=== PATIENT | female | born 1960 | race Caucasian/White ===

== ENCOUNTER 2018-11-08 18:56 | Inpatient (IN) | payer OTHER ==
[~2018-11-08] VITALS: Ht 165.1 cm; Wt 161.0 kg
[~2018-11-08 18:56] MED LIST: IBUP-974
[2018-11-08 19:24] VITALS: BP 163/77
--- NOTE | 2018-11-08 21:04 | NUR ---
PT AMBULATED TO BED 4 AT THIS TIME.
--- NOTE | 2018-11-08 21:15 | NUR ---
PATIENT PRESENTS TO ED WITH SOB AND LOWER EXTREMITY WEAKNESS. PT C/O SOB X8 DAYS, BILATERALY LOWER EXTREMITY WEAKNESS X2 MONTHS. PT DENIES CP AT THIS TIME, BUT STATES TO GET CHEST PAIN AT HS X1 WEEK. DENIES N/V/D; SKIN IS PINK/WARM/DRY; AAOX4 WITH EVEN AND STEADY GAIT BY WALKER; LUNGS CLEAR BL; HR EVEN AND REGULAR; PT DENIES ANY FEVER, OR COUGH AT THIS TIME; PATIENT STATES PAIN OF 10/10 IN BILATERAL LEGS AT THIS TIME; VSS; PATIENT POSITIONED FOR COMFORT; HOB ELEVATED; BEDRAILS UP X2; BED DOWN. ER MD MADE AWARE OF PT STATUS. PMH: HTN, DM, ARTHRITIS, HYPERLIPIDEMIA RX: WILL PROVIDE LIST
--- NOTE | 2018-11-08 21:16 | NUR ---
LAB AND RT AT BEDSIDE FOR BLOOD DRAWS.
--- NOTE | 2018-11-08 21:34 | NUR ---
ABG DONE ON ROOM AIR. RESULTS GIVEN TO MD MUHAMMAD. PLACED PT ON 2 L NC. SPO2 IS NOW 95%. MD MUHAMMAD AWARE AND AGREES. NO NEW ORDERS YET.
[2018-11-08 21:37] LABS: BASOPHILS % (AUTO) 0.4 % (0.0-2.0); EOSINOPHILS # (AUTO) 0.1 K/uL (0-0.4); EOSINOPHILS % (AUTO) 0.7 % (0.0-4.0); HEMATOCRIT 44.2 % (36-48); HEMOGLOBIN 13.4 g/dL (12.0-16.0); LYMPHOCYTES # (AUTO) 1.5 K/uL (2.5-16.5); LYMPHOCYTES % (AUTO) 20.1 % (20.5-51.1); MEAN CORPUSCULAR HEMOGLOBIN 26 pg (27-31); MEAN CORPUSCULAR HGB CONC 30 g/dL (33-37); MEAN CORPUSCULAR VOLUME 84.6 fL (80-94); MONOCYTES # (AUTO) 0.4 K/uL (0.8-1.0); MONOCYTES % (AUTO) 5.7 % (1.7-9.3); NEUTROPHILS # (AUTO) 5.5 K/uL (1.8-7.7); NEUTROPHILS % (AUTO) 73.1 % (42.2-75.2); PLATELET COUNT (AUTO) 156 K/uL (140-450); RED BLOOD CELL COUNT(AUTO) 5.22 MIL/uL (4.20-5.40); RED CELL DISTRIBUTION WIDTH 16.9 % (11.6-13.7); WHITE BLOOD COUNT (AUTO) 7.5 K/uL (4.8-10.8)
[2018-11-08 21:58] LABS: APPEARANCE,URINE CLEAR (CLEAR); BILIRUBIN,URINE NEGATIVE (NEGATIVE); BLOOD, URINE NEGATIVE (NEGATIVE); COLOR,URINE YELLOW (YELLOW); LEUKOCYTE ESTERASE ,URINE NEGATIVE (NEGATIVE); NITRITE, URINE NEGATIVE (NEGATIVE); UGLUCOSE NEGATIVE (NEGATIVE)
[2018-11-08 22:10] LABS: PROTHROMBIN TIME 10.6 secs (10.8-13.4)
[2018-11-08 22:11] LABS: ALBUMIN 3.2 g/dL (3.4-5.0); ANION GAP 9.8 (8-16); CARBON DIOXIDE 33.6 mmol/L (21-32); CREATININE 0.9 mg/dL (0.6-1.3); POTASSIUM 4.4 mmol/L (3.5-5.1); TOTAL BILIRUBIN 0.4 mg/dL (0.0-1.0)
[2018-11-08] MEDS ORDERED: FUROSEMIDE 40 MG/4 ML VIAL IVP ONE (23:00)
[2018-11-08] MEDS ORDERED: NITROGLYCERIN 2% 1 GM PKT TP ONE (23:00)
--- NOTE | 2018-11-08 23:00 | NUR ---
CALL FROM DONNA W/ PT INSURANCE, WILL BE ADMITING THE PT FOR OBSERVATION LEVEL OF CARE. ER AWARE.
[2018-11-09] VITALS (13 sets, daily range): BP systolic 91–138; BP diastolic 46–77
[2018-11-09] MEDS ORDERED: MORPHINE SULFATE 2 MG/ML SYR IVP PRN (00:15)
[2018-11-09] MEDS ORDERED: LORazepam 2 MG/ML VIAL IM/IVP PRN (00:15)
[2018-11-09] MEDS ORDERED: ZOLPIDEM 5 MG TAB PO PRN (00:15)
[2018-11-09] MEDS ORDERED: DOCUSATE SODIUM 100 MG GELCAP PO PRN (00:15)
[2018-11-09] MEDS ORDERED: ONDANSETRON 4 MG/2 ML VIAL IM/IVP PRN (00:15)
[2018-11-09] MEDS ORDERED: ACETAMINOPHEN 325 MG TAB PO PRN (00:15)
[2018-11-09] MEDS ORDERED: HYDROcodone/APAP 5/325 MG 1 TAB TAB PO PRN (00:15)
[2018-11-09] MEDS ORDERED: NITROGLYCERIN 0.4 MG TAB SL PRN (00:20)
[2018-11-09 00:39] LABS: BARBITURATE, URINE NEG. ng/ml (NEG <=200); BENZODIAZEPINE, URINE NEG. ng/mL (NEG <=200); CANNABINOID, URINE NEG. ng/mL (NEG <=50); COCAINE, URINE NEG. ng/mL (NEG <=300); OPIATE, URINE NEG. ng/mL (NEG <=2000); PHENCYCLIDINE SCREEN,URINE NEG. ng/mL (NEG <=25)
[2018-11-09 00:49] LABS: MAGNESIUM 1.7 mg/dL (1.8-2.4); PHOSPHORUS 3.9 mg/dL (2.5-4.9); THYROID STIMULATING HORMONE 4.72 uIU/mL (0.34-3.74)
[2018-11-09] MEDS ORDERED: ORE25 PO (00:50)
[2018-11-09] MEDS ORDERED: ASPI-1718 PO (00:54)
[2018-11-09] MEDS ORDERED: IBUP-2213 PO (00:54)
[2018-11-09] MEDS ORDERED: ATEN50TA8 PO (00:54)
[2018-11-09] MEDS ORDERED: ATOR10TA51 PO (00:54)
[2018-11-09] MEDS ORDERED: METF500T PO (00:54)
--- NOTE | 2018-11-09 03:00 | NUR ---
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
--- NOTE | 2018-11-09 03:08 | NUR ---
Admited to Tele. Will go to room 113. Belongings list completed. Report to Alta SHEPPARD.
[2018-11-09] MEDS: NACL 0.9% 1,000 ML IV SCH ×2 (03:33→16:53)
[2018-11-09] MEDS ORDERED: DEXTROSE 50% 50 ML SYR IVP PRN (04:25)
[2018-11-09] MEDS ORDERED: MAG SULF 2000 MG/WATER PREMIX 50 ML IV SCH (04:45)
--- NOTE | 2018-11-09 05:00 | NUR ---
PT HAS BEEN MONITORING CLOSE ASSISTING TO THE RESTROOM VOIDING WELL NOT SOB NOTED , ON TELEMETRY SB
[2018-11-09] MEDS: BLOOD GLUCOSE MONITORING 1 DEV DEV FS SCH ×4 (06:08→21:15)
[2018-11-09 06:25] LABS: BASOPHILS % (AUTO) 0.4 % (0.0-2.0); EOSINOPHILS # (AUTO) 0.1 K/uL (0-0.4); EOSINOPHILS % (AUTO) 1.4 % (0.0-4.0); HEMATOCRIT 43.2 % (36-48); LYMPHOCYTES # (AUTO) 1.8 K/uL (2.5-16.5); LYMPHOCYTES % (AUTO) 24.6 % (20.5-51.1); MEAN CORPUSCULAR HEMOGLOBIN 26 pg (27-31); MEAN CORPUSCULAR HGB CONC 30 g/dL (33-37); MONOCYTES # (AUTO) 0.5 K/uL (0.8-1.0); MONOCYTES % (AUTO) 6.6 % (1.7-9.3); NEUTROPHILS # (AUTO) 4.9 K/uL (1.8-7.7); PLATELET COUNT (AUTO) 163 K/uL (140-450); RED BLOOD CELL COUNT(AUTO) 5.09 MIL/uL (4.20-5.40); RED CELL DISTRIBUTION WIDTH 16.8 % (11.6-13.7); WHITE BLOOD COUNT (AUTO) 7.3 K/uL (4.8-10.8)
--- NOTE | 2018-11-09 06:25 | NUR ---
SR ON TELMETRY BLOOD SUGAR TEST 87, PT REMAINSTABLE AT THIS TIME
[2018-11-09 06:46] LABS: MAGNESIUM 1.4 mg/dL (1.8-2.4); PHOSPHORUS 4.6 mg/dL (2.5-4.9)
[2018-11-09 06:47] LABS: CREATININE 0.8 mg/dL (0.6-1.3)
[2018-11-09 06:50] LABS: CHOL/HDL RATIO 3.1 (1-4.5)
[2018-11-09 06:52] LABS: ANION GAP 6.6 (8-16); CARBON DIOXIDE 36.5 mmol/L (21-32); POTASSIUM 4.1 mmol/L (3.5-5.1)
[2018-11-09] MEDS: ALBUTEROL SULFATE/IPRATROPIU 3 ML SOL IH SCH ×3 (06:56→19:00)
--- NOTE | 2018-11-09 06:58 | NUR ---
FOUND PT OFF O2 SAT AT 83% PLACED O2 BACK ON PT AT 3LNC AND PT REFUSED BREATHING TX NO SIGNS OF DISTRESS NOTED AT THIS TIME
--- NOTE | 2018-11-09 07:30 | NUR ---
RECEIVED REPORT FROM FOREIGN EXCHANGE TRADER NURSE. PT IN STABLE CONDITION. RESPIRATIONS EVEN AND UNLABORED. 02 AT 3L VIA NC. IV INTACT AND PATENT. SAFETY MEASURES IN PLACE. BED ALARM SET. BED IN LOW POSITION. CALL LIGHT AT BEDSIDE. WILL CONTINUE TO MONITOR.
--- NOTE | 2018-11-09 08:13 | NUR ---
PATIENT HAS BEEN SCREENED AND CATEGORIZED MODERATE NUTRITION RISK. PATIENT WILL BE SEEN WITHIN 3-5 DAYS OF ADMISSION. 11/11/18ISABEL BOYD RD Addendum: 11/09/18 at [address] DISREGARD NOTE ABOVE. PATIENT HAS BEEN SCREENED AND CATEGORIZED HIGH NUTRITION RISK. PATIENT WILL BE SEEN WITHIN 1-2 DAYS OF ADMISSION. 11/09/18-11/10/[address]
[2018-11-09] MEDS ORDERED: LISINOPRIL 5 MG TAB PO SCH (09:00)
[2018-11-09] MEDS ORDERED: HYDROCHLOROTHIAZIDE 25 MG TAB PO SCH (09:00)
[2018-11-09] MEDS ORDERED: ATENOLOL 50 MG TAB PO SCH (09:00)
[2018-11-09] MEDS ORDERED: metFORMIN 500 MG TAB PO SCH (09:00)
--- NOTE | 2018-11-09 09:20 | NUR ---
GAVE ORDERED DUE MEDICATIONS. USED MANUFACTURING MAINTENANCE TECHNICIAN ADELA #[id number]. PT TOLERATED WELL. BED ALARM ON. BED IN LOW POSITION. CALL LIGHT AT BEDSIDE. WILL CONTINUE TO MONITOR.
[2018-11-09] MEDS: ASPIRIN 81 MG TAB.CHEW PO SCH (09:37)
[2018-11-09] MEDS: ATORVASTATIN 20 MG TAB PO SCH (09:38)
[2018-11-09] MEDS: INTERDRY CLOTH TP SCH (09:39)
[2018-11-09] MEDS: MAG SULF 2000 MG/WATER PREMIX 50 ML IV SCH ×2 (12:54→14:12)
--- NOTE | 2018-11-09 14:33 | NUR ---
PT LYING IN BED SLEEPING. RESPIRATIONS EVEN AND UNLABORED. O2 3L VIA NC. BED ALARM ON. BED IN LOW POSITION. CALL LIGHT AT BEDSIDE. WILL CONTINUE TO MONITOR.
--- NOTE | 2018-11-09 18:30 | NUR ---
CT ON HOLD DUE TO PT WEIGHT.
--- NOTE | 2018-11-09 19:06 | NUR ---
PT ASLEEP, FAMILY IN THE ROOM DOES NOT WANT ME TO WAKE HER.SHE DOES NOT LOOK IN ANY RESP DISTRESS, SAT IN 3L NC 99%.
--- NOTE | 2018-11-09 19:15 | NUR ---
GAVE REPORT TO HOLLOW HANDLE KNIFE ASSEMBLER NURSE FOR CONTINUITY OF CARE. PT IN STABLE CONDITION.
--- NOTE | 2018-11-09 19:15 | NUR ---
RECEIVED BEDSIDE REPORT FROM [place], PATIENT IN BED, NOT RESPONSIVE TO NAME BUT LIGHT SHAKING. OPENS EYES AND SHAKES HEAD IN YES OR NO MOTION. ON 4 L NC, O2 SAT AT 91%. LUNG SOUNDS ARE CLEAR BILATERALLY. IV IN LEFT WRIST 20 G, INFUSING NS AT 60 ML, PATIENT AND DRESSING INTACT. NOTED PITTING EDEMA ON LOWER EXTREMITIES 2 +. FAMILY AT BEDSIDE, QUESTIONS ANSWERED. CALL LIGHT WITHIN REACH WILL CONTINUE TO MONITOR.
--- NOTE | 2018-11-09 19:20 | NUR ---
INCREASED O2 TO 6 L VIA NC. O2 SAT 92%. R/T EXPLAINED TO KEEP O2 ADMINISTRATION BETWEEN 1-2 L/MIN. DECREASED TO 1 L O2 SAT 81%. PLACED ON 2 L O2SAT 84%. CHARGE NURSE AWARE, R/T AWARE, AWARE.
--- NOTE | 2018-11-09 20:30 | NUR ---
PATIENT DIFFICULT TO WAKE UP, CHARGE NURSE CALLED RT. BLOOD GLUCOSE 159, AT BEDSIDE. ORDER FOR BIPAP, R/T AT BEDSIDE PLACING BIPAP. O2SAT FLUCTUATING 86-81% RR 14 BP 114/54 PRIOR TO BIPAP ADMINISTRATION. O2SAT NOW 92%-90% RR 30 ON BIPAP. WILL DO CHEST X RAY. Addendum: 11/10/18 at 0053 by Ladonna Ewing RN BLOOD GLUCOSE 165
--- NOTE | 2018-11-09 21:14 | NUR ---
DUE MEDICATIONS GIVEN, PATIENT ASLEEP. DID NOT RESPOND TO LIGHT PAIN OF SQ HEPARIN AND INSULIN ADMINISTRATION. CHARGE NURSE AWARE.
[2018-11-09] MEDS: INSULIN LISPRO SLIDING SCALE 100 UNITS/ML VIAL SUBQ PRN (21:15)
--- NOTE | 2018-11-09 21:38 | NUR ---
FAMILY STATED O2SAT WENT DOWN TO 74% CALLED RT. R/T AT BEDSIDE.
--- NOTE | 2018-11-09 22:00 | NUR ---
PATIENT UNRESPONSIVE, BREATHING, HAS PULSE. O2SAT AT 74% WITH BIPAP. CHARGE NURSE AWARE, R/T AT BESIDE, PUT IN ORDER TO TRANSFER TO ICU FOR HIGHER LEVEL OF CARE. PATIENT TRANSFERRED, BEDSIDE REPORT GIVEN TO ICU NURSE MAMTA FOR CONTINUITY OF CARE.
--- NOTE | 2018-11-09 22:03 | NUR ---
RECEIVED REPORT FROM TELEMETRY NURSECESAR. RT AND ROAD COMMISSIONER @ BEDSIDE FOR TRANSPORT PT LETHARGIC, NO VERBAL RESPONSE WHEN PROMPTED. PT OPENING EYES SPONTANEOUSLY, NO EYE TRACKING. VS HR 60 BP 129/76 RR28 SPO2 92%. NSR +2 GENERALIZED EDEMA. DIM LUNG SOUNDS. PT OBESE, + BOWEL SOUNDS, PT INCONTINENT TO URINE. SKIN INTACT, BLANCHABLE REDNESS TO BLE AND SACRAL COCCYX AREA. REDNESS NOTED UNDER SKIN FOLDS. PERIPHERAL IV TO L WRIST, PATENT @ THIS TIME. WILL CONTINUE TO OBSERVE.
--- NOTE | 2018-11-09 22:20 | NUR ---
DR KUMAR CALLED TO BEDSIDE FOR INTUBATION. 2225:ETOMODATE 40 MG IVP GIVEN X1 PER ER MD ORDER, MD UNSUCCESSFUL TO INTUBATE WITH 7.5 ETT DUE TO PT ANATOMY VITAL SIGNS: HR 58 124/67 92% VIA BVM. THICK DARK GREEN/COTO SECRETIONS NOTED. 2235: ETOMADATE 40 MG IVP X1, SUCCINYLCHOLINE 40 MG IVP X1 GIVEN PER MD ORDER. MD UNSUCCESSFUL TO INTUBATE WITH 7.5 ETT VITAL SIGNS: HR 61 BP 134/63 94%% BVM. 2255: 100 MG PROPOFOL X2 GIVEN BY ED NURSE LMA# 5 PLACED. EQUAL BILATERAL LUNG SOUNDS, COPIOUS AMOUNTS OF SECRETIONS NOTED, COTO THICK, DARK BROWN. PT TRANSFERRED TO VENTILATOR MACHINE. VITAL SIGNS HR 58 BP 109/62 95% VIA VENTILATOR @ 100% FIO2 @ THIS TIME.
[2018-11-09] MEDS ORDERED: PROPOFOL 1000 MG/100 ML PREMIX 100 ML IV ONE (23:04)
[2018-11-09] MEDS: PROPOFOL 1000 MG/100 ML PREMIX 100 ML IV PRN (23:10)
--- NOTE | 2018-11-09 23:10 | NUR ---
PROPOFOL DRIP STARTED @ 35 MCG/KG/MIN FOR RASS-3. PT DRY WEIGHT 179 KG.
--- NOTE | 2018-11-09 23:10 | NUR ---
2199 PATIENT TRANSFERRED TO ICU DUE TO HYPERCAPNIA AND NEEDED INTUBATION, DR. UGARTE WAS CALLED AND AT 0 INTUBATION WAS ATTEMPTED WITH 7.5 ETT AND UNSUCCESSFUL DUE TO HER NECK SIZE AND ENLARGED TONGUE. INTUBATION WAS ATTEMPTED TWICE WITH 7.0 ETT AND STILL UNSUCCESSFUL. THEN DR. UGARTE PLACE #5 LMA. BREATH SOUNDS BILATERAL AND POSITIVE ETCO2. PLACED PATIENT ON VENTILATOR AC-20, 650ML, +5 AND 40% FIO2. HR-52, SAO2-97%. ABG TO FOLLOW
[2018-11-10] VITALS (106 sets, daily range): BP systolic 84–167; BP diastolic 31–97
[2018-11-10] MEDS ORDERED: methylPREDNISolone SS 40 MG/ML VIAL IVP SCH
[2018-11-10] MEDS ORDERED: MAG SULF 2000 MG/WATER PREMIX 50 ML IV SCH
--- NOTE | 2018-11-10 | NUR ---
PT @ RASS-3, FLACC 0, VAP ORAL CARE PROVIDED. WILL CONTINUE TO OBSERVE.
[2018-11-10] MEDS ORDERED: MORPHINE SULFATE 2 MG/ML SYR IVP ONE (00:25)
[2018-11-10] MEDS ORDERED: PROPOFOL 200 MG/20 ML VIAL IV ONE ×2 (00:45)
[2018-11-10] MEDS ORDERED: SUCCINYLCHOLINE CHLORIDE 200 MG/10 ML VIAL IVP ONE (00:45)
[2018-11-10] MEDS ORDERED: ETOMIDATE 20 MG/10 ML VIAL IVP ONE ×2 (00:45)
[2018-11-10] MEDS ORDERED: DOPamine 400 MG/D5W PREMIX 250 ML IV SCH ×2 (00:55→06:45)
[2018-11-10] MEDS ORDERED: DOPamine 400 MG/D5W PREMIX 250 ML IV ONE (01:11)
[2018-11-10] MEDS ORDERED: PROPOFOL 1000 MG/100 ML PREMIX 100 ML IV ONE (01:13)
[2018-11-10] MEDS: PROPOFOL 1000 MG/100 ML PREMIX 100 ML IV PRN ×9 (01:15→23:59)
--- NOTE | 2018-11-10 01:15 | NUR ---
DR. CAMARENA @ BEDSIDE
--- NOTE | 2018-11-10 01:18 | NUR ---
DR. CAMARENA CALLED ANESTHESIOLOGIST, DR. CABEZAS TO INTUBATE PT ETT, WILL CONTINUE TO OBSERVE.
--- NOTE | 2018-11-10 01:20 | NUR ---
DR CAMARENA ORDERED DOPAMINE FOR PT BRADYCARDIA, PT HR 30S @ THIS TIME. TITRATE TO KEEP HR>50.
--- NOTE | 2018-11-10 01:25 | NUR ---
DOPAMINE RUNNING @ 5 MCG/KG/MIN (33.56 ML/HR) PT DRY WEIGHT 179 KG. HR 58-60, BP 138/63 SPO2 94%. WILL CONTINUE TO OBSERVE.
--- NOTE | 2018-11-10 01:50 | NUR ---
@ [facility] Addendum: 11/10/18 at 0458 by Benton Padilla RN ANESTHIOLOGIST
[2018-11-10] MEDS ORDERED: LORazepam 2 MG/ML VIAL IVP PRN (02:00)
--- NOTE | 2018-11-10 02:00 | NUR ---
APPLIED BUE SOFT WRIST RESTRAINTS PER PROTOCOL. WILL CONTINUE TO OBSERVE.
--- NOTE | 2018-11-10 02:00 | NUR ---
, ANESTHIOLOGIST, GAVE 200 MG SUCCINYLCHOLINE PREOP VIA PERIPHERAL WRIST IV. PT CURRENTLY ON PROPOFOL @ 35 MCG/KG/MIN AND DOPAMINE @ 5 MCG/KG/MIN. LMA #[address] PATRICK MD THEN PLACED 7.5 ETT. 0215: RADIOLOGY @ BEDSIDE FOR CXR TO CONFIRM ETT PLACEMENT. AND DR. CAMARENA CONFIRMED ETT PLACEMENT VIA CXR. 7.5 ETT 22CM @ TEETH. 0220: DR CAMARENA D/C'D DOPAMINE DRIP. PT HR NOW 60-70 BP 148/76 SPO2 98%. WILL CONTINUE TO OBSERVE.
--- NOTE | 2018-11-10 02:20 | NUR ---
DR. CAMARENA CALLED DR. CRANDALL, ANESTHESIOLOGIST ABOUT 0120 TO INTUBATE PATIENT. LMA WAS REMOVED AND INTUBATED WITH ETT SIZE 7.5 AND 22CM@ TEETH. BREATH SOUNDS BILATERAL, ETCO2- POSITIVE, X-RAY DONE AND TUBE IN PROPER POSITION. DR. CAMARENA DECREASED VT-500 AND INCREASED FIO2 TO 100%.
[2018-11-10] MEDS: NACL 0.9% 1,000 ML IV SCH (03:19)
--- NOTE | 2018-11-10 03:30 | NUR ---
CONSENT FOR CENTRAL LINE PLACEMENT OBTAINED VIA PHONE FROM ERIKA COOK WITH TWO RN VERIFICATION. 0345 : TIMEOUT TAKEN FOR CENTRAL LINE PLACEMENT, US TECH AND @ BEDSIDE. 9480: RADIOLOGY @ BEDSIDE FOR CXR TO CONFIRM PLACEMENT
--- NOTE | 2018-11-10 05:21 | NUR ---
CENTRAL LINE CONFIRMED TO USE PER DR. VERAS.
--- NOTE | 2018-11-10 05:21 | NUR ---
INFORMED DR. VERAS ABOUT PT HR 48-50. AWARE. NO NEW ORDERS, PHYSICIAN TO SEE PT.
[2018-11-10] MEDS: methylPREDNISolone SS 40 MG/ML VIAL IVP SCH ×4 (05:49→23:24)
[2018-11-10 05:58] LABS: BASOPHILS % (AUTO) 0.2 % (0.0-2.0); EOSINOPHILS # (AUTO) 0.1 K/uL (0-0.4); EOSINOPHILS % (AUTO) 0.6 % (0.0-4.0); HEMOGLOBIN 12.5 g/dL (12.0-16.0); LYMPHOCYTES # (AUTO) 1.5 K/uL (2.5-16.5); LYMPHOCYTES % (AUTO) 17.1 % (20.5-51.1); MEAN CORPUSCULAR HEMOGLOBIN 25 pg (27-31); MEAN CORPUSCULAR HGB CONC 30 g/dL (33-37); MEAN CORPUSCULAR VOLUME 85.7 fL (80-94); MONOCYTES # (AUTO) 0.4 K/uL (0.8-1.0); NEUTROPHILS # (AUTO) 6.9 K/uL (1.8-7.7); NEUTROPHILS % (AUTO) 77.1 % (42.2-75.2); PLATELET COUNT (AUTO) 137 K/uL (140-450); RED CELL DISTRIBUTION WIDTH 17.4 % (11.6-13.7)
--- NOTE | 2018-11-10 06:00 | NUR ---
NOTIFIED DR BOOTH PT HR 40-50, STATED TO RESTART DOPAMINE.
[2018-11-10 06:19] LABS: CREATININE 1.2 mg/dL (0.6-1.3)
[2018-11-10] MEDS: ALBUTEROL SULFATE/IPRATROPIU 3 ML SOL IH SCH ×2 (06:23→19:18)
--- NOTE | 2018-11-10 06:23 | NUR ---
REC'D PT ON CARESCAPE VENT SETTTINGS AC20 VT 500 PEEP 7 FIO2 100% ALARMS ON AND AUDIBLE AND AMBU BAG AT SIDE OF VENT AND VENT IS PLUGGED INTO RED OUTLET, I\L TX GIVEN WITH DUONEB 3ML WITH NO ADVERSE REACTION POST TX B\S ARE RHONCHI BILATERALLY, SXN PT SMALL AMT OF THIN BLOODY SECRETIONS, PT IS ORALLY INTUBATED WITH 7.5 ET TUBE SECURED WITH ANCHOR FAST AT 22CM @TEETH MIDLINE AND SKIN INTEGRITY IS INTACT
[2018-11-10] MEDS: BLOOD GLUCOSE MONITORING 1 DEV DEV FS SCH ×4 (06:42→20:24)
[2018-11-10 06:54] LABS: ANION GAP 12.3 (8-16); CARBON DIOXIDE 28.2 mmol/L (21-32); POTASSIUM 4.5 mmol/L (3.5-5.1)
--- NOTE | 2018-11-10 07:30 | NUR ---
REPORT GIVEN TO DAY SHIFT FOR CONTINUITY OF CARE
--- NOTE | 2018-11-10 07:49 | NUR ---
ORAL CARE PROVIDED, PATIENT TOLERATED WELL. WILL CONTINUE TO MONITOR
--- NOTE | 2018-11-10 08:10 | NUR ---
DR. LEONE AND RESIDENT PHYSICIANS HERE TO ROUND ON PATIENT, WILL FOLLOW UP ON ANY ORDERS.
--- NOTE | 2018-11-10 08:13 | NUR ---
RECEIVED BEDSIDE REPORT FROM TECHNICAL INSPECTOR RNMAMTA, FOR CONTINUITY OF CARE. PATIENT IS SEDATED WITH PROPOFOL, RASS -3. SKIN IS WARM AND DRY, INTACT. SHE HAS CENTRAL LINE TO RIGHT IJ, TRIPLE LUMEN, AND PERIPHERAL IV SITE TO L HAND, AND L FOREARM. PATIENT HAS ETT TO VENT, BREATHING EVEN AND UNLABORED. SB ON MONITOR, ON DOPAMINE DRIP 2 MCG/MIN, FLACC 0. PATIENT HAS BURTON CATHETER IN PLACE. HOB IS 30 DEGREES, SAFETY PRECAUTIONS ASSESSED AND ENFORCED. NO SIGNS OF DISTRESS AT THIS TIME. WILL CONTINUE TO MONITOR Addendum: 11/10/18 at 0959 by Steffany Martinez RN RECEIVED REPORT AT 0710 Addendum: 11/10/18 at 1013 by Steffany Martinez RN PATIENT'S DRY WEIGHT IS 179 KG
[2018-11-10] MEDS: ASPIRIN 81 MG TAB.CHEW PO SCH (08:25)
[2018-11-10] MEDS: ATORVASTATIN 20 MG TAB PO SCH (08:27)
--- NOTE | 2018-11-10 08:37 | NUR ---
PATIENT'S FAMILY AT BEDSIDE, UPDATED ON PATIENT'S CONDITION.
[2018-11-10] MEDS: PANTOPRAZOLE 40 MG INJ VIAL IVP SCH (08:41)
[2018-11-10] MEDS: INTERDRY CLOTH TP SCH (08:43)
--- NOTE | 2018-11-10 09:24 | NUR ---
DR. TORO IN TO SEE AND EXAMINE PATIENT, UPDATED ON PATIENT'S CONDITION. SPOKE WITH FAMILY REGARDING POC.
--- NOTE | 2018-11-10 09:51 | NUR ---
REMOVED RESTRAINTS NO NEED FOR RESTRAINTS AT THIS TIME.
--- NOTE | 2018-11-10 11:12 | NUR ---
ABG RESULTS READ BACK TO DR. TORO WITH ONLY MUNA BEING PEEP INCREASED TO 10
[2018-11-10] MEDS ORDERED: LORazepam 2 MG/ML VIAL IM/IVP PRN (11:45)
--- NOTE | 2018-11-10 12:40 | NUR ---
SUPERVISOR PLASTERING AT BEDSIDE FOR VQ SCAN, NO SIGNS OF DISTRESS AT THIS TIME
--- NOTE | 2018-11-10 12:45 | NUR ---
PT IS HAVING VQ SCAN NO HHN GIVEN AT THIS TIME NO SIGNS OF DISTRESS NOTED
--- NOTE | 2018-11-10 13:42 | NUR ---
11/10/18 RD INITIAL ASSESSMENT COMPLETED PLEASE REFER TO NUTRITION ASSESSMENT UNDER CARE ACTIVITY FOR ESTIMATED NUTRITIONAL NEEDS. 1. CONTINUE NPO AND MEDICALLY NECESSARY 2. IF/WHEN PATIENT IS MEDICALLY STABLE CONSIDER ADVANCING DIET TO CCHO 60 GM 3. FOLLOW UP WITH WEIGHT MANAGEMENT EDUCATION 4. RD TO FOLLOW-UP 2-3 DAYS, HIGH RISK YAIR BOYD RD
--- NOTE | 2018-11-10 13:48 | NUR ---
PATIENT'S SON IS HERE TO SPEAK WITH REIMBURSEMENT CONSULTANT, HARSH. UPDATED ON PATIENT'S CONDITION
--- NOTE | 2018-11-10 14:19 | NUR ---
TURNED OFF PATIENT'S DOPAMINE DRIP, WILL CONTINUE TO MONITOR.
[2018-11-10] MEDS: DEXT 5% /NACL 0.9% 1,000 ML IV SCH (15:01)
--- NOTE | 2018-11-10 16:24 | NUR ---
ORAL CARE PROVIDED, PATIENT TOLERATED WELL. REMOVED PERIPHERAL IV SITE TO LEFT HAND, CANNULA INTACT, APPLIED PRESSURE TO SITE AND TAPED WITH GAUZE. NO S/S OF INFILTRATION NOTED.
--- NOTE | 2018-11-10 16:26 | NUR ---
PATIENT FAMILY AT BEDSIDE, UPDATED ON PATIENT'S CONDITION.
--- NOTE | 2018-11-10 16:52 | NUR ---
BLOOD GLUCOSE IS 161, DID NOT ADMINISTER COVERAGE DR. LEVIN STATED NO COVERAGE SINCE PATIENT IS NOT STARTED ON TUBE FEEDING YET.
--- NOTE | 2018-11-10 17:31 | NUR ---
ABG DRAWN AND RESULTS GIVEN TO DR. LEVIN NO CHANGES MADE FAMILY AT BEDSIDE SXN PT MODERATE AMT OF BLOOD TINT SECRETIONS
--- NOTE | 2018-11-10 18:16 | NUR ---
STARTED PATIENT ON TUBE FEEDING, TOLERATING WELL AT THIS TIME.
--- NOTE | 2018-11-10 19:13 | NUR ---
ENDORSED CONTINUITY OF CARE TO BENZOL STILL OPERATOR RNCHARITO. NO SIGNS OF DISTRESS NOTED.
--- NOTE | 2018-11-10 19:20 | NUR ---
RECEIVED BEDSIDE REPORT FROM MORNING SHIFT RN, RUBÉN, FOR CONTINUITY OF CARE. NONVERBAL, RESPONDS/WITHDRAWS TO PAIN.SB ON SHANK STITCHER. ETT TO VENT. TEMP 99.6, HR=52, SATING 89-90%, RR=14, BP = 111/57. RT HANI AT BEDSIDE. VENT SETTINGS, FIO2=90, GS=796, RR=20, PEEP=10. LUNG SOUNDS CLEAR ON UPPER/LOWER BILATERAL LOBES. NGT IN PLACE. GLUCERNA 1.2, AT 1OML/HR. BOWEL SOUNDS ACTIVE X4 QUARDANRS. BURTON IN PLACE, URINE IS BRITANY/CLOUDY. RIGHT IJ INFUSING NS D5NS AT 70ML/HR, AND PROPOFOL AT 28MCG. SKIN IS INTACT, REDNESS ON ADOMINAL SKIN FOLDS. OLD/HEALED SCAR ON RIGHT LOWER LEG. 1+ PITTING EDEMA ON RIGHT UPPER EXTREMITY AND RIGHT FEET, 2+ PITTING EDEMA ON LEFT HAND/LEFT FEET. FULL CODE, ALLERGY TO TYLENOL ON BAND, FALL/ASPIRATON PRECAUTIONS MAINTAINED. STANDARD ISOLATION. HOB ELEVATED, SIDE RAILS UP X4. DRY WEIGHT BEING USED IS 179KG.
--- NOTE | 2018-11-10 20:48 | NUR ---
FAMILY AT BEDSIDE
--- NOTE | 2018-11-10 21:00 | NUR ---
RASS -3 MAINTAINED, PT RESPONDS TO VOICE. PROPOFOL AT 30ML/HR. VAP ORAL CARE PROVIDED/SUCTIONED INSIDE OF MOUTH.
--- NOTE | 2018-11-10 21:22 | NUR ---
RECEIVED BEDSIDE REPORT FROM MORNING SHIFT RNRUBÉN, FOR CONTINUITY OF CARE. NONVERBAL, RESPONDS/WITHDRAWS TO PAIN.SB ON MARBLE POLISHER. ETT TO VENT. TEMP 99.6, HR=52, SATING 89-90%, RR=14, BP = 111/57. RT HANI AT BEDSIDE. VENT SETTINGS, FIO2=90, VX=952, RR=20, PEEP=10. LUNG SOUNDS CLEAR ON UPPER/LOWER BILATERAL LOBES. NGT IN PLACE. GLUCERNA 1.2, AT 1OML/HR. BOWEL SOUNDS ACTIVE X4 QUARDANRS. BURTON IN PLACE, URINE IS BRITANY/CLOUDY. RIGHT IJ INFUSING NS D5NS AT 70ML/HR, AND PROPOFOL AT 28MCG. SKIN IS INTACT, REDNESS ON ADOMINAL SKIN FOLDS. OLD/HEALED SCAR ON RIGHT LOWER LEG. 1+ PITTING EDEMA ON RIGHT UPPER EXTREMITY AND RIGHT FEET, 2+ PITTING EDEMA ON LEFT HAND/LEFT FEET. FULL CODE, ALLERGY TO TYLENOL ON BAND, FALL/ASPIRATON PRECAUTIONS MAINTAINED. STANDARD ISOLATION. HOB ELEVATED, SIDE RAILS UP X4. DRY WEIGHT BEING USED IS 179KG. Addendum: 11/10/18 at 2131 by Nasreen Villasenor RN ERROR - INITIAL ASSESSMENT COMPLETED AT 1920
[2018-11-10] MEDS: INSULIN LISPRO SLIDING SCALE 100 UNITS/ML VIAL SUBQ PRN (21:42)
--- NOTE | 2018-11-10 21:44 | NUR ---
CALLED , UPDATED ON BLOOD GLUCOSE 157, STATED TO HOLD GIVING INSULIN COVERAGE AT THIS TIME.
[2018-11-10] MEDS: MORPHINE SULFATE 2 MG/ML SYR IVP PRN (22:08)
[2018-11-10] MEDS: LORazepam 2 MG/ML VIAL IM/IVP PRN (23:37)
--- NOTE | 2018-11-10 23:48 | NUR ---
TITRATE DRIP TO 32.20ML/HR TO MAINTAIN RASS -3.
[2018-11-11] VITALS (66 sets, daily range): BP systolic 116–167; BP diastolic 47–88
--- NOTE | 2018-11-11 00:49 | NUR ---
RT SKINNER AT BEDSIDE TO COLLECT SAMPLE.
[2018-11-11] MEDS: PROPOFOL 1000 MG/100 ML PREMIX 100 ML IV PRN ×3 (02:17→07:46)
--- NOTE | 2018-11-11 04:00 | NUR ---
AT BEDSIDE, UPDATED ON CLOUDY URINE AND WHITE AND RED TINGED SEDIMENTS IN URINE. URINE CULTURE ORDERED. WILL STEWART OUT.
[2018-11-11] MEDS: LORazepam 2 MG/ML VIAL IM/IVP PRN (04:47)
[2018-11-11] MEDS: DEXT 5% /NACL 0.9% 1,000 ML IV SCH (05:30)
--- NOTE | 2018-11-11 06:15 | NUR ---
AM CARES PROVIDED, BURTON CATH CARE AND ORAL/MOUTH SUCTIONING PROVIDED TO PATIENT. DRESSING INSERTED INTO SKIN FOLDS. FLACC 0. FRESH LINENS/GOWN PROVIDED TO PATIENT. URINE LAWNTE=[id number] QSHIFT, NO BOWEL MOVEMENT QSHIFT.
[2018-11-11] MEDS: methylPREDNISolone SS 40 MG/ML VIAL IVP SCH ×4 (06:28→23:12)
--- NOTE | 2018-11-11 06:41 | NUR ---
DR LEVIN IN TO SEE PATIENT, UPDATED ON PT CONDITIONS, WILL UPDATE WITH NEW ORDERS.
[2018-11-11] MEDS: ALBUTEROL SULFATE/IPRATROPIU 3 ML SOL IH SCH ×3 (07:02→19:00)
--- NOTE | 2018-11-11 07:03 | NUR ---
RECEIVED BEDSIDE REPORT FROM PARTS AND SERVICE MANAGER RN, CHARITO, FOR CONTINUITY OF CARE. PATIENT IS SEDATED WITH PROPOFOL, RASS -3, DRY WEIGHT 179KG. SKIN IS WARM AND DRY, INTACT. SHE HAS CENTRAL LINE TO RIGHT IJ, TRIPLE LUMEN. PATIENT HAS ETT TO VENT, BREATHING EVEN AND UNLABORED. SB ON MONITOR, FLACC 0. SHE HAS NGT TO LEFT NARES TO TUBE FEEDING. PATIENT HAS BURTON CATHETER IN PLACE TO LIGHT BRITANY URINE WITH SEDIMENTS. HOB IS 30 DEGREES, SAFETY PRECAUTIONS ASSESSED AND ENFORCED. NO SIGNS OF DISTRESS AT THIS TIME. WILL CONTINUE TO MONITOR.
[2018-11-11] MEDS: BLOOD GLUCOSE MONITORING 1 DEV DEV FS SCH ×4 (07:05→20:11)
[2018-11-11] MEDS: INSULIN LISPRO SLIDING SCALE 100 UNITS/ML VIAL SUBQ PRN ×2 (07:44→21:25)
--- NOTE | 2018-11-11 08:36 | NUR ---
AND RESIDENT PHYSICIANS IN TO ROUND ON PATIENT, WILL FOLLOW UP ON ANY ORDERS.
[2018-11-11] MEDS ORDERED: LISINOPRIL 5 MG TAB NG SCH (09:30)
--- NOTE | 2018-11-11 09:30 | NUR ---
DR. TORO IN TO SEE PATIENT, UPDATED ON PATIENT'S CONDITION. WILL FOLLOW UP ON ANY ORDERS.
--- NOTE | 2018-11-11 09:45 | NUR ---
SEDATION VACATION STARTED FOR PATIENT, TOLERATING WELL, ABLE TO OPEN EYES AND SQUEEZE HANDS. DR. MUNA PHELAN.
--- NOTE | 2018-11-11 09:50 | NUR ---
DR. LEVIN AWARE THAT PATIENT'S HR IS BELOW 40, STATES TO CHANGE PROPOFOL TO VERSED. WILL FOLLOW UP ON ORDER.
[2018-11-11] MEDS: PANTOPRAZOLE 40 MG INJ VIAL IVP SCH (10:13)
--- NOTE | 2018-11-11 10:30 | NUR ---
PER DR. LEVIN, DO NOT ADMINISTER PO MEDS FOR POSSIBLE ASPIRATION PNA.
[2018-11-11] MEDS: MORPHINE SULFATE 2 MG/ML SYR IVP PRN (10:52)
[2018-11-11] MEDS ORDERED: LEVOTHYROXINE 200 MCG VIAL IV SCH (11:00)
[2018-11-11] MEDS ORDERED: PIPER/TAZO 3.375GM/D5W PREMIX 50 ML IV SCH (12:00)
[2018-11-11 12:03] LABS: BASOPHILS % (AUTO) 0.2 % (0.0-2.0); EOSINOPHILS % (AUTO) 0.1 % (0.0-4.0); HEMATOCRIT 40.8 % (36-48); HEMOGLOBIN 12.5 g/dL (12.0-16.0); LYMPHOCYTES # (AUTO) 0.4 K/uL (2.5-16.5); LYMPHOCYTES % (AUTO) 4.9 % (20.5-51.1); MEAN CORPUSCULAR HEMOGLOBIN 26 pg (27-31); MEAN CORPUSCULAR HGB CONC 31 g/dL (33-37); MEAN CORPUSCULAR VOLUME 82.8 fL (80-94); MONOCYTES # (AUTO) 0.2 K/uL (0.8-1.0); MONOCYTES % (AUTO) 3.2 % (1.7-9.3); NEUTROPHILS # (AUTO) 6.7 K/uL (1.8-7.7); NEUTROPHILS % (AUTO) 91.6 % (42.2-75.2); PLATELET COUNT (AUTO) 154 K/uL (140-450); RED BLOOD CELL COUNT(AUTO) 4.93 MIL/uL (4.20-5.40); RED CELL DISTRIBUTION WIDTH 16.9 % (11.6-13.7); WHITE BLOOD COUNT (AUTO) 7.3 K/uL (4.8-10.8)
[2018-11-11] MEDS: MIDAZOLAM MDV 50 MG in NACL 0.9% 40 ML IV SCH ×2 (12:21→20:02)
[2018-11-11 12:29] LABS: CREATININE 0.8 mg/dL (0.6-1.3)
[2018-11-11 12:34] LABS: ANION GAP 5.1 (8-16); CARBON DIOXIDE 33.8 mmol/L (21-32); POTASSIUM 3.9 mmol/L (3.5-5.1)
[2018-11-11] MEDS ORDERED: SILDENAFIL 20 MG TAB PO SCH (13:00)
[2018-11-11] MEDS ORDERED: LORazepam 2 MG/ML VIAL IVP PRN (13:05)
[2018-11-11] MEDS: CLINDAMYCIN 300 MG in DEXTROSE 5% 50 ML IV SCH ×3 (13:08→23:13)
--- NOTE | 2018-11-11 14:24 | NUR ---
TUBE FEEDING RECOMMENDATIONS WERE GIVEN TO DR. LEVIN FOR VITAL AT 75 ML/HR WITH FLUSH OF [address]
--- NOTE | 2018-11-11 15:03 | NUR ---
SPOKE WITH DR. LEVIN ABOUT PATIENT'S HR GOING BELOW 40'S, STATES THAT DR. WEAVER SAID THAT HR IS OKAY AND HE WILL COME IN TO SEE PATIENT.
[2018-11-11] MEDS: NACL 0.9% 1,000 ML IV SCH (16:20)
--- NOTE | 2018-11-11 17:06 | NUR ---
CONTINUED TO MONITOR PT ON VENT WITH SETTINGS CHARTED BREATH SOUNDS PRESENT BILAT COARSE SXN PT WITH REDDISH SECS DECREASED EI02 TO .50 DECREASED PEEP TO 7 RN AWARE AMBU BAG AT BEDSIDE WILL CONTINUE TO MONITOR PT ON VENT VENT [id number] INTO RED OUTLET
--- NOTE | 2018-11-11 17:15 | NUR ---
CHANGED CENTRAL LINE DRESSING, PATIENT TOLERATED WELL. PROVIDED ORAL CARE, TOLERATING WELL. NO SIGNS OF DISTRESS AT THIS TIME
--- NOTE | 2018-11-11 17:42 | NUR ---
PROVIDED BURTON CARE AND EMPTIED BURTON BAG. PATIENT TOLERATED WELL
--- NOTE | 2018-11-11 18:07 | NUR ---
DR. WEAVER IN TO SEE PATIENT, UPDATED ON PATIENT'S CONDITION. WILL FOLLOW UP ON ANY ORDER.
--- NOTE | 2018-11-11 18:27 | NUR ---
IN TO SEE AND EXAMINE PATIENT, UPDATED ON PATIENT'S CONDITION, WILL FOLLOW UP ON ANY ORDERS.
--- NOTE | 2018-11-11 19:04 | NUR ---
ENDORSED CONTINUITY OF CARE TO JAVA DESIGNER RNDIANNA. NO SIGNS OF DISTRESS NOTED
--- NOTE | 2018-11-11 19:08 | NUR ---
RECEIVED REPORT FROM AM SHIFT. PT SEDATED. RASS -3. DRY WEIGHT USED 181 KG. LUNG SOUNDS CLEAR. ETT TO VENT. VENT SETTINGS FIO2 50 VT 500 RATE 16 PEEP 7. SB ON MONITOR. PULSES PRESENT X4 EXTREMITIES. ABD SOFT. NGT TO L NARES. FEEDING 75ML/HR WITH 100ML Q 4H H2O. F/C IN PLACE. BLADDER NONDISTENDED. IV SITE TO RIGHT IJ TRIPLE LUMEN. ON VERSED DRIP 5ML. BRUISING NOTE RUE. SKIN INTACT. BED IN LOWEST POSITION. SIDE RAILS UP X4. FAMILY AT BEDSIDE.
--- NOTE | 2018-11-11 19:20 | NUR ---
PT TRANSFERRED FROM ICU BED 01 TO ICU BED 02 WITH LARGE BED. NEW BAG OF VERSED ADMINISTERED.
[2018-11-11] MEDS: SILDENAFIL 20 MG TAB NG SCH (20:17)
--- NOTE | 2018-11-11 20:40 | NUR ---
ENDORSED CARE TO RN FOR CONTINUITY OF CARE
--- NOTE | 2018-11-11 21:20 | NUR ---
BS CHECKED 165 NOTED, ADMINISTERED 2UNITS OF HUMALOG ORDERED. PATIENT TOLERATED WELL WITH VENT SETTING AND VERSED DRIP, RASS -3 NOTED. NO ACUTE DISTRESS NOTED. SB ON THE MONITOR WITH HR 50'S NOTED. FAMILY MEMBERS AT BEDSIDE. WILL CONTINUE TO MONITOR.
--- NOTE | 2018-11-11 21:23 | NUR ---
RCV'D PT ON MECHANICAL VENTILATION INTUBATED WITH 7.5 ETT AT 21 CM AT LIP. SETTINGS CHARTED. PT IS SEDATED. HHN TX GIVEN WITH NO ADVERSE REACTION. NO SOB OR DISTRESS NOTE. FAMILY AT BEDSIDE. MOVED PT FROM BED 1 TO BED 2 WITH NO INCIDENT. VENT IS CONNECTED TO RED OUTLET. ALARMS AUDIBLE. AMBU BAG AT BEDSIDE. WILL CONTINUE TO MONITOR.
--- NOTE | 2018-11-11 23:30 | NUR ---
NO ACUTE DISTRESS NOTED. HR 45 TO 55 NOTED, SB ON THE MONITOR. FLACC 0, RASS -3 WITH VERSED DRIP. WILL CONTINUE TO MONITOR.
[2018-11-12] VITALS (47 sets, daily range): BP systolic 129–173; BP diastolic 66–88
--- NOTE | 2018-11-12 01:26 | NUR ---
VENT CHECK. PT ASLEEP COMFORTABLY. NO SOB OR DISTRESS NOTED. WILL CONTINUE TO MONITOR.
[2018-11-12] MEDS: MORPHINE SULFATE 2 MG/ML SYR IVP PRN (01:47)
--- NOTE | 2018-11-12 01:50 | NUR ---
ADMINISTERED PRN PAIN MEDICATION ORDERED. FLACC 6 AND AGITATION NOTED. WILL CONTINUE TO MONITOR.
--- NOTE | 2018-11-12 03:30 | NUR ---
HR 50 WITH SB ON THE MONITOR. TOLERATED WELL WITH VENT AND VERSED DRIP, RASS -3 NOTED. WILL CONTINUE TO MONITOR.
--- NOTE | 2018-11-12 03:57 | NUR ---
PATIENT'S HR 38 NOTED, NOTIFIED TO , HE CAME TO CHECK THE PATIENT. NO NEW ORDER AT THIS TIME. WILL CONTINUE TO MONITOR.
--- NOTE | 2018-11-12 04:20 | NUR ---
DR. VERAS AT BEDSIDE TO CHECK THE PATIENT. WILL FOLLOW ORDER.
[2018-11-12] MEDS: SILDENAFIL 20 MG TAB NG SCH ×3 (05:03→20:33)
[2018-11-12] MEDS: CLINDAMYCIN 300 MG in DEXTROSE 5% 50 ML IV SCH ×4 (05:03→23:18)
[2018-11-12] MEDS: methylPREDNISolone SS 40 MG/ML VIAL IVP SCH ×4 (05:03→23:18)
[2018-11-12 05:12] LABS: MEAN CORPUSCULAR HGB CONC 30 g/dL (33-37); MONOCYTES # (AUTO) 0.3 K/uL (0.8-1.0)
--- NOTE | 2018-11-12 05:30 | NUR ---
ADMINISTERED SCHEDULED MEDICATIONS ORDERED. PATIENT TOLERATED WELL WITH TUBE FEEDING, NO RESIDUAL NOTED. TOLERATED WELL WITH VENT SETTING. NO ACUTE DISTRESS NOTED. STILL SB WITH HR 45 AT THIS TIME. PROVIDED MORNING CARE, TOLERATED WELL. WILL CONTINUE TO MONITOR.
[2018-11-12 05:41] LABS: ANION GAP 4.5 (8-16); CARBON DIOXIDE 33.7 mmol/L (21-32); CREATININE 0.8 mg/dL (0.6-1.3); POTASSIUM 4.2 mmol/L (3.5-5.1)
--- NOTE | 2018-11-12 06:25 | NUR ---
ok to decrease pts alarm on monitor; heart rate to [address] franz
[2018-11-12] MEDS: NACL 0.9% 1,000 ML IV SCH (06:43)
[2018-11-12 06:54] LABS: HEMATOCRIT 42.3 % (36-48); HEMOGLOBIN 12.8 g/dL (12.0-16.0); LYMPHOCYTES # (AUTO) 0.4 K/uL (2.5-16.5); LYMPHOCYTES % (AUTO) 5.8 % (20.5-51.1); MEAN CORPUSCULAR HEMOGLOBIN 26 pg (27-31); MEAN CORPUSCULAR VOLUME 83.9 fL (80-94); MONOCYTES % (AUTO) 4.6 % (1.7-9.3); NEUTROPHILS % (AUTO) 89.6 % (42.2-75.2); PLATELET COUNT (AUTO) 154 K/uL (140-450); RED BLOOD CELL COUNT(AUTO) 5.04 MIL/uL (4.20-5.40); RED CELL DISTRIBUTION WIDTH 16.9 % (11.6-13.7); WHITE BLOOD COUNT (AUTO) 6.7 K/uL (4.8-10.8)
[2018-11-12] MEDS: ALBUTEROL SULFATE/IPRATROPIU 3 ML SOL IH SCH ×3 (06:55→19:51)
[2018-11-12] MEDS: BLOOD GLUCOSE MONITORING 1 DEV DEV FS SCH ×4 (07:17→20:22)
[2018-11-12] MEDS: INSULIN LISPRO SLIDING SCALE 100 UNITS/ML VIAL SUBQ PRN ×4 (07:18→20:24)
--- NOTE | 2018-11-12 07:30 | NUR ---
RECEIVED PT FROM PM NURSE. PT STATED, ON VERSED 4 MG/HR. RASS -3. BEDSIDE MONITOR SHOWS SB 40S-55S. ETT TO VENT WITH SETTING 50%, TV 500, AC 16, PEEP 7. O2 SATS 90-95%. PT HAS CENTRAL LINE TO RIGHT IJ TLC RUNNING NS AT 70 MLS/HR . PT HAS NG TUBE FEEDING GLUCERNA 1.2 RUNNING AT 75 MLS/HR, H2O 100 Q4HRS. RESIDUAL CHECKED, PT TOLERATED WELL. PT HAS F/C IN PLACE WITH YELLOW URINE NOTED. SKIN DISCOLORATION NOTED TO LEFT LEG. INTACT, WARM AND DRY, WILL CONTINUE TO MONITOR.
--- NOTE | 2018-11-12 07:35 | NUR ---
RECIVED PT ON VENT WITH SETTINGS CHARTED BREATH SOUNDS PRESENT BILAT SXN PINK SECS DECREASED FIO2 TO .45 DECREASED PEEP TO 5 AMBU BAG AT BEDSIDE VENT PLUGGED INTO RED OUTLET WILL CONTINUE TO MONITOR PT
[2018-11-12] MEDS: LEVOTHYROXINE 200 MCG VIAL IV SCH (08:20)
[2018-11-12] MEDS: PANTOPRAZOLE 40 MG INJ VIAL IVP SCH (08:21)
[2018-11-12] MEDS: ENOXAPARIN 40 MG/0.4 ML SYR SUBQ SCH (08:21)
--- NOTE | 2018-11-12 08:30 | NUR ---
LUNG SOUND CLEAR, ORAL CARE GIVEN. ALMA ROSA CARE GIVEN.
[2018-11-12] MEDS ORDERED: LISINOPRIL 5 MG TAB NG SCH (09:00)
[2018-11-12] MEDS ORDERED: LISINOPRIL 10 MG TAB GT SCH (09:00)
--- NOTE | 2018-11-12 10:00 | NUR ---
PT AWAKE, TRIED TO PULL OUT TUBE, EXPLAINED TO PT SHE CAN NOT BREATH WELL IF SHE PULLS THE TUBES OUT. PT'S SON AT BEDSIDE.
[2018-11-12] MEDS ORDERED: FUROSEMIDE 40 MG/4 ML VIAL IVP SCH (10:06)
[2018-11-12] MEDS ORDERED: LACTOBACILLUS RHAMNOSUS GG 1 EACH CAP PO SCH (10:40)
[2018-11-12 11:13] LABS: FREE T4 (FREE THYROXINE) 1.47 ng/dL (0.76-1.46); THYROID STIMULATING HORMONE 0.38 uIU/mL (0.34-3.74)
--- NOTE | 2018-11-12 12:00 | NUR ---
PT SEDATED, RASS -3. SON AT BEDSIDE. NO S/S OF RESPIRATORY DISTRESS NOTED.
--- NOTE | 2018-11-12 14:06 | NUR ---
11/12/18 RD FOLLOW UP COMPLETED PLEASE REFER TO NUTRITION ASSESSMENT UNDER CARE ACTIVITY FOR ESTIMATED NUTRITIONAL NEEDS. 1.CONTINUE GLUCERNA @75 ML/HR WITH 100 ML FLUSH Q4H -THIS PROVIDES 1800 ML, 2160 KCAL, 108 GM OF PROTEIN WHICH MEETS 93% OF ESTIMATED KCAL NEEDS 100% OF ESTIMATED PROTEIN. 2. IF/WHEN PATIENT WEANS OFF OF VENT AND IS MEDICALLY STABLE CONSIDER ADVANCING PO DIET TO CCHO 60 GM WITH APPROPRIATE FOOD TEXTURE TOLERATED. 3. RD TO FOLLOW-UP 2-3 DAYS, HIGH RISK YAIR BOYD RD
--- NOTE | 2018-11-12 14:10 | NUR ---
NOTIFIED RT PT O2 SATS DECREASED TO 86-87%.
--- NOTE | 2018-11-12 15:29 | NUR ---
INTO SEE PT. WILL FOLLOW UP.
--- NOTE | 2018-11-12 17:00 | NUR ---
PT SEDATED, BP STABLE. NO S/S OF RESPIRATORY DISTRESS NOTED. MONITOR SHOWS HR SB.
--- NOTE | 2018-11-12 17:28 | NUR ---
continued to monitor pt on vent with settings as charted breath sounds present bilat coarse sxn pt with min amt pink secs vent plugged into red outlet ambu bag at bedside
--- NOTE | 2018-11-12 19:07 | NUR ---
DR. OWEN Hector AT BEDSIDE TO CHECK PT. WILL FOLLOW UP.
[2018-11-12] MEDS: MIDAZOLAM MDV 100 MG in NACL 0.9% 80 ML IV PRN (19:29)
--- NOTE | 2018-11-12 19:30 | NUR ---
PT AGITATED, TRYING TO PULL TUBES. VERSED NEW BAG STARTED, INCREASED RATE TO 5 MG/HR.
--- NOTE | 2018-11-12 19:30 | NUR ---
RECEIVED BEDSIDE REPORT FROM DAY SHIFT NURSE. PT IS SEDATED, ON VERSED DRIP, RASS -3. FLACC 0. SB ON MONITOR. PT IS ETT TO VENT W/ SETTINGS: AC 16, FIO2 35%, VT 500, PEEP 5. COARSE LUNGS SOUND NOTED BILATERALLY. BREATHING EVEN AND UNLABORED. NO SOB NOTED. CENTRAL LINE TO RIGHT IJ, TRIPLE LUMEN CATH PATENT AND INTACT, RUNNING VERSED DRIP AT 4 MG/HR. NGT IN PLACE TO LEFT NARES, RECEIVING TUBE FEEDING GLUCERNA AT 75 ML/HR, WATER FLUSH 100 ML Q4H. PLACEMENT CONFIRMED. 30 ML RESIDUALS NOTED. ABDOMEN ROUND, SOFT W/ ACTIVE BOWEL SOUNDS. BURTON CATH IN PLACE DRAINING URINE TO GRAVITY DRAINAGE BAG. SKIN IS INTACT, DRY AND WARM TO TOUCH. EDEMA NOTED TO BLE. HOB 30 DEGREES, BED IN LOWEST POSITION LOCKED. CALL LIGHT WITHIN REACH. NO SIGNS OF DISTRESS AT THIS TIME. WILL CONTINUE TO MONITOR.
--- NOTE | 2018-11-12 20:45 | NUR ---
MEDICATIONS ADMINISTERED ORDERED.
--- NOTE | 2018-11-12 21:00 | NUR ---
PT COUGHING, SUCTIONED MODERATE AMOUNT OF BLOOD TINGED SECRETIONS FROM NOSE AND MOUTH. SON AT BEDSIDE. VSS AND NO ACUTE DISTRESS NOTED AT THIS TIME.
--- NOTE | 2018-11-12 21:56 | NUR ---
GOOD CHEST RISE ENDOTRACHEAL SUCTION FOR MODERATE THICK YELLOW SECRETIONS AIRWAY PATENT
--- NOTE | 2018-11-12 22:12 | NUR ---
SATURATION 89%-90% ON FIO2 OF 35% REVIEWED ABG REPORT AT 1201 INCREASED FIO2 TO 40% LATESHA NOTIFIED Addendum: 11/12/18 at 2218 by Baldev Hirsch RT GOOD CHEST RISE AIRWAY PATENT
--- NOTE | 2018-11-12 23:30 | NUR ---
NO CHANGE IN CONDITION AT THIS TIME. PT IS ON VERSED DRIP, RASS -3. VSS. FLACC 0. SAFETY PRECAUTIONS IN PLACE.
[2018-11-13] VITALS (51 sets, daily range): BP systolic 110–169; BP diastolic 15–85
--- NOTE | 2018-11-13 00:03 | NUR ---
NO EVIDENCE OF RESPIRATORY DISTRESS NOTED GOOD CHEST RISE AIRWAY PATENT
--- NOTE | 2018-11-13 01:47 | NUR ---
NO SOB NOTED AT THIS TIME GOOD CHEST RISE AIRWAY PATENT
--- NOTE | 2018-11-13 02:14 | NUR ---
SB ON MONITOR, HR 52. NO S/SX OF ACUTE DISTRESS NOTED AT THIS TIME. FLACC 0. RASS -3, ON VERSED DRIP. WILL CONTINUE TO MONITOR.
--- NOTE | 2018-11-13 03:52 | NUR ---
ENDOTRACHEAL SUCTION FOR MODERATE THIN YELLOW SECRETIONS AIRWAY PATENT
--- NOTE | 2018-11-13 03:59 | NUR ---
VAP ORAL CARE GIVEN. SUCTIONED SECRETIONS FROM MOUTH AND NOSE. NO DISTRESS NOTED AT THIS TIME. VSS. AFEBRILE. WILL CONTINUE TO MONITOR.
[2018-11-13] MEDS: ALBUTEROL SULFATE/IPRATROPIU 3 ML SOL IH PRN (04:07)
[2018-11-13] MEDS: SILDENAFIL 20 MG TAB NG SCH ×3 (05:07→20:06)
[2018-11-13] MEDS: CLINDAMYCIN 300 MG in DEXTROSE 5% 50 ML IV SCH ×4 (05:07→23:04)
[2018-11-13] MEDS: methylPREDNISolone SS 40 MG/ML VIAL IVP SCH ×4 (05:07→23:03)
[2018-11-13 05:26] LABS: BASOPHILS % (AUTO) 0.1 % (0.0-2.0); HEMATOCRIT 42.6 % (36-48); HEMOGLOBIN 12.9 g/dL (12.0-16.0); LYMPHOCYTES # (AUTO) 0.3 K/uL (2.5-16.5); MEAN CORPUSCULAR HEMOGLOBIN 25 pg (27-31); MEAN CORPUSCULAR HGB CONC 30 g/dL (33-37); MEAN CORPUSCULAR VOLUME 83.6 fL (80-94); MONOCYTES # (AUTO) 0.2 K/uL (0.8-1.0); MONOCYTES % (AUTO) 4.4 % (1.7-9.3); NEUTROPHILS # (AUTO) 4.9 K/uL (1.8-7.7); PLATELET COUNT (AUTO) 139 K/uL (140-450); RED BLOOD CELL COUNT(AUTO) 5.09 MIL/uL (4.20-5.40); WHITE BLOOD COUNT (AUTO) 5.4 K/uL (4.8-10.8)
--- NOTE | 2018-11-13 05:34 | NUR ---
NO DISTRESS NOTED GOOS CHEST RISE ENDOTRACHEAL SUCTION FOR SMALL THIN YELLOW SECRETIONS AIRWAY PATENT TOLERATING VENTILATOR SUPPORT WELL WITHOUT INCIDENT
[2018-11-13 05:38] LABS: ANION GAP 3.5 (8-16); CARBON DIOXIDE 35.7 mmol/L (21-32); CREATININE 0.9 mg/dL (0.6-1.3); POTASSIUM 4.2 mmol/L (3.5-5.1)
[2018-11-13 05:41] LABS: PHOSPHORUS 3.4 mg/dL (2.5-4.9)
[2018-11-13 05:42] LABS: NEUTROPHILS % (AUTO) 89.5 % (42.2-75.2)
--- NOTE | 2018-11-13 05:45 | NUR ---
BED BATH GIVEN, LINENS CHANGED. POSITIONED FOR COMFORT AND OFF LOAD PRESSURE AREAS. NO ACUTE DISTRESS NOTED. RASS -3, ON VERSED DRIP. VSS, BUT BRADYCARDIA ON MONITOR W/ HR IN LOW 50'S. SAFETY PRECAUTIONS IN PLACE. WILL CONTINUE TO MONITOR.
[2018-11-13] MEDS: ALBUTEROL SULFATE/IPRATROPIU 3 ML SOL IH SCH ×3 (06:33→19:08)
--- NOTE | 2018-11-13 06:35 | NUR ---
RECEIVED PT ON CARESCAPE ON DOCUMENTED SETTINGS, ALARMS ARE ON AND AUDIBLE, PT ET TUBE SIZE 7.5 IS SECURE 21 CM ANCHOR FAST IN PLACE BS DIMINISHED, HHN GIVEN I\L WITH 3 MG DUONEB PT IN HF ASLEEP BMV HOB VENT PLUGGED INTO RED OUTLET SX SMALL YELLOW SECRETIONS
[2018-11-13] MEDS: BLOOD GLUCOSE MONITORING 1 DEV DEV FS SCH ×4 (07:20→20:07)
[2018-11-13] MEDS: INSULIN LISPRO SLIDING SCALE 100 UNITS/ML VIAL SUBQ PRN ×3 (07:21→20:07)
--- NOTE | 2018-11-13 07:28 | NUR ---
REPORT GIVEN TO DAY SHIFT RN FOR CONTINUITY OF CARE. PT IS IN STABLE CONDITION.
--- NOTE | 2018-11-13 07:29 | NUR ---
RECEIVED REPORT FROM EVENTS MANAGER RN
--- NOTE | 2018-11-13 07:30 | NUR ---
ENTERAL FEEDING TURNED OFF FOR CPAP, VERSED DRIP DECREASED FORM 5 MGS/HR. TO 3 MGS./HR. PATIENT IS ALREADY AWAKE ON VERSED, OBEYING COMMANDS, AGITATED AND WANTS TO PULL OUT TUBE. PATIENT BEING FREQUENTLY REORIENTED
--- NOTE | 2018-11-13 07:55 | NUR ---
TOTALLY OFF VERSED. PATIENT AWAKE, OPENS EYES SPONTANEOUSLY, OBEYS COMMANDS BUT AGITATED. RE ORIENTED PATIENT.
[2018-11-13] MEDS: metFORMIN 500 MG TAB NG SCH ×2 (08:00→17:00)
--- NOTE | 2018-11-13 08:00 | NUR ---
PATIENT AWAKE WITH SPONTANEOUS EYE OPENING, ABLE TO OBEY COMMANDS, AGITATED-ALWAYS MOVING HEAD. WITH ENDOTRACHEAL TUBE TO VENTILATOR AC 16 FIO2 40% PEEP 5 TIDAL VOLUME 500, CLEAR BREATH SOUNDS ON ALL GODINEZ, SINUS RHYTHM IN THE MONITOR, WITH NG TUBE RIGHT NARES AND PATENT ON AUSCULTATION-ZERO RESIDUALS, SOFT ABDOMEN, WITH BURTON CATHETER DRAINING CLEAR YELLOW URINE, WITH TRIPLE LUMEN CENTRAL LINE AT RIGHT INTERNAL JUGULAR-SITE ASYMPTOMATIC, SKIN INTACT, DISCOLORATION ON BOTH LEGS
--- NOTE | 2018-11-13 08:04 | NUR ---
PLACED PT ON CPAP 5 PS 10 FIO2 40 PT QUICKLY DESATED TO 80 RETURNED TO PREVIOUS SETTINGS PT AWAKE IN HF
--- NOTE | 2018-11-13 08:30 | NUR ---
DR. PETERS HERE WITH DR. WYNN AT BEDSIDE. INFORMED RN STOPPED PATIENT'S FEEDING, HELD GLUCOPHAGE, OFF SEDATION AND RT ATTEMPTED CPAP AND PATIENT DESATURATED. PER DR. PETERS OK TO HOLD FEEDING AND METFORMIN PLAN TO TRY ANOTHER CPAP LATER. DR. PETERS MADE AWARE TODAY'S PLATELET 130s, PER DR. PETERS OK TO GIVE LOVENOX
--- NOTE | 2018-11-13 08:55 | NUR ---
OFF VERSED. PATIENT AWAKE, OPENS EYES SPONTANEOUSLY, OBEYS COMMANDS BUT AGITATED
[2018-11-13] MEDS ORDERED: INTERDRY CLOTH TP SCH (09:00)
[2018-11-13] MEDS: LEVOTHYROXINE 200 MCG VIAL IV SCH (09:00)
[2018-11-13] MEDS ORDERED: LEVOTHYROXINE 100 MCG VIAL IV SCH (09:00)
[2018-11-13] MEDS: LISINOPRIL 10 MG TAB GT SCH (09:31)
[2018-11-13] MEDS: LACTOBACILLUS RHAMNOSUS GG 1 EACH CAP PO SCH (09:32)
[2018-11-13] MEDS: PANTOPRAZOLE 40 MG INJ VIAL IVP SCH (09:32)
[2018-11-13] MEDS: MORPHINE SULFATE 2 MG/ML SYR IVP PRN (09:33)
[2018-11-13] MEDS: ENOXAPARIN 40 MG/0.4 ML SYR SUBQ SCH (09:33)
--- NOTE | 2018-11-13 11:40 | NUR ---
PTS CURRENT RSBI IS 149 RETURNED TO PREVIOUS SETTINGS
--- NOTE | 2018-11-13 12:15 | NUR ---
RESIDENT DR. WYNN HERE AND ACCORDING TO HER OK TO CONTINUE NPO UNTIL PATIENT SEEN BY CHAVO ROCHA TO GIVE PRN ATIVAN AND SHE IS ALSO MADE AWARE OF PATIENT'S BLOOD PRESSURE TREND AND INSULIN ON HOLD FOR BLOOD SUGAR 154
[2018-11-13] MEDS: LORazepam 2 MG/ML VIAL IM/IVP PRN ×2 (12:50→20:44)
--- NOTE | 2018-11-13 13:16 | NUR ---
DECREASED FIO2 TO .35
[2018-11-13] MEDS: DEXT 5% /NACL 0.9% 1,000 ML IV SCH (14:40)
--- NOTE | 2018-11-13 16:08 | NUR ---
PER DR. TIANNA TONY TO RESUME ENTERAL FEEDING. HOLD VERSED FOR NOW.
--- NOTE | 2018-11-13 16:20 | NUR ---
DR. WEAVER, DR. TORO AT BEDSIDE Addendum: 11/13/18 at 1638 by Brynn Rowan RN 1620 HOURS- DR. WEAVER AWARE OF PATIENT'S EPISODES OF BRADYCARDIA UP TO HIGH 30s, SBP HIGH SIDE 140-160s. CONTINUE TO MONITOR PER DR. WEAVER
--- NOTE | 2018-11-13 16:29 | NUR ---
PLACED PT ON CPAP 5 PS [address] TORO BEDSIDE
--- NOTE | 2018-11-13 16:45 | NUR ---
RETURNED PT OT A/C NO FURTHER WEANING TODAY PT DESATS
[2018-11-13] MEDS: MIDAZOLAM MDV 100 MG in NACL 0.9% 80 ML IV PRN (16:59)
--- NOTE | 2018-11-13 16:59 | NUR ---
PUT PATIENT BACK ON VERSED ORDERED BY DR. TORO, STARTED 1 MG/HR PATIENT FAILED CPAP TRIAL, DESATURATED IN THE MID 80s%,
--- NOTE | 2018-11-13 17:00 | NUR ---
GLUCERNA FEEDING RESTARTED. PER MUNA BECERRIL. ZERO RESIDUALS, PATENT ON AUSCULTATION
--- NOTE | 2018-11-13 17:40 | NUR ---
PM CARE, SPONGE BATH, ORAL CARE DONE, CATHETER CARE DONE, SKIN INTACT, PATIENT TOLERATED
--- NOTE | 2018-11-13 19:13 | NUR ---
REPORT GIVEN TO NIGHT RN
--- NOTE | 2018-11-13 19:30 | NUR ---
RECEIVED REPORT FROM DAY SHIFT RN FOR CONTINUITY OF CARE. PT IS ON VERSED DRIP, RASS -2. NO C/O PAIN. AFEBRILE. SB ON MONITOR. ETT TO VENT W/ SETTINGS: AC 16, FIO2 35%, VT 500, PEEP 5. LUNGS SOUND CLEAR BILATERALLY. NO SOB. BREATHING EVEN, UNLABORED. ABDOMEN ROUND, SOFT, NONTENDER, ACTIVE BOWEL SOUNDS X [address] TO LEFT NARES, PLACEMENT CONFIRMED VIA AUSCULTATION. PT IS RECEIVING TUBE FEEDING GLUCERNA 1.2 AT 75 ML/HR, WATER FLUSH 100 ML Q4H. 100 ML RESIDUALS NOTED, TF RESUMED ORDERED. CENTRAL LINE RIJ TLC PATENT AND INTACT, RUNNING VERSED DRIP AT 1 MG/HR. BURTON CATH IN PLACE DRAINING YELLOW URINE WITH SEDIMENTS. SKIN IS INTACT, DRY AND WARM TO TOUCH. EDEMA NOTED TO BLE, CELLULITIS TO LEFT LOWER LEG. HOB 30 DEGREES, BED IN LOWEST POSITION AND CALL LIGHT WITHIN REACH. PT NOT IN ANY DISTRESS AT THIS TIME. WILL CONTINUE TO MONITOR.
--- NOTE | 2018-11-13 19:53 | NUR ---
RECEIVED PATIENT ON DOCUMENTED SETTINGS. OBTAINED ABG AND REPORTED TO DISCUSSED ATTEMPTING WEANING IN THE AM. 7.[address] AT 22 CM WITH ANCHORFAST.. REPOSITIONED ETT TO LEFT OF MOUTH. TX GIVEN WITH NO ADVERSE EFFECTS. VITALS STABLE. BREATH SOUNDS CLEAR. SUCTIONED SMALL AMOUNT OF THIN YELLOW SECRETIONS. ALARMS ON AND AUDIBLE. AMBU BAG AT BEDSIDE. VENT PLUGGED INTO RED OUTLET. PATIENT REPORTED NO SOB OR DISTRESS WHEN ASKED. NO BREAKDOWN OR REDNESS NOTED.
--- NOTE | 2018-11-13 20:30 | NUR ---
MEDICATIONS ADMINISTERED ORDERED. PT TOLERATED WELL.
--- NOTE | 2018-11-13 20:44 | NUR ---
PT AGITATED AND TOUCHING TUBES. ORALLY AND DEEP SUCTIONED, SCANT AMOUNT OF THIN WHITE SECRETION NOTED AT THIS TIME. ATIVAN ADMINISTERED ORDERED.
--- NOTE | 2018-11-13 21:59 | NUR ---
PT'S NEPHEW AND NIECE AT BEDSIDE, SPEAKING IN ITALIAN. PT ABLE TO ANSWER BY NODDING AND SHAKING HEAD. NO SIGNS OF DISTRESS NOTED. SAFETY PRECAUTIONS IN PLACE. WILL CONTINUE TO MONITOR.
--- NOTE | 2018-11-13 22:40 | NUR ---
PT'S SONS AT BEDSIDE. PT AGITATED AND COUGHING. SUCTIONED PT. REPOSITIONED FOR COMFORT. NO DISTRESS NOTED AT THIS TIME.
[2018-11-14] VITALS (45 sets, daily range): BP systolic 92–159; BP diastolic 48–78
--- NOTE | 2018-11-14 00:08 | NUR ---
VAP ORAL CARE PROVIDED. TOLERATED WELL.
--- NOTE | 2018-11-14 01:08 | NUR ---
REDUCED FIO2 FROM 35% TO 30%. PATIENT'S SAO2 AT 94%. FIFTEEN MINUTES LATER, PATIENT'S SATURATION AT 93%. ALL OTHER VITALS STABLE. WILL CONTINUE TO MONITOR.
--- NOTE | 2018-11-14 02:02 | NUR ---
PT STILL ON VERSED DRIP AT 2 MG/HR, RASS -2. VSS. NO S/SX OF ACUTE DISTRESS. WILL CONTINUE TO MONITOR.
[2018-11-14] MEDS: LORazepam 2 MG/ML VIAL IM/IVP PRN ×2 (03:07→19:16)
--- NOTE | 2018-11-14 03:18 | NUR ---
PATIENT'S SAO2 AT 91% AFTER 15 MINUTES ON 28% FIO2. OTHER VITALS STABLE. WILL CONTINUE TO MONITOR.
--- NOTE | 2018-11-14 03:38 | NUR ---
PT COUGHING, SUCTIONED SCANT AMOUNT OF THIN WHITE SECRETIONS. O2 SAT 93%. VAP ORAL CARE GIVEN. VITAL SIGNS STABLE.
[2018-11-14] MEDS: SILDENAFIL 20 MG TAB NG SCH ×3 (05:01→21:00)
[2018-11-14] MEDS: methylPREDNISolone SS 40 MG/ML VIAL IVP SCH ×4 (05:02→23:23)
[2018-11-14] MEDS: CLINDAMYCIN 300 MG in DEXTROSE 5% 50 ML IV SCH ×4 (05:02→23:24)
[2018-11-14 05:22] LABS: BASOPHILS % (AUTO) 0.2 % (0.0-2.0); EOSINOPHILS % (AUTO) 0.1 % (0.0-4.0); HEMATOCRIT 40.7 % (36-48); HEMOGLOBIN 12.4 g/dL (12.0-16.0); LYMPHOCYTES # (AUTO) 0.4 K/uL (2.5-16.5); LYMPHOCYTES % (AUTO) 8.4 % (20.5-51.1); MEAN CORPUSCULAR HEMOGLOBIN 25 pg (27-31); MEAN CORPUSCULAR HGB CONC 30 g/dL (33-37); MEAN CORPUSCULAR VOLUME 83.5 fL (80-94); MONOCYTES # (AUTO) 0.2 K/uL (0.8-1.0); MONOCYTES % (AUTO) 5.5 % (1.7-9.3); NEUTROPHILS # (AUTO) 3.9 K/uL (1.8-7.7); PLATELET COUNT (AUTO) 123 K/uL (140-450); RED BLOOD CELL COUNT(AUTO) 4.88 MIL/uL (4.20-5.40); RED CELL DISTRIBUTION WIDTH 16.7 % (11.6-13.7); WHITE BLOOD COUNT (AUTO) 4.5 K/uL (4.8-10.8)
--- NOTE | 2018-11-14 05:22 | NUR ---
AM CARE, BED BATH, CATHETER CARE GIVEN. LINENS CHANGED. OFF LOADED PRESSURE AREAS. REPOSITIONED FOR COMFORT. VITAL SIGNS STABLE AT THIS TIME. SAFETY PRECAUTIONS IN PLACE.
[2018-11-14 05:40] LABS: ANION GAP 5.9 (8-16); CARBON DIOXIDE 35.6 mmol/L (21-32); CREATININE 0.8 mg/dL (0.6-1.3); POTASSIUM 4.5 mmol/L (3.5-5.1)
[2018-11-14 05:55] LABS: NEUTROPHILS % (AUTO) 85.8 % (42.2-75.2)
--- NOTE | 2018-11-14 06:00 | NUR ---
PT'S SPO2 88% ON FIO2 40%. RT MAINOR MADE AWARE. PER RT, PT'S [employer] SPO2 IS 88-90% AND TO NOTIFY IF O2 SAT DROPS BELOW 88%. WILL CONTINUE TO MONITOR.
[2018-11-14] MEDS: ALBUTEROL SULFATE/IPRATROPIU 3 ML SOL IH SCH ×3 (06:28→19:10)
--- NOTE | 2018-11-14 06:28 | NUR ---
REC'D PT ON CARESCAPE VENT SETTINGS AC16 VT 500 PEEP 5 FIO2 28% ALARMS ON AND AUDIBLE AND AMBU BAG IS AT HOB, I\L TX GIVEN WITH DUONEB 3ML WITH NO ADVERSE REACTION POST TX, B\S ARE CLEAR BILATERALLY, SXN PT SMALL AMT OF THIN YELLOW SECRETIONS, PT IS ORALLY INTUBATED WITH 7.5 ET TUBE SECURED WITH ANCHOR FAST AT 21 CM@LIP AND SKIN INTEGRITY IS INTACT. PT IS SLEEPING WITH NO SIGNS OF DISTRESS NOTED AT THIS TIME
--- NOTE | 2018-11-14 06:37 | NUR ---
VERSED DRIP HELD AT THIS TIME PRIOR TO WEANING TRIAL.
[2018-11-14] MEDS: BLOOD GLUCOSE MONITORING 1 DEV DEV FS SCH ×4 (06:43→21:08)
[2018-11-14] MEDS: INSULIN LISPRO SLIDING SCALE 100 UNITS/ML VIAL SUBQ PRN ×2 (06:44→17:04)
--- NOTE | 2018-11-14 06:50 | NUR ---
ENTERAL FEEDING TURNED OFF FOR CPAP TRIAL.
--- NOTE | 2018-11-14 07:09 | NUR ---
BEDSIDE REPORT GIVEN TO DAY SHIFT RN FOR CONTINUITY OF CARE. PT IS IN STABLE CONDITION.
--- NOTE | 2018-11-14 07:12 | NUR ---
RECEIVED PT FROM PM NURSE, PT SLEEPY BUT AROUSABLE.ABLE TO FOLLOW SIMPLE COMMANDS. BEDSIDE MONITOR SHOWS [id number]. ETT TO VENT WITH SETTING FIO2=28%, TV 500, AC 16, PEEP 5. NO S/S OF RESPIRATORY DISTRESS NOTED. TUBE FEEDING AND VERSED HOLD PER PM NURSE. PT HAS CENTRAL LINE TO RIGHT IJ TLC RUNNING D5 NS AT 20 MLS/HR. PT HAS F/C IN PLACE . CELLULITIS TO LEFT LEG NOTED. PT HAS EDEMA TO BOTH LOWER EXTREMITIES, CALL LIGHT IN REACH, POC EXPLAINED TO PT, WILL CONTINUE TO MONITOR.
[2018-11-14] MEDS: metFORMIN 500 MG TAB NG SCH ×2 (07:59→16:44)
[2018-11-14] MEDS: LEVOTHYROXINE 200 MCG VIAL IV SCH (08:01)
[2018-11-14] MEDS: PANTOPRAZOLE 40 MG INJ VIAL IVP SCH (08:02)
[2018-11-14] MEDS: amLODIPine 5 MG TAB NG SCH (08:02)
[2018-11-14] MEDS: LISINOPRIL 10 MG TAB GT SCH (08:02)
[2018-11-14] MEDS: LACTOBACILLUS RHAMNOSUS GG 1 EACH CAP PO SCH (08:10)
[2018-11-14] MEDS: ENOXAPARIN 40 MG/0.4 ML SYR SUBQ SCH (08:11)
--- NOTE | 2018-11-14 08:41 | NUR ---
11/14/18 RD FOLLOW UP COMPLETED PLEASE REFER TO NUTRITION PROGRESS NOTE UNDER CARE ACTIVITY FOR ESTIMATED NUTRITION NEEDS. RD RECOMMENDATIONS: 1. CONTINUE GLUCERNA @75 ML/HR WITH 100 ML FLUSH Q4H -THIS PROVIDES 1800 ML, 2160 KCAL, 108 GM OF PROTEIN WHICH MEETS 93% OF ESTIMATED KCAL NEEDS 100% OF ESTIMATED PROTEIN. 2. IF/WHEN PATIENT EXTUBATED AND IS MEDICALLY STABLE CONSIDER SWALLOW EVAL FOR APPROPRIATE DIET TEXTURES, AND CONSIDER ADVANCING PO DIET TO CCHO 60 GM WITH APPROPRIATE FOOD TEXTURE PER NAIL SETTER TOLERATED. 3. RD TO FOLLOW-UP 2-3 DAYS, HIGH RISK. KWAN LAZAR, MS, RDN
--- NOTE | 2018-11-14 08:59 | NUR ---
vent check, sxn pt both orally and et tube small amt of yellow secretions, changed vent settings to cpap 5 ps 10 pt was agitated with family at bedside o2 sat decreased to 85% and vt to 190 and rr increased to 36, pt was changed back to ac mode and rn michaela notified. will try later to wean again
--- NOTE | 2018-11-14 09:00 | NUR ---
ORAL CARE, ALMA ROSA CARE GIVEN. DUE MEDS GIVEN, PT TOLERATED WELL. FAMILY AT BEDSIDE.
--- NOTE | 2018-11-14 10:43 | NUR ---
PT PLACED ON CPAP5 PS 10 FOR 10MINUTES VT 190 AND RR [address] O2 SAT 85% DR. LEVIN AT BEDSIDE TO WITNESS CPAP TRIAL THEN AT 1052 PT PLACED BACK ON AC MODE
--- NOTE | 2018-11-14 11:15 | NUR ---
PT AWAKE, ALERT. ABLE TO FOLLOW COMMANDS. BEDSIDE MONITOR SHOWS SB. NO S/S OF RESPIRATORY DISTRESS NOTED.
[2018-11-14] MEDS: DEXT 5% /NACL 0.9% 1,000 ML IV SCH (13:21)
--- NOTE | 2018-11-14 15:20 | NUR ---
DR. DIOR IN TO SEE PT, WILL FOLLOW UP.
--- NOTE | 2018-11-14 15:48 | NUR ---
RESTARTED TUBE FEEDING DUE TO UNABLE TO EXTUBATE PT TODAY, PLACEMENT CHECKED. CHARGE NURSE MADE AWARE.
[2018-11-14] MEDS: MIDAZOLAM MDV 50 MG in NACL 0.9% 40 ML IV PRN (16:08)
--- NOTE | 2018-11-14 19:20 | NUR ---
RECEIVED BEDSIDE REPORT FROM MORNING NURSE. PATIENT AWAKE WITH VERSED DRIP, ABLE TO EXPRESS HER NEEDS. NO FEVER. PATIENT SHOWED AGITATION, ADMINISTERED PRN ATIVAN AT THIS TIME. BILATERAL LUNGS SOUND RHONCHI NOTED. NGT TO FEEDING GLUCERNA 1.2 75ML, H2O FLUSH 100ML Q4 NOTED. PLACEMENT CHECKED, RESIDUAL 50CC NOTED. CENTRAL LINE TO RIGHT IJ TRIPLE LUMENS RUNNING WITH VERSED 4MG/HR, D5NS 20ML/HR NOTED, INTACT AND PATENT. F/C IN PLACE WITH CLOUDY YELLOW URINE NOTED. BILATERAL LEG SWELLING WITH DISCOLORATION NOTED. HOB ELEVATED 30DEGREE, BED IN LOW POSITION. CALL LIGHT WITHIN REACH. WILL CONTINUE TO MONITOR. Addendum: 11/14/18 at 2330 by Julia Mercado RN PATIENT ETT TO VENT WITH SETTING AC MODE FIO2 28%, VT 500, RATE 16, PEEP 5.
--- NOTE | 2018-11-14 19:33 | NUR ---
RCV'D PT ON MECHANICAL VENTILATION WITH CHARTED SETTINGS. PT IS AWAKE AND ALERT. LOOKS UNCOMFORTABLE. RN AWARE AND GAVE MEDS TO MAKE PT MORE COMFORTABLE. HHN TX GIVEN WITH NO ADVERSE REACTION. SXN'D PT. PT ALSO HAS NEAL IN HER HAND FOR ORAL SUCTIONING. CLEAR BREATH SOUNDS. CUFF PRESSURE 32 CMH2O. VENT IS CONNECTED TO RED OUTLET. ALARMS AUDIBLE. AMBU BAG AT BEDSIDE. NO SOB OR DISTRESS NOTED. WILL CONTINUE TO MONITOR.
--- NOTE | 2018-11-14 20:30 | NUR ---
AT BEDSIDE TO CHECK THE PATIENT, WILL FOLLOW ORDER.
[2018-11-14] MEDS: MORPHINE SULFATE 2 MG/ML SYR IVP PRN (21:08)
--- NOTE | 2018-11-14 21:10 | NUR ---
ADMINISTERED PRN MORPHINE DUE TO PATIENT COMPLAINT ABOUT STOMACH PAIN. BS CHECKED 146 NOTED. WILL CONTINUE TO MONITOR.
--- NOTE | 2018-11-14 21:17 | NUR ---
VENT CHECK. PT ASLEEP COMFORTABLY. NO SON OR DISTRESS NOTED. WILL CONTINUE TO MONITOR.
--- NOTE | 2018-11-14 21:40 | NUR ---
REQUEST SILDENAFIL TAB TO FORESTRY CONTRACTOR BECAUSE NO MORE SILDENAFIL TAB IN ICU PYXIS BUT NO MORE SILDENAFIL IN TELE. NOTIFIED TO ABOUT MEDICATION NOT AVAILABLE AT THIS TIME.
--- NOTE | 2018-11-14 23:25 | NUR ---
ADMINISTERED SCHEDULED MEDICATIONS ORDERED. TOLERATED WELL. TOLERATED WELL WITH VENT SETTING, NO ACUTE DISTRESS NOTED. PATIENT WITH VERSED DRIP, RASS -3 AT THIS TIME. WILL CONTINUE TO MONITOR.
[2018-11-15] VITALS (38 sets, daily range): BP systolic 97–168; BP diastolic 38–99
--- NOTE | 2018-11-15 01:03 | NUR ---
PT ASLEEP COMFORTABLY. NO SOB OR DISTRESS NOTED. CLEAR BREATH SOUNDS. WILL CONTINUE TO MONITOR.
--- NOTE | 2018-11-15 01:20 | NUR ---
NO ACUTE DISTRESS NOTED. FLACC 0. RASS -3 WITH VERSED DRIP 2MG/HR. WILL CONTINUE TO MONITOR.
[2018-11-15] MEDS: LORazepam 2 MG/ML VIAL IM/IVP PRN ×2 (02:45→14:26)
--- NOTE | 2018-11-15 03:20 | NUR ---
PATIENT SEDATED WITH VERSED DRIP RASS -3 NOTED. TOLERATED WELL WITH VENT AT THIS TIME, NO ACUTE RESPIRATORY DISTRESS NOTED. WILL CONTINUE TO MONITOR.
[2018-11-15] MEDS: SILDENAFIL 20 MG TAB NG SCH ×3 (05:00→20:37)
[2018-11-15] MEDS: methylPREDNISolone SS 40 MG/ML VIAL IVP SCH ×2 (05:34→09:10)
[2018-11-15] MEDS: CLINDAMYCIN 300 MG in DEXTROSE 5% 50 ML IV SCH ×4 (05:35→23:11)
[2018-11-15 05:36] LABS: ANION GAP 5.6 (8-16); CREATININE 0.8 mg/dL (0.6-1.3); POTASSIUM 4.6 mmol/L (3.5-5.1)
--- NOTE | 2018-11-15 05:40 | NUR ---
ADMINISTERED SCHEDULED MEDICATIONS ORDERED. NO ACUTE RESPI DISTRESS NOTED. WILL CONTINUE TO MONITOR.
[2018-11-15] MEDS: ALBUTEROL SULFATE/IPRATROPIU 3 ML SOL IH SCH ×3 (06:33→18:45)
--- NOTE | 2018-11-15 06:33 | NUR ---
RECEIVED PT ON CARESCAPE ON DOCUMENTED SETTINGS,ALARMS ARE ON AND AUDIBLE, PTS ET TUBE SIZE 7.5 IS SECURE 21 CM ANCHOR FAST IN PLACE PT IN HF AWAKE, BS DIMINISHED SX SMALL CLEAR SECRETIONS PT HAS NEAL IN HAND, HHN GIVNE I\L WITH 3 MG DUONEB VENT PLUGGED INTO RED OUTLET BMV HOB
[2018-11-15 07:12] LABS: BASOPHILS % (AUTO) 0.1 % (0.0-2.0); HEMATOCRIT 46.8 % (36-48); HEMOGLOBIN 13.9 g/dL (12.0-16.0); LYMPHOCYTES # (AUTO) 0.6 K/uL (2.5-16.5); LYMPHOCYTES % (AUTO) 12.1 % (20.5-51.1); MEAN CORPUSCULAR HEMOGLOBIN 25 pg (27-31); MEAN CORPUSCULAR HGB CONC 30 g/dL (33-37); MEAN CORPUSCULAR VOLUME 84.1 fL (80-94); MONOCYTES # (AUTO) 0.2 K/uL (0.8-1.0); MONOCYTES % (AUTO) 3.4 % (1.7-9.3); NEUTROPHILS % (AUTO) 84.4 % (42.2-75.2); PLATELET COUNT (AUTO) 122 K/uL (140-450); RED BLOOD CELL COUNT(AUTO) 5.57 MIL/uL (4.20-5.40); WHITE BLOOD COUNT (AUTO) 4.7 K/uL (4.8-10.8)
--- NOTE | 2018-11-15 07:30 | NUR ---
BEDSIDE REPORT GIVEN TO MORNING RN.
--- NOTE | 2018-11-15 07:30 | NUR ---
RECEIVED REPORT FROM PODIATRY ASSISTANT RN. PT ALERT, AWAKE CO-OPERATIVE. INFUSING VERSED DRIP AT 2 MG/HR AND D5%NS AT 20 ML/HR ON RIJ. INTACT RIJ LINE. FLUSHED. ON ETT TO VENT AC 16 TV 500 FIO2 28%, PEEP 5. LUNGS CLEAR. ABDOMEN SOFT ROUND AND NON-TENDER. ACTIVE BOWEL SOUND. ON BURTON CATH DRAINING BRTIANY COLORED URINE. LEFT LOWER LEG CELLULITIS. RIGHT LOWER LEG HEALED WOUND/SCAR. EDEMATOUS BLE/BUE: PITTING EDEMA. EXTREMITIES ELEVATED. HOB ELEVATED. BED IN LOW POSITION LOCKED. WILL CONTINUE TO MONITOR.
[2018-11-15] MEDS: MIDAZOLAM MDV 50 MG in NACL 0.9% 40 ML IV PRN (07:31)
[2018-11-15] MEDS: INSULIN LISPRO SLIDING SCALE 100 UNITS/ML VIAL SUBQ PRN ×2 (07:40→11:27)
[2018-11-15] MEDS: BLOOD GLUCOSE MONITORING 1 DEV DEV FS SCH ×4 (07:41→20:43)
--- NOTE | 2018-11-15 08:20 | NUR ---
INCREASE PEEP TO [address] CORTEZ
[2018-11-15] MEDS: metFORMIN 500 MG TAB NG SCH ×2 (08:23→20:44)
[2018-11-15] MEDS: LISINOPRIL 10 MG TAB GT SCH (08:23)
[2018-11-15] MEDS: LACTOBACILLUS RHAMNOSUS GG 1 EACH CAP PO SCH (08:24)
[2018-11-15] MEDS: amLODIPine 5 MG TAB NG SCH (08:24)
[2018-11-15] MEDS: PANTOPRAZOLE 40 MG INJ VIAL IVP SCH (08:24)
[2018-11-15] MEDS: LEVOTHYROXINE 200 MCG VIAL IV SCH (08:25)
[2018-11-15] MEDS: ENOXAPARIN 40 MG/0.4 ML SYR SUBQ SCH (08:25)
--- NOTE | 2018-11-15 08:52 | NUR ---
PLACED PT ON CPAP 6 PS 10 FIO2 .28
--- NOTE | 2018-11-15 08:55 | NUR ---
PT ON CPAP TRIAL. SPO2 91% AT THIS TIME. RT AT BEDSIDE. PT ON CONTINUOUS MONITORING.
--- NOTE | 2018-11-15 08:57 | NUR ---
BP 164/99. PT WAS GIVEN SCHEDULED ANTIHYPERTENSIVE MEDS.
--- NOTE | 2018-11-15 09:50 | NUR ---
PT C\O SHE CANNOT BREATHE RETURNED TO A/C INCREASED PEEP TO [address] CORTEZ
--- NOTE | 2018-11-15 09:50 | NUR ---
SATURATION DROPPED TO 83%. PT C/O DIFFICULTY BREATHING. RT NOTIFIED. BACK TO AC MODE.
[2018-11-15] MEDS ORDERED: LISINOPRIL 20 MG TAB PO SCH (11:00)
[2018-11-15] MEDS: MORPHINE SULFATE 2 MG/ML SYR IVP PRN (11:12)
--- NOTE | 2018-11-15 11:13 | NUR ---
PT C/O UNCOMFORTABLE WHEN PUT ON LEFT SIDE. PUT HER ON BACK PER PT REQUEST.
--- NOTE | 2018-11-15 11:31 | NUR ---
ALERT AND CALM. CONTINUE ON VERSED DRIP AT 3 MG/ML. NO SOB OR ACUTE DISTRESS NOTED.
[2018-11-15] MEDS: DEXT 5% /NACL 0.9% 1,000 ML IV SCH (13:07)
--- NOTE | 2018-11-15 13:18 | NUR ---
NG-TUBE IN PLACE. POSITIVE PLACEMENT. RESIDUAL 20 ML. CONTINUE ON FEEDING GLUCERNA 1.2. ADMINISTERED SCHEDULED MEDS. TOLERATING WELL. WILL CONTINUE TO MONITOR.
--- NOTE | 2018-11-15 14:31 | NUR ---
Pt. appeared to be agitated. Ativan administered as per order.
--- NOTE | 2018-11-15 15:31 | NUR ---
NO SOB OR RESPIRATORY DISTRESS NOTED. SB ON MONITOR. CONTINUE ON VERSED DRIP AT 4 MG/HR. D5%NS INFUSING AT 20 ML/HR. CENTRAL LINE SITE INTACT. CONTINUE ON NG TUBE FEEDING. HOB ELEVATED.
--- NOTE | 2018-11-15 19:20 | NUR ---
RECEIVED BEDSIDE REPORT FROM MORNING NURSE. PATIENT AAO X2, AWAKE. ETT TO VENT WITH SETTING AC MODE RATE 16, FIO2 28%, VT 500, PEEP 7. TOLERATED WELL WITH VENT. NO ACUTE DISTRESS NOTED. BILATERAL LUNGS SOUND CLEAR NOTED. INTERMITTENT PRODUCTIVE COUGH NOTED WITH SMALL AMOUNT WHITE SECRETION. NGT TO LEFT NARES TO FEEDING WITH GLUCERNA 1.2 75ML/HR WITH H2O FLUSH 100ML Q4HR. PLACEMENT CHECKED, 30CC RESIDUAL NOTED. ACTIVE BOWEL FROM ALL [address]URTON [address] IN PL[address] WITH CLEAR YELLOW URINE NOTED. BILATERAL LOWER EX'S DISCOLORATIONS NOTED. SKIN IS WARM TO TOUCH AND INTACT. HOB ELEVATED 30 DEGREE, BED IN LOW POSITION, CALL LIGHT WITHIN REACH. WILL CONTINUE TO MONITOR. Addendum: 11/16/18 at 0334 by Julia Mercado RN CENTRAL LINE TO RIGHT IJ WITH VERSED DRIP 4MG/HR, D5NS 20ML/HR NOTED.
--- NOTE | 2018-11-15 19:50 | NUR ---
ADMINISTERED PRN ATIVAN AT THIS TIME DUE TO AGITATION. PATIENT DENIES PAIN. WILL CONTINUE TO MONITOR.
[2018-11-15] MEDS: LISINOPRIL 20 MG TAB GT SCH (20:37)
--- NOTE | 2018-11-15 20:50 | NUR ---
ADMINISTERED SCHEDULED MEDICATIONS ORDERED. BS CHECKED 140 NOTED. NO COVERAGE NEEDED. NO ACUTE DISTRESS NOTED. WILL CONTINUE TO MONITOR.
--- NOTE | 2018-11-15 23:40 | NUR ---
ADMINISTERED IV ABX ORDERED. PATIENT TOLERATED WELL WITH TUBE FEEDING AND VENT SETTING. ON SLEEP AT THIS TIME, AROUSABLE TO VOICE. WILL CONTINUE TO MONITOR.
[2018-11-16] VITALS (26 sets, daily range): BP systolic 111–148; BP diastolic 54–82
[2018-11-16] MEDS: MIDAZOLAM MDV 50 MG in NACL 0.9% 40 ML IV PRN (00:41)
--- NOTE | 2018-11-16 01:10 | NUR ---
PT ASLEEP COMFORTABLY. NO SOB OR DISTRESS NOTED. WILL CONTINUE TO MONITOR.
--- NOTE | 2018-11-16 02:00 | NUR ---
PATIENT IN ASLEEP, AROUSABLE TO VOICE. NO ACUTE DISTRESS, DENIES PAIN OR DISCOMFORT. WILL CONTINUE TO MONITOR.
--- NOTE | 2018-11-16 02:25 | NUR ---
PT RETURNED TO A/C SPO2 85
--- NOTE | 2018-11-16 03:40 | NUR ---
NO ACUTE DISTRESS NOTED. DENIES PAIN. TOLERATED WELL WITH VENT AND FEEDING. WILL CONTINUE TO MONITOR.
--- NOTE | 2018-11-16 04:30 | NUR ---
PROVIDED MORNING CARE, BEDBATH. PATIENT TOLERATED WELL. VERY SMALL AMOUNT BROWN FORMED BOWEL NOTED. SB ON THE MONITOR. CONTINUE TO MONITOR.
[2018-11-16] MEDS: CLINDAMYCIN 300 MG in DEXTROSE 5% 50 ML IV SCH ×3 (05:38→17:48)
[2018-11-16] MEDS: SILDENAFIL 20 MG TAB NG SCH ×3 (05:38→20:24)
--- NOTE | 2018-11-16 05:40 | NUR ---
ADMINISTERED ABX, SILDENAFIL ORDERED, PATIENT TOLERATED WELL WITH TUBE FEEDING, RESIDUAL 30 CC NOTED. NO ACUTE DISTRESS NOTED. DENIES PAIN. STILL ON VERSED DRIP, RASS -2, AROUSABLE TO VOICE. SB ON THE MONITOR. WILL CONTINUE TO MONITOR.
[2018-11-16 05:58] LABS: ANION GAP 8.6 (8-16); CARBON DIOXIDE 33.6 mmol/L (21-32); CREATININE 0.6 mg/dL (0.6-1.3); POTASSIUM 4.2 mmol/L (3.5-5.1)
[2018-11-16 06:02] LABS: MAGNESIUM 1.7 mg/dL (1.8-2.4); PHOSPHORUS 2.9 mg/dL (2.5-4.9)
[2018-11-16 06:15] LABS: BASOPHILS % (AUTO) 0.1 % (0.0-2.0); EOSINOPHILS % (AUTO) 0.5 % (0.0-4.0); HEMATOCRIT 43.2 % (36-48); HEMOGLOBIN 13.2 g/dL (12.0-16.0); LYMPHOCYTES # (AUTO) 1.2 K/uL (2.5-16.5); LYMPHOCYTES % (AUTO) 19.5 % (20.5-51.1); MEAN CORPUSCULAR HEMOGLOBIN 26 pg (27-31); MEAN CORPUSCULAR HGB CONC 31 g/dL (33-37); MEAN CORPUSCULAR VOLUME 84.1 fL (80-94); MONOCYTES # (AUTO) 0.4 K/uL (0.8-1.0); MONOCYTES % (AUTO) 7.1 % (1.7-9.3); NEUTROPHILS # (AUTO) 4.6 K/uL (1.8-7.7); NEUTROPHILS % (AUTO) 72.8 % (42.2-75.2); PLATELET COUNT (AUTO) 113 K/uL (140-450); RED BLOOD CELL COUNT(AUTO) 5.14 MIL/uL (4.20-5.40); RED CELL DISTRIBUTION WIDTH 16.7 % (11.6-13.7); WHITE BLOOD COUNT (AUTO) 6.3 K/uL (4.8-10.8)
[2018-11-16] MEDS: ALBUTEROL SULFATE/IPRATROPIU 3 ML SOL IH SCH ×2 (06:43→18:41)
--- NOTE | 2018-11-16 06:43 | NUR ---
REC'D PT ON CARESCAPE VENT SETTINGS AC16 VT 500 PEEP 7 FIO2 28% ALARMS ON AND AUDIBLE AND AMBU BAG IS AT SIDE OF VENT AND VENT IS PLUGGED INTO RED OUTLET, NO HHN GIVEN DUE TO PT SLEEPING B\S ARE DIMINISHED BILATERALLY, NO NEEDED AT THIS TIME, PT IS ORALLY INTUBATED WITH 7.5 ET TUBE SECURED WITH ANCHOR FAST AT 21 CM @LIP AND SKIN INTEGRITY IS INTACT
[2018-11-16] MEDS: BLOOD GLUCOSE MONITORING 1 DEV DEV FS SCH ×4 (07:30→20:25)
--- NOTE | 2018-11-16 07:30 | NUR ---
RECEIVED REPORT FROM EXPOSURE MACHINE OPERATOR NURSE AT BEDSIDE, PT IS SEDATED, RASS -1, VSS, FLACC 0, ETT TO VENT WITH FIO2 28, TV 500, R 16, PEEP 5, NO S/S OF DISTRESS, CLEAR LUNG SOUNDS MARGIE. O2 SAT 100%, SB ON DIRECTOR OF COMMUNITY LIFE, GENERALIZED EDEMA NOTED, LARGE SOFT ABDOMEN WITH ACTIVE BOWEL SOUNDS, NGT TO LEFT NARES, PLACEMENT CHECKED, RUNNING GLUCERNA AT 75ML/HR, 0 ML RESIDUALS AT THIS TIME, F/C IN PLACE, CLEAR YELLOW URINE NOTED VIA GRAVITY, SKIN IS WARM AND DRY TO TOUCH, NO OPEN WOUND PRESENT, DISCOLORATION TO BLE NOTED, CENTRAL LINE TO RIJ, TLC, PATENT, RUNNING VERSED AT 3MG/HR AND D5 NS AT 20ML/HR, GENERALIZED WEAKNESS NOTED TO ALL EXTREMITIES, HOB ELEVATED TO 30 DEGREES, SAFETY MEASURES IN PLACE, CALL LIGHT WITHIN REACH, WILL CONTINUE TO MONITOR.
--- NOTE | 2018-11-16 08:20 | NUR ---
DR. LAW HERE TO SEE AND EXAMINE PT. VERSED DRIP TURNED OFF PER DR. LAW.
--- NOTE | 2018-11-16 08:22 | NUR ---
AT BEDSIDE CHANGED VENT TO CPAP 6 PS 15 PT IS AWAKE AND ALERT
[2018-11-16] MEDS ORDERED: MAG SULF 2000 MG/WATER PREMIX 50 ML IV SCH (08:39)
[2018-11-16] MEDS ORDERED: LISINOPRIL 20 MG TAB GT SCH (09:00)
[2018-11-16] MEDS ORDERED: FUROSEMIDE 20 MG/2 ML VIAL IVP SCH (09:04)
--- NOTE | 2018-11-16 09:30 | NUR ---
SCHEDULED MEDICATION GIVEN, PT TOLERATED WELL, NO ADVERSE EFFECTS NOTED.
[2018-11-16] MEDS: methylPREDNISolone SS 40 MG/ML VIAL IVP SCH (09:34)
[2018-11-16] MEDS: amLODIPine 5 MG TAB NG SCH (09:34)
[2018-11-16] MEDS: LACTOBACILLUS RHAMNOSUS GG 1 EACH CAP PO SCH (09:34)
[2018-11-16] MEDS: LISINOPRIL 20 MG TAB GT SCH ×2 (09:34→20:24)
[2018-11-16] MEDS: metFORMIN 500 MG TAB NG SCH ×2 (09:34→17:48)
[2018-11-16] MEDS: PANTOPRAZOLE 40 MG INJ VIAL IVP SCH (09:35)
[2018-11-16] MEDS: ENOXAPARIN 40 MG/0.4 ML SYR SUBQ SCH (09:36)
[2018-11-16] MEDS: LEVOTHYROXINE 100 MCG IV SCH (09:39)
--- NOTE | 2018-11-16 10:30 | NUR ---
PT'S FAMILY MEMBERS AT BEDSIDE, PT IS AAOX4 NOW, EXPLAINED THE POC TO PT AND FAMILY MEMBERS, VERBALIZED UNDERSTANDING IT.
--- NOTE | 2018-11-16 10:32 | NUR ---
vent check, pt back on ac mode due to low vt 198 rr 36 o2sat of 85% family at bedside and ken nielsen
--- NOTE | 2018-11-16 11:40 | NUR ---
pt placed back on cpap 6 ps 15 hr 60 rr 25 o2 sat 91%
[2018-11-16] MEDS: DEXT 5% /NACL 0.9% 1,000 ML IV SCH (11:59)
--- NOTE | 2018-11-16 12:00 | NUR ---
NO S/S OF DISTRESS, VSS, DENIES PAIN, ORAL CARE PROVIDED, POSITION CHANGED FOR OFF LOAD PRESSURE.
--- NOTE | 2018-11-16 12:50 | NUR ---
VENT CHECK, PT PLACED BACK ON CPAP6 PS15 PT SLEEPING NO HHN GIVEN RN WILLIAM NOTIFIED OF CHANGES MADE
--- NOTE | 2018-11-16 14:00 | NUR ---
NO CHANGE OF CONDITION AT THIS TIME, PT HAD A LARGE BOWEL MOVEMENT, [place] [facility] CARE PROVIDED, POSITION CHANGED FOR OFF LOAD PRESSURE.
--- NOTE | 2018-11-16 16:00 | NUR ---
PT IS RESTING IN BED, NO S/S OF DISTRESS, VSS, DENIES PAIN, ORAL CARE PROVIDED, PM CARE AND F/C CARE DONE, POSITION CHANGED FOR OFF LOAD PRESSURE.
--- NOTE | 2018-11-16 18:00 | NUR ---
PT IS RESTING IN BED, NO S/S OF DISTRESS, DENIES PAIN, POSITION CHANGED FOR OFF LOAD PRESSURE.
--- NOTE | 2018-11-16 19:25 | NUR ---
REPORT GIVEN TO STATOR WINDER NURSE AT BEDSIDE FOR CONTINUE OF CARE, PT IS IN STABLE CONDITION AT THIS TIME.
--- NOTE | 2018-11-16 19:25 | NUR ---
RECEIVED BEDSIDE REPORT FORM MORNING SHIFT RN, ABRIL AVINA. ALLERGY BAND: ACETAMINOPHEN. AFEBRILE TEMP 97.2, BP = 135/72, RR=27, SATING 96%, HR=81. AAOX4, ABLE TO MAKE NEEDS KNOWN. SR ON LEATHER LEVELER. ACVC VENT SETTINGS, FIO2=28%, EP=286, RR=12, FLOW=40, PEEP=6, PMAX=50. LUNG SOUND CLEAR ON BILATERAL UPPER/LOWER LOBES. NGT TO FEED, GLUCERNA 1.2 AT 75ML/HR. D5NS INFUSIN AT 20ML/HR TO RIGHT IJ. BURTON CATH IN PLACE, URINE IS DARK BRITANY IN COLOR. SKIN IS NORMAL IN COLOR, MILD REDNESS (HX LEFT LEG CELLULITIS). PT DENIES PAIN/NAUSE AT THIS TIME. ON THERAPEUTIC MATTRESS. FALL RISK PRECAUTIONS, HOB ELEVATED ABOVE 30 DEG.
--- NOTE | 2018-11-16 20:30 | NUR ---
FAMILY AT BEDSIDE TO SEE PATIENT, UPDATED ON PT CONDITION. PT C/O MILD HEADACHE, DENIES PAIN ANYWHERE ELSE.
--- NOTE | 2018-11-16 23:31 | NUR ---
PT DENIES HAVING PAIN AT THIS TIME/DENIES PAIN MEDICATION. ABLE TO ASSIST IN SUCTIONING SELF.
[2018-11-17] VITALS (25 sets, daily range): BP systolic 92–160; BP diastolic 43–88
[2018-11-17] MEDS: CLINDAMYCIN 300 MG in DEXTROSE 5% 50 ML IV SCH ×5 (00:13→23:51)
[2018-11-17] MEDS: LORazepam 2 MG/ML VIAL IM/IVP PRN ×3 (01:18→20:56)
--- NOTE | 2018-11-17 01:21 | NUR ---
ATIVAN GIVEN AND PATIENT EDUCATION PROVIDED.
--- NOTE | 2018-11-17 05:00 | NUR ---
BED BATH, ORAL AND BURTON CATH CARES PROVIDED TO PATIENT. REPOSITIONED ON THERAPEUTIC MATTRESS AND FRESH LINEN PROVIDED. SUCTIONING OF ETT TUBE AND ORAL CAVITY PERFORMED FOLLOWING AM CARES. PT TOLERATED WELL. SMALL BM, DARK BROWN. URINE OUTPUT QSHIFT = 1300ML. URINE IS DARK BRITANY WITH RED SEDIMENT IN BURTON BAG.
[2018-11-17] MEDS: MORPHINE SULFATE 2 MG/ML SYR IVP PRN (05:28)
[2018-11-17] MEDS: SILDENAFIL 20 MG TAB NG SCH ×3 (05:28→20:22)
[2018-11-17 06:02] LABS: BASOPHILS % (AUTO) 0.1 % (0.0-2.0); EOSINOPHILS # (AUTO) 0.1 K/uL (0-0.4); EOSINOPHILS % (AUTO) 1.2 % (0.0-4.0); HEMATOCRIT 44.1 % (36-48); HEMOGLOBIN 13.5 g/dL (12.0-16.0); LYMPHOCYTES # (AUTO) 1.2 K/uL (2.5-16.5); LYMPHOCYTES % (AUTO) 12.9 % (20.5-51.1); MEAN CORPUSCULAR HEMOGLOBIN 26 pg (27-31); MEAN CORPUSCULAR HGB CONC 31 g/dL (33-37); MEAN CORPUSCULAR VOLUME 83.1 fL (80-94); MONOCYTES # (AUTO) 0.5 K/uL (0.8-1.0); MONOCYTES % (AUTO) 5.9 % (1.7-9.3); NEUTROPHILS # (AUTO) 7.4 K/uL (1.8-7.7); NEUTROPHILS % (AUTO) 79.9 % (42.2-75.2); PLATELET COUNT (AUTO) 121 K/uL (140-450); RED BLOOD CELL COUNT(AUTO) 5.31 MIL/uL (4.20-5.40); RED CELL DISTRIBUTION WIDTH 16.7 % (11.6-13.7); WHITE BLOOD COUNT (AUTO) 9.2 K/uL (4.8-10.8)
[2018-11-17 06:08] LABS: MAGNESIUM 1.9 mg/dL (1.8-2.4)
[2018-11-17 06:10] LABS: ANION GAP -0.6 (8-16); CARBON DIOXIDE 38.6 mmol/L (21-32); CREATININE 0.6 mg/dL (0.6-1.3)
--- NOTE | 2018-11-17 07:00 | NUR ---
RECIVED PT ON VENT WITH SETTINGS CHARTED BREATH SOUNDS PRESENT BILAT COARSE SXN PT WIYH MOD AMT FROTHY SECS ETT SUCURE AMBU BAG AT BEDSIDE VENT PLUGGED INTO RED OUTLET WILL CONTINUE TO MONITOR PT ON VENT
[2018-11-17] MEDS: BLOOD GLUCOSE MONITORING 1 DEV DEV FS SCH ×4 (07:05→20:20)
--- NOTE | 2018-11-17 07:10 | NUR ---
CHANGED PT TO CPAP WITH SETTINGS CHARTED DR CORTEZ BEDSIDE TRYING TO WEAN DR PHELAN WILL CONTINUE GAYATRI BY PT
--- NOTE | 2018-11-17 07:25 | NUR ---
PROVIDED BEDSIDE REPORT FOR MORNING SHIFT RNMENDEL, FOR CONTINUITY OF CARE PT IN STABLE CONDITION AT THIS TIME.
--- NOTE | 2018-11-17 07:30 | NUR ---
RECEIVED BEDSIDE REPORT FROM JOURNEYMAN MOLDER NURSE. PT IS AWAKE, MARSHALLESE SPEAKING. ABLE TO FOLLOW COMMANDS AND ABLE TO MAKE NEEDS KNOWN BY WRITING IN MARSHALLESE. SR ON MONITOR. ETT TO VENT W/ SETTINGS: AC 12, FIO2 28%, TV 500, PEEP 6, LUNG SOUNDS CLEAR BILATERALLY. NO SIGNS OF RESP DISTRESS NOTED. ABDOMEN SOFT, ROUND, NONTENDER WITH ACTIVE BOWEL SOUNDS. NGT IN PLACE TO LEFT NARES. PLACEMENT CONFIRMED. PT IS ON TF GLUCERNA AT 75ML/HR W/ WATER FLUSH 100 ML Q4H. NO RESIDUALS NOTED. BURTON CATH IN PLACE DRAINING YELLOW URINE WITH SEDIMENTS. CENTRAL LINE TO RIJ TLC, PATENT AND INTACT, PT RECEIVING D5 NS AT 20ML/HR. SKIN IS DRY AND WARM TO TOUCH. DISCOLORATION TO BLE NOTED. HOB ELEVATED TO 30 DEGREES AND BED IN LOWEST POSITION LOCKED. CALL LIGHT WITHIN REACH. WILL CONTINUE TO MONITOR.
[2018-11-17] MEDS: ALBUTEROL SULFATE/IPRATROPIU 3 ML SOL IH SCH ×3 (07:45→19:00)
--- NOTE | 2018-11-17 07:45 | NUR ---
DR. CORTEZ IN TO SEE PT. WILL FOLLOW UP ON ORDERS.
--- NOTE | 2018-11-17 07:50 | NUR ---
PT REF HHN SAYS IT MAKES HER HR RISE
[2018-11-17] MEDS: PANTOPRAZOLE 40 MG INJ VIAL IVP SCH (08:41)
[2018-11-17] MEDS: FUROSEMIDE 20 MG/2 ML VIAL IVP SCH (08:41)
[2018-11-17] MEDS: metFORMIN 500 MG TAB NG SCH ×2 (08:41→17:06)
[2018-11-17] MEDS: methylPREDNISolone SS 40 MG/ML VIAL IVP SCH (08:41)
[2018-11-17] MEDS: LACTOBACILLUS RHAMNOSUS GG 1 EACH CAP PO SCH (08:41)
[2018-11-17] MEDS: LISINOPRIL 20 MG TAB GT SCH ×2 (08:42→21:00)
[2018-11-17] MEDS: amLODIPine 5 MG TAB NG SCH (08:42)
[2018-11-17] MEDS: ENOXAPARIN 40 MG/0.4 ML SYR SUBQ SCH (08:43)
[2018-11-17] MEDS: LEVOTHYROXINE 100 MCG IV SCH (08:45)
--- NOTE | 2018-11-17 09:35 | NUR ---
MEDICATIONS ADMINISTERED ORDERED. PT TOLERATED WELL.
--- NOTE | 2018-11-17 11:13 | NUR ---
DECREASED PEEP TO +5 AND PRESSURE SUPPORT TO 10 PT SEEMS TO BE GAYATRI OK STILL SEEMS ANXIOUS WILL CONTINUE TO MONITORPT ON CURRENT SETTINGS RN AWARE
--- NOTE | 2018-11-17 11:20 | NUR ---
PT HAD MODERATE AMOUNT OF BROWN PASTY BOWEL MOVEMENT. CLEANED AND REPOSITIONED. PT ABLE TO HELP WITH TURNING. VSS.
[2018-11-17] MEDS: DEXT 5% /NACL 0.9% 1,000 ML IV SCH (12:17)
[2018-11-17] MEDS: INSULIN LISPRO SLIDING SCALE 100 UNITS/ML VIAL SUBQ PRN ×2 (12:19→17:08)
--- NOTE | 2018-11-17 12:59 | NUR ---
O2 SAT 87%, RR 32 AT THIS TIME. PT ON CPAP. RT MADE AWARE. WILL CONTINUE TO MONITOR.
--- NOTE | 2018-11-17 13:00 | NUR ---
PTS SPO2 FALLING BELOW .88 RR 33 PT COMPLAINING OF WORK OF BREATHING PUT PT BACK TO SETTINGS CHARTED BREATH SOUNDS PRESENT BILAT COARSE PT REF HHN SAYS MAKES HER HEART GO TO FAST SXN PT FROTHY OFF WHITE SECS WILL DCNTINJE TO MONITOR PT RN AWARE
--- NOTE | 2018-11-17 13:18 | NUR ---
11/17/18 RD FOLLOW UP COMPLETED PLEASE REFER TO NUTRITION ASSESSMENT UNDER CARE ACTIVITY FOR ESTIMATED NUTRITIONAL NEEDS. 1. CONTINUE GLUCERNA @75 ML/HR WITH 100 ML FLUSH Q4H -THIS PROVIDES 1800 ML, 2160 KCAL, 108 GM OF PROTEIN WHICH MEETS 93% OF ESTIMATED KCAL NEEDS 100% OF ESTIMATED PROTEIN. 2. IF/WHEN PATIENT EXTUBATED AND IS MEDICALLY STABLE CONSIDER SWALLOW EVAL FOR APPROPRIATE DIET TEXTURES, AND CONSIDER ADVANCING PO DIET TO CCHO 60 GM WITH APPROPRIATE FOOD TEXTURE PER DRIVER SUPERVISOR TOLERATED. 3. RD TO FOLLOW-UP 2-3 DAYS, HIGH RISK. YAIR BOYD RD
--- NOTE | 2018-11-17 15:15 | NUR ---
NO CHANGE OF CONDITION AT THIS TIME. VSS. PT ORALLY SUCTIONS MOUTH BY HERSELF. NO SIGNS OF DISTRESS NOTED AT THIS TIME. WILL CONTINUE TO MONITOR.
--- NOTE | 2018-11-17 16:00 | NUR ---
VAP ORAL CARE GIVEN. REPOSITIONED FOR COMFORT. NO DISTRESS NOTED AT THIS TIME.
--- NOTE | 2018-11-17 17:50 | NUR ---
FAMILY AT BEDSIDE. UPDATED ON PT'S CONDITION.
--- NOTE | 2018-11-17 17:52 | NUR ---
CONTINUED O MONITO P ON VENT WITH SETTINGS CHARTED BREATH SOUNDS PRESENT BILAT COARSE SXN PT WITH FOTHY OFF WHITE SECS PT ANXIOUS EET SITE SECURE AMBU BAG AT BEDSIDE VENT PLUGGED INTO RED OUTLET
--- NOTE | 2018-11-17 19:10 | NUR ---
REPORT GIVEN TO EGG PRODUCER NURSE FOR CONTINUITY OF CARE. PT IS IN STABLE CONDITION.
--- NOTE | 2018-11-17 19:15 | NUR ---
RECEIVED BEDSIDE REPORT FROM MORNING SHIFTR RNMENDEL, FOR CONTINUITY OF CARE. PT IS AAXO4, VENTILATED, ABLE TO MAKE NEEDS KNOWN. SR ON WATER CONTROL SUPERVISOR. AFFEBRILE TEMP 97.2, BP=98/67, RR=16, SATING 96%, AND HR=78.ETT TO VENT, FIO=28,%,CQ=818, RR=16, FLOW=40L/MIN, PEEP=6, PMAX=55. LUNG SOUNDS CLEAR ON UPPER/LOWER BILATERAL LOBES. PT ABLE TO SUCTION ORAL SECRETIONS INDEPENDENTLY. BOWEL SOUND ACTIVE, NGT IN PLACE SET TO FEED, GLUCERNA 1.2 AT 75ML/HR, FLUSHED/AUSCULTATED FOR PROPER PLACEMENT, NO RESIDUAL. RIGHT IJ INFUSING D5NS AT 20ML/HR TO RIGHT IJ. BURTON CATH IS INTACT, URINE IS CLOUDY AND BRITANY IN COLOR. ALLERGY BAND IN PLACE, ALLERGY TO ACETAMINIOPHEN NOTED, FULL COLD. SKIN DISCOLORATION ON BILATERAL LOBER LEGS/CALF, MILD FLAKING. 1+ PITTING EDEMA ON BILATERAL HANDS, 1-2+ PITTING EDEMA ON BILATERAL LEGS. C/O MILD HEADACHE AND NAUSEA. ON STANDARD PRECATUTIONS, HOB ELEVATED, SIDE RAILS UP X4, CALL LIGHT WITHING REACH.
--- NOTE | 2018-11-17 20:41 | NUR ---
FAMILY AT BEDSIDE, STATED COMPLAINING OF WANTING TO GO HOME, TROUBLE SLEEPING, AND DISCOMFORT FROM ET TUBE. EXPLAINED TO PATIENT WHY HER STAY IN ICU IS NECESSARY AND PURPOSE OF THE VENT. CALLED RESIDENT PHONE, AT [phone], UPDATED DR. TANG ON PT CONDITION. VSS.
[2018-11-17] MEDS: MORPHINE SULFATE 4 MG/ML SYR IVP PRN (20:55)
--- NOTE | 2018-11-17 21:00 | NUR ---
DR. MONDRAGON AND CLYDE IN TO TALK TO PATIENT. TO UPDATE WITH NEW ORDERS.
--- NOTE | 2018-11-17 21:36 | NUR ---
PT SLEEPING, APPEARS TO BE WITHOUT DISTRESS, FLACC =0.
[2018-11-17] MEDS ORDERED: CLINDAMYCIN 600 MG/4 ML VIAL ONE (23:53)
[2018-11-18] VITALS (20 sets, daily range): BP systolic 89–141; BP diastolic 40–99
--- NOTE | 2018-11-18 00:30 | NUR ---
VAP ORAL CARE/SUCTIONING PROVIDED TO PATIENT. DONOVAN PAIN/NAUSEA AT THIS TIME.
[2018-11-18] MEDS: LORazepam 2 MG/ML VIAL IM/IVP PRN (02:15)
--- NOTE | 2018-11-18 03:00 | NUR ---
ATIVAN GIVEN TO PATIENT WAS EFFECTIVE. PT SLEEPING AND APPEARS TO BE CALM/RELAXED, FLACC=0.
[2018-11-18] MEDS: MORPHINE SULFATE 4 MG/ML SYR IVP PRN (05:50)
[2018-11-18 05:58] LABS: ANION GAP 0.6 (8-16); CARBON DIOXIDE 37.5 mmol/L (21-32); CREATININE 0.8 mg/dL (0.6-1.3); POTASSIUM 4.1 mmol/L (3.5-5.1)
[2018-11-18 06:04] LABS: EOSINOPHILS # (AUTO) 0.1 K/uL (0-0.4); EOSINOPHILS % (AUTO) 2.2 % (0.0-4.0); HEMATOCRIT 39.7 % (36-48); LYMPHOCYTES # (AUTO) 1.1 K/uL (2.5-16.5); LYMPHOCYTES % (AUTO) 16.3 % (20.5-51.1); MEAN CORPUSCULAR HEMOGLOBIN 25 pg (27-31); MEAN CORPUSCULAR HGB CONC 30 g/dL (33-37); MEAN CORPUSCULAR VOLUME 82.5 fL (80-94); MONOCYTES # (AUTO) 0.6 K/uL (0.8-1.0); MONOCYTES % (AUTO) 8.4 % (1.7-9.3); NEUTROPHILS # (AUTO) 4.8 K/uL (1.8-7.7); NEUTROPHILS % (AUTO) 73.1 % (42.2-75.2); PLATELET COUNT (AUTO) 107 K/uL (140-450); RED CELL DISTRIBUTION WIDTH 16.7 % (11.6-13.7); WHITE BLOOD COUNT (AUTO) 6.6 K/uL (4.8-10.8)
[2018-11-18 06:08] LABS: MAGNESIUM 1.7 mg/dL (1.8-2.4); PHOSPHORUS 3.1 mg/dL (2.5-4.9)
[2018-11-18] MEDS: SILDENAFIL 20 MG TAB NG SCH ×3 (06:40→20:57)
[2018-11-18] MEDS: CLINDAMYCIN 300 MG in DEXTROSE 5% 50 ML IV SCH ×4 (06:41→23:27)
--- NOTE | 2018-11-18 06:55 | NUR ---
PT HAD LARGE BOWEL MOVEMENT, AM CARES PROVIDED WITH FRESH LINENS. PT DENIES PAIN/NAUSEA AT THIS TIME. ABLE TO ASSIST IN REPOSITIONING, TOLERATED WELL.
[2018-11-18] MEDS: BLOOD GLUCOSE MONITORING 1 DEV DEV FS SCH ×4 (06:56→20:58)
--- NOTE | 2018-11-18 07:10 | NUR ---
PROVIDED BEDSIDE REPORT TO MORNING SHIFT RN, FOR CONTINUITY OF CARE.
--- NOTE | 2018-11-18 07:12 | NUR ---
RECEIVED BEDSIDE REPORT FROM MOSAIC TILE MAKER RN, CHARITO, FOR CONTINUITY OF CARE. PATIENT IS AAOX4, ABLE TO MAKE NEEDS KNOWN AND FOLLOWS COMMANDS. PATIENT SKIN IS INTACT, SHE HAS A CENTRAL LINE TO RIJ, TRIPLE LUMEN, ASYMPTOMATIC, PATENT. PATIENT HAS ETT TO VENT, SETTINGS IS AC MODE, RATE 16, FIO2 28%, TV 500, PEEP6. BREATHING EVEN AND UNLABORED. SR ON MONITOR, DENIES PAIN. PATIENT HAS NGT TO LEFT NARES, WITH GLUCERNA 1.[address] AT 75 ML/HR. BURTON CATHETER IN PLACE TO YELLOW URINE. HOB IS 30 DEGREES. SAFETY PRECAUTIONS ALARMS ASSESSED AND ENFORCED. NO SIGNS OF DISTRESS NOTED, CALL LIGHT WITHIN REACH. WILL CONTINUE TO MONITOR.
--- NOTE | 2018-11-18 07:23 | NUR ---
CALLED, JOYCE, VIA CONTACT NUMBER ON FACE SHEET PER PT REQUEST. UPDATED HIM THAT PT WAS REQUESTING HIM TO COME ICU/VISIT. JOYCE STATED TO TELL PT THAT HE IS WORKING, BUT WILL PLAN TO ARRIVE 130-2PM THIS AFTERNOON. PT INFORMED THAT JOYCE WAS CALLED AND HIS PLAN TO VISIT THIS AFTERNOON.
--- NOTE | 2018-11-18 07:45 | NUR ---
PATIENT STARTED ON CPAP BY RT, SETTINGS FIO2 28, PEEP6, PS 10, TOLERATING WELL AT THIS TIME, EDUCATED ON IMPORTANCE OF DOING WELL ON CPAP TRIAL. WILL CONTINUE TO MONITOR.
[2018-11-18] MEDS: ALBUTEROL SULFATE/IPRATROPIU 3 ML SOL IH SCH ×3 (07:51→19:12)
--- NOTE | 2018-11-18 07:58 | NUR ---
DR. LEONE AND RESIDENT PHYSICIANS IN TO SEE PATIENT, UPDATED ON PATIENT'S CONDITION. WILL FOLLOW UP ON ANY ORDERS.
--- NOTE | 2018-11-18 08:10 | NUR ---
DR. CORTEZ IN TO SEE AND EXAMINE PATIENT, UPDATED ON PATIENT'S CONDITION. WILL FOLLOW UP ON ANY ORDERS.
[2018-11-18] MEDS ORDERED: MAG SULF 2000 MG/WATER PREMIX 50 ML IV SCH (08:30)
--- NOTE | 2018-11-18 08:30 | NUR ---
TUBE FEEDING HELD, DUE TO PATIENT AT RISK FOR ASPIRATION WHILE ON CPAP TRIAL. DR. WANG AWARE.
[2018-11-18] MEDS ORDERED: MAG SULF 2000 MG/WATER PREMIX 50 ML IV ONE (08:35)
[2018-11-18] MEDS: LISINOPRIL 20 MG TAB GT SCH ×2 (08:39→22:00)
[2018-11-18] MEDS: methylPREDNISolone SS 40 MG/ML VIAL IVP SCH ×2 (08:48→20:57)
[2018-11-18] MEDS: ENOXAPARIN 40 MG/0.4 ML SYR SUBQ SCH (08:48)
[2018-11-18] MEDS: FUROSEMIDE 20 MG/2 ML VIAL IVP SCH (08:49)
[2018-11-18] MEDS: LACTOBACILLUS RHAMNOSUS GG 1 EACH CAP PO SCH (08:50)
[2018-11-18] MEDS: amLODIPine 5 MG TAB NG SCH (08:51)
[2018-11-18] MEDS: metFORMIN 500 MG TAB NG SCH ×2 (08:51→16:59)
[2018-11-18] MEDS: PANTOPRAZOLE 40 MG INJ VIAL IVP SCH (08:51)
[2018-11-18] MEDS: LEVOTHYROXINE 100 MCG IV SCH (08:53)
--- NOTE | 2018-11-18 09:16 | NUR ---
SCHEDULED MEDS ADMINISTERED, PATIENT TOLERATED WELL. NO SIGNS OF DISTRESS NOTED, TOLERATING WELL ON CPAP. WILL CONTINUE TO MONITOR
--- NOTE | 2018-11-18 10:30 | NUR ---
DR. WANG IN TO SEE PATIENT, DISCUSSED PLAN OF CARE WITH PATIENT, EDUCATED ON IMPORTANCE OF DOING WELL ON CPAP. WILL FOLLOW UP ON ANY ORDERS.
--- NOTE | 2018-11-18 11:00 | NUR ---
PATIENT TOLERATING WELL ON CPAP TRIAL, DENIES ANY SOB OR PAIN. WILL CONTINUE TO MONITOR
--- NOTE | 2018-11-18 12:08 | NUR ---
PT'S TEMP 99.5. COOLING MEASURES IN PLACE. HR 89, RR 26, O2 SAT 89% ON CPAP AT THIS TIME. DENIES SOB, PAIN OR DISCOMFORT AT THIS TIME. NO S/SX OF ACUTE DISTRESS NOTED. SAFETY PRECAUTIONS IN PLACE. WILL CONTINUE TO MONITOR.
--- NOTE | 2018-11-18 12:20 | NUR ---
Received call from yani Muhammad. Updated patient's condition and plan of care. Said will be here by 1430. Patient made aware.
--- NOTE | 2018-11-18 12:25 | NUR ---
Pt. tolerating CPAP trial. Saturating 89% -93%. No SOB or acute distress noted. Care provided as needed. Will continue to monitor.
[2018-11-18] MEDS: DEXT 5% /NACL 0.9% 1,000 ML IV SCH (12:40)
--- NOTE | 2018-11-18 13:38 | NUR ---
PATIENT IS TOLERATING WELL ON CPAP, NO SIGNS OF DISTRESS NOTED.
--- NOTE | 2018-11-18 14:26 | NUR ---
DR. CORTEZ CALLED AND UPDATED ON PATIENT'S BLOOD GAS AFTER BEING ON CPAP SINCE THIS MORNING, STATES OK TO EXTUBATED PATIENT, WILL FOLLOW UP WITH ANY ORDERS.
--- NOTE | 2018-11-18 14:38 | NUR ---
PATIENT'S SON AT BEDSIDE, UPDATED ON PATIENT'S CONDITION. AWARE THAT WE WILL BE EXTUBATING PATIENT TODAY
[2018-11-18] MEDS ORDERED: MORPHINE SULFATE 2 MG/ML SYR IVP PRN (14:55)
--- NOTE | 2018-11-18 15:07 | NUR ---
PATIENT IS EXTUBATED, RT AND SON AT BEDSIDE, TOLERATED WELL. NO SIGNS OF DISTRESS NOTED. DR. KATHLEEN PHELAN.
--- NOTE | 2018-11-18 15:13 | NUR ---
PT EXTUBATED AND PLACED ON 5LPM NC PT AWAKE ALERT SON AT BEDSIDE PT SPO2 88 TO 92 SEEMS TO BE DOING WELL WILL CONTINUE PT
--- NOTE | 2018-11-18 15:24 | NUR ---
DR. CORTEZ CALLED AND AWARE THAT PATIENT IS EXTUBATED AND TOLERATING WELL.
--- NOTE | 2018-11-18 15:32 | NUR ---
PATIENT AND PATIENT'S SON EDUCATED ON IMPORTANCE OF BIPAP OVERNIGHT AND SITTING AT GREATER THAN 45 DEGREES. PATIENT VERBALIZED UNDERSTANDING
--- NOTE | 2018-11-18 15:57 | NUR ---
PATIENT'S SON AND AT BEDSIDE, NO SIGNS OF DISTRESS NOTED
--- NOTE | 2018-11-18 16:58 | NUR ---
PATIENT PULLED OUT NGT, DR. AHN IS AWARE, STATES THAT PATIENT CAN TAKE METFORMIN PO WITH ONE BITE OF APPLE SAUCE. PATIENT EDUCATED ON BEING NPO EXCEPT FOR MEDS. SHE VERBALIZES UNDERSTANDING.
--- NOTE | 2018-11-18 18:11 | NUR ---
PATIENT CLEANED AND REPOSITIONED, HOB IS [address] MEI IN TO SEE PATIENT, UPDATED ON PATIENT'S CONDITION. AWARE THAT PATIENT PULLED OUT NGT AND WILL BE PLACED ON BIPAP AT 7PM
--- NOTE | 2018-11-18 19:14 | NUR ---
ENDORSED CONTINUITY OF CARE TO COMMUNITY RELATIONS ADVISOR SHADY SHEPPARD. RT AT BEDSIDE FOR BREATHING TREATMENT, NO SIGNS OF DISTRESS AT THIS TIME
--- NOTE | 2018-11-18 19:30 | NUR ---
RECEIVED REPORT FROM MORNING RN, RUBÉN, FOR CONTINUITY OF CARE. VS STABLE AT THIS TIME. PT AWAKE, ALERT AND ORIENTED X4. ABLE TO MAKE NEEDS KNOWN AND SPEAKS ALGERIAN. PT ABLE TO FOLLOW COMMANDS AND ABLE TO MAKE NEEDS KNOWN. AFEBRILE AT THIS TIME. PERRL. DENIES PAIN. PT ABLE TO MOVE EXTREMITIES. PT IS IN BED AND CURRENTLY PROVIDING HERSELF ORAL SUCTIONING. LUNG SOUNDS CLEAR. PT IS ON OXYGEN AT 5L/MIN. DENIES HAVING DIFFICULTY BREATHING. PT STATES THAT SHE HAS A LOT OF SECRETIONS. NO SOB NOTED. S1+S2 HEARD. PULSES ARE PALPABLE IN ALL EXTREMITIES. SR ON MONITOR. BS ACTIVE IN ALL QUADRANTS. ABDOMEN ROUND, SOFT AND NONDISTENDED. PT HAS BURTON CATHETER IN PLACE WITH CLEAR AND YELLOW URINE. BURTON CATHETER IS SECURED IN PLACE. PT HAS RIGHT IJ CENTRAL LINE TRIPLE LUMEN IN PLACE. RECEIVED PT ON D5 NS AT 70ML/HR. SCDS ARE IN PLACE. PT DENIES ANY DISCOMFORT AT THIS TIME. CALL LIGHT WITHIN REACH. BED AT LOWEST POSSIBLE POSITION. ALL SAFETY PRECAUTIONS ARE IN PLACE. WILL CONTINUE TO MONITOR PT.
--- NOTE | 2018-11-18 20:15 | NUR ---
PT'S FAMILY AT BEDSIDE AT THIS TIME.
--- NOTE | 2018-11-18 21:03 | NUR ---
PT WAS ABLE TO TOLERATE TAKING HER MEDICATIONS ORALLY. NO COUGHING EPISODE OR SOB NOTED. PT STATES THAT SHE IS OKAY.
--- NOTE | 2018-11-18 22:15 | NUR ---
RESPIRATIONS ARE EVEN AND UNLABORED. OXYGEN SATURATION AT 91% WITH RR AT 16. PT DENIES ANY DIFFICULTY BREATHING AT THIS TIME. PT IS AAOX4. VS STABLE AT THIS TIME. SR ON MONITOR. CALLED RT TO COME IN AND HAVE PT ON BIPAP.
--- NOTE | 2018-11-18 22:36 | NUR ---
CALLED RESIDENT DOCTOR TO INFORM THAT PT KEEPS ON REQUESTING FOR SOMETHING TO EAT. PT WANTS APPLESAUCE. ALREADY INFORMED PT THAT SHE IS NPO EXCEPT MEDS. PER RESIDENT DOCTOR, IF PT INSISTS THEN PUT BACK PT ON TUBE FEEDING THROUGH NGT.
--- NOTE | 2018-11-18 22:40 | NUR ---
INFORMED PT THAT SHE IS TO REMAIN NPO EXCEPT MEDS. REFUSES NGT TO BE PUT BACK IN. RT AT BEDSIDE TO PUT PT ON BIPAP. PER RT, THERE WAS NO SPECIFIC TIME ORDERED FOR PT TO BE PUT ON BIPAP.
[2018-11-19] VITALS (17 sets, daily range): BP systolic 106–139; BP diastolic 43–76
--- NOTE | 2018-11-19 00:15 | NUR ---
NO CHANGES IN PT'S CONDITION AT THIS TIME. PT TOLERATING BIPAP WELL. VS STABLE AT THIS TIME. RESPIRATIONS ARE EVEN AND UNLABORED.
[2018-11-19] MEDS: LORazepam 2 MG/ML VIAL IM/IVP PRN ×2 (01:05→22:16)
[2018-11-19] MEDS: DEXT 5% /NACL 0.9% 1,000 ML IV SCH ×2 (01:13→22:52)
--- NOTE | 2018-11-19 03:00 | NUR ---
VS STABLE. RESPIRATIONS REMAIN EVEN AND UNLABORED. PT STILL ON BIPAP. PT DENIES ANY DISCOMFORT AT THIS TIME. PT WAS ABLE TO REPOSITION SELF IN BED. PT HAS ADEQUATE URINE OUTPUT AT THIS TIME.
--- NOTE | 2018-11-19 05:05 | NUR ---
GENERAL PASSENGER AGENT AT BEDSIDE FOR MORNING LAB DRAW. BLOOD DRAWN FROM RIGHT IJ CENTRAL LINE.
[2018-11-19] MEDS: CLINDAMYCIN 300 MG in DEXTROSE 5% 50 ML IV SCH ×2 (05:57→11:53)
[2018-11-19] MEDS: SILDENAFIL 20 MG TAB NG SCH ×3 (05:57→20:36)
--- NOTE | 2018-11-19 06:05 | NUR ---
ABG DONE AT 0530 RESULTS READ BACK TO RESIDENT DOCTOR. PATIENT PLACED BACK ON BIPAP AND SETTINGS ADJUSTED TO ALLOW PATIENT TO VENTILATE ADEQUATELY (DECREASE CO2) AND IMPROVE PH. BIPAP SETTINGS INCREASE 14/6 RATE 14 AND FIO2 40% I-TIME 1.45 RISE 1. PATIENT SATURATION 93 HEART 80. RT SUGGESTED TO RN AND RESIDENT DOCTOR TO RECHECK ABG RESULTS LATER IN THE AFTERNOON.
[2018-11-19 06:11] LABS: HEMATOCRIT 42.4 % (36-48); HEMOGLOBIN 12.8 g/dL (12.0-16.0); LYMPHOCYTES # (AUTO) 0.2 K/uL (2.5-16.5); LYMPHOCYTES % (AUTO) 5.3 % (20.5-51.1); MEAN CORPUSCULAR HEMOGLOBIN 25 pg (27-31); MEAN CORPUSCULAR HGB CONC 30 g/dL (33-37); MEAN CORPUSCULAR VOLUME 83.7 fL (80-94); MONOCYTES # (AUTO) 0.2 K/uL (0.8-1.0); MONOCYTES % (AUTO) 3.8 % (1.7-9.3); NEUTROPHILS % (AUTO) 90.9 % (42.2-75.2); PLATELET COUNT (AUTO) 98 K/uL (140-450); RED BLOOD CELL COUNT(AUTO) 5.07 MIL/uL (4.20-5.40); RED CELL DISTRIBUTION WIDTH 17.3 % (11.6-13.7); WHITE BLOOD COUNT (AUTO) 4.5 K/uL (4.8-10.8)
[2018-11-19] MEDS: BLOOD GLUCOSE MONITORING 1 DEV DEV FS SCH ×4 (06:30→20:43)
--- NOTE | 2018-11-19 06:38 | NUR ---
DR. WANG AT BEDSIDE. INFORMED HER REGARDING THE PT'S CONDITION. RECEIVED NO NEW ORDERS AT THIS TIME.
[2018-11-19 06:48] LABS: CREATININE 0.5 mg/dL (0.6-1.3)
--- NOTE | 2018-11-19 07:01 | NUR ---
RECEIVED BEDSIDE REPORT FROM TALENT DEVELOPMENT DIRECTOR RN, SHADY, FOR CONTINUITY OF CARE. PATIENT IS AAOX4, ABLE TO MAKE NEEDS KNOWN AND FOLLOWS COMMANDS. PATIENT SKIN IS INTACT, SHE HAS A CENTRAL LINE TO [facility], TRIPLE LUMEN, ASYMPTOMATIC, PATENT. SHE IS ON BIPAP, SETTINGS IPAP 14, EPAP 6, RATE 14, FIO2 40%. BREATHING EVEN AND UNLABORED. SR ON MONITOR, DENIES PAIN. PER TALENT DEVELOPMENT DIRECTOR RN, PATIENT HAD 1 BM AND LAST BLOOD GLUCOSE WAS 144. BURTON CATHETER IN PLACE TO YELLOW URINE. HOB IS 30 DEGREES. SAFETY PRECAUTIONS ALARMS ASSESSED AND ENFORCED. NO SIGNS OF DISTRESS NOTED, CALL LIGHT WITHIN REACH. WILL CONTINUE TO MONITOR.
--- NOTE | 2018-11-19 07:06 | NUR ---
REPORT GIVEN TO MORNING RN, RUBÉN, FOR CONTINUITY OF CARE. PT STABLE AT THIS TIME.
--- NOTE | 2018-11-19 08:02 | NUR ---
DR. LEONE AND RESIDENT PHYSICIANS AT BEDSIDE, UPDATED ON PATIENT'S CONDITION. WILL FOLLOW UP ON ANY ORDERS.
[2018-11-19] MEDS: methylPREDNISolone SS 40 MG/ML VIAL IVP SCH ×2 (08:12→20:35)
[2018-11-19] MEDS: LISINOPRIL 20 MG TAB GT SCH ×2 (08:13→20:35)
[2018-11-19] MEDS: amLODIPine 5 MG TAB NG SCH (08:13)
[2018-11-19] MEDS: metFORMIN 500 MG TAB NG SCH ×2 (08:13→17:13)
[2018-11-19] MEDS: PANTOPRAZOLE 40 MG INJ VIAL IVP SCH (08:13)
[2018-11-19] MEDS: FUROSEMIDE 20 MG/2 ML VIAL IVP SCH (08:13)
[2018-11-19] MEDS: LACTOBACILLUS RHAMNOSUS GG 1 EACH CAP PO SCH (08:13)
[2018-11-19] MEDS: LEVOTHYROXINE 100 MCG IV SCH (08:14)
[2018-11-19] MEDS: ENOXAPARIN 40 MG/0.4 ML SYR SUBQ SCH (08:17)
[2018-11-19] MEDS: ALBUTEROL SULFATE/IPRATROPIU 3 ML SOL IH SCH ×3 (08:18→18:17)
--- NOTE | 2018-11-19 08:18 | NUR ---
RECEIVED ON A [employer] V60 BIPAP PLUGGED INTO RED OUTLET TOLERATING WELL WITHOTU ADVERSE REACTIONS NOTED TO FACIAL MASK SECURED WITH HEAD STRAP BIPAP SETTINGS CHANGED NOTED PER V.O. FROM DR CECE CORTEZ TO DR KAYLI XIE BAG NOTED AT HOB
--- NOTE | 2018-11-19 08:33 | NUR ---
DR. CORTEZ IN TO SEE PATIENT, UPDATED ON PATIENT'S CONDITION. WILL FOLLOW UP ON ANY ORDERS.
--- NOTE | 2018-11-19 09:45 | NUR ---
PATIENT'S SON IS HERE, UPDATED ON PATIENT'S CONDITION.
--- NOTE | 2018-11-19 09:50 | NUR ---
PATIENT STATES THAT SHE IS HUNGRY, PROVIDED HER WITH JELLO AND WATER. TOOK HER OFF BIPAP AND PLACED HER ON NASAL CANNULA 5LPM. RT AWARE.
[2018-11-19] MEDS: ALBUTEROL SULFATE/IPRATROPIU 3 ML SOL IH PRN (10:01)
--- NOTE | 2018-11-19 10:03 | NUR ---
RT AT BEDSIDE, PLACED PATIENT BACK ON BIPAP SINCE SHE FINISHED EATING. NO SIGNS OF DISTRESS NOTED, WILL CONTINUE TO MONITOR
--- NOTE | 2018-11-19 11:25 | NUR ---
OUTREACH ASSOCIATE ASSIST PHYSICAL THERAPY AT BEDSIDE FOR PATIENT AMBULATION REMOVED FROM BIPAP TO MASK PLACED ON OXYMIZER AT 3 LPM SATURATION DESCENDING TO 84% THEN ASCENDING TO 95% AT COMPLETION OF AMBULATION TOLERATED THERAPY WELL OUTREACH ASSOCIATE TO MONITOR SATURATION WHILE ON OXYMIZER AT 3 LPM
--- NOTE | 2018-11-19 11:30 | NUR ---
PT AND RT AT BEDSIDE, NO SIGNS OF DISTRESS AT THIS TIME. WILL CONTINUE TO MONITOR.
[2018-11-19] MEDS: INSULIN LISPRO SLIDING SCALE 100 UNITS/ML VIAL SUBQ PRN (11:55)
--- NOTE | 2018-11-19 12:12 | NUR ---
PATIENT FINISHED EATING LUNCH, PLACED BACK ON BIPAP. O2 SAT IS 89%, RR 25, HR 78, BP 125/76, DENIES ANY PAIN. NO SIGNS OF DISTRESS NOTED. WILL CONTINUE TO MONITOR
--- NOTE | 2018-11-19 12:12 | NUR ---
CALLED DR ISMAEL CORTEZ AT [facility] [phone] NOT AVAILABLE AT THIS TIME PATIENT INFORMATION GIVEN TO ADELA ISBELL CALL BACK TO [phone]
--- NOTE | 2018-11-19 12:19 | NUR ---
CALL BACK FROM DR CECE CORTEZ REVIEWED PATIENT PHYSICAL THERAPY STATUS ON OXYMIZER AT 3 LPM SATURATION DURING AND POST THERAPY AND ABG SAMPLE REPORT NEW ORDERS: KEEP PATIENT OFF BIPAP DURING DAYS USE DURING NOCS PATIENT UP IN CHAIR 1 TO 2 HOURS A DAY
--- NOTE | 2018-11-19 12:19 | NUR ---
SPOKE WITH RT, STATES THAT PER DR. CORTEZ, KEEP BIPAP OFF TOLERATED, PLACE NASAL OXIMIZER 3LPM AND HAVE PATIENT SIT IN CHAIR 1-2 HOURS DAILY.
--- NOTE | 2018-11-19 12:25 | NUR ---
GARRETT [place]/IT INFRASTRUCTURE ENGINEER REVIEWED NEW ORDERS FROM DR ISAAK CORTEZ FOREMENTIONED RN TO PLACE ORDER FOR PATIENT UP IN TELLY 1-2 HOURS A DAY Addendum: 11/19/18 at 1237 by Baldev Hirsch RT TELLY = CHAIR
--- NOTE | 2018-11-19 13:08 | NUR ---
DR. WANG IN TO SEE PATIENT, UPDATED ON PATIENT'S CONDITION.
--- NOTE | 2018-11-19 15:27 | NUR ---
PATIENT WATCHING TV AT THIS TIME, VS STABLE, DENIES ANY PAIN. WILL CONTINUE TO MONITOR
--- NOTE | 2018-11-19 16:11 | NUR ---
PATIENT'S FAMILY AT BEDSIDE, UPDATED ON PATIENT'S CONDITION.
--- NOTE | 2018-11-19 19:09 | NUR ---
ENDORSED CONTINUITY OF CARE TO ACCOUNT RETENTION REPRESENTATIVE RNDIANNA. NO SIGNS OF DISTRESS NOTED
--- NOTE | 2018-11-19 19:11 | NUR ---
RECEIVED REPORT FROM AM SHIFT. PT A0 X 4. ABLE TO VERBALIZE NEEDS. FOLLOWS COMMANDS. POLISH SPEAKING. AFEBRILE. ON OXIMIZER 3LPM. EVEN UNLABORED BREATHING. SUCTIONS SELF VIA YAUNKER. SR ON MONITOR. DENIES CHEST PAIN. FULL LIQUID DIET. ABD SOFT, NONTENDER. F/C IN PLACE URINE CLEAR, YELLOW. RIGHT IJ DRESSING CLEAN INTACT. SKIN INTACT. NO SIGNS OF ACUTE DISTRESS. BED IN LOWEST POSITION. FAMILY AT BEDSIDE. SIDE RAIL UP X4. WILL CONTINUE TO MONITOR.
--- NOTE | 2018-11-19 20:45 | NUR ---
MORE FAMILY AT BEDSIDE AT THIS TIME. PT/ DENIES PAIN.
--- NOTE | 2018-11-19 22:25 | NUR ---
RT AT BEDSIDE AT THIS TIME. PT PUT ON BIPAP. TOLERATING WELL. WILL CONTINUE TO MONITOR
--- NOTE | 2018-11-19 23:34 | NUR ---
PT REMOVED BIPAP AT THIS TIME.
--- NOTE | 2018-11-19 23:37 | NUR ---
RT AT BEDSIDE TO RE-ADJUST BIPAP SETTINGS. PT TOLERATING WELL. WILL CONTINUE TO MONITOR.
[2018-11-20] VITALS (20 sets, daily range): BP systolic 118–172; BP diastolic 66–110
--- NOTE | 2018-11-20 01:03 | NUR ---
PT C/O PAIN 04/20. WILL ADMINISTER MORPHINE IVP
--- NOTE | 2018-11-20 03:30 | NUR ---
PT RESTLESS AT THIS TIME. CONSTANTLY REMOVES BIPAP AND SPO2 MONITORING. ADMINISTERED ATIVAN IVP
[2018-11-20] MEDS: LORazepam 2 MG/ML VIAL IM/IVP PRN ×2 (03:32→20:57)
--- NOTE | 2018-11-20 03:45 | NUR ---
DR. MEI AT BEDSIDE AT THIS TIME. UPDATED ON PTS CURRENT CONDITION. WILL FOLLOW UP ANY ADDITIONAL ORDERS. THE PATIENT PRESENTS WITH INCREASED AGITATION DESPITE THE ADMINISTRATION OF ATIVAN.
[2018-11-20] MEDS: SILDENAFIL 20 MG TAB NG SCH ×3 (04:20→20:56)
--- NOTE | 2018-11-20 05:02 | NUR ---
LAB AT BEDSIDE AT THIS TIME. BLOOD DRAW VIA CENTRAL LINE PERFORMED.
[2018-11-20 05:35] LABS: BASOPHILS % (AUTO) 0.5 % (0.0-2.0); EOSINOPHILS % (AUTO) 0.2 % (0.0-4.0); HEMATOCRIT 43.1 % (36-48); HEMOGLOBIN 13.1 g/dL (12.0-16.0); LYMPHOCYTES # (AUTO) 0.4 K/uL (2.5-16.5); LYMPHOCYTES % (AUTO) 7.5 % (20.5-51.1); MEAN CORPUSCULAR HEMOGLOBIN 25 pg (27-31); MEAN CORPUSCULAR HGB CONC 30 g/dL (33-37); MEAN CORPUSCULAR VOLUME 83.1 fL (80-94); MONOCYTES # (AUTO) 0.4 K/uL (0.8-1.0); MONOCYTES % (AUTO) 7.9 % (1.7-9.3); NEUTROPHILS % (AUTO) 83.9 % (42.2-75.2); PLATELET COUNT (AUTO) 109 K/uL (140-450); RED BLOOD CELL COUNT(AUTO) 5.18 MIL/uL (4.20-5.40); RED CELL DISTRIBUTION WIDTH 17.1 % (11.6-13.7); WHITE BLOOD COUNT (AUTO) 4.8 K/uL (4.8-10.8)
[2018-11-20 05:52] LABS: ANION GAP 2.6 (8-16); CARBON DIOXIDE 37.9 mmol/L (21-32); CREATININE 0.6 mg/dL (0.6-1.3); POTASSIUM 4.5 mmol/L (3.5-5.1)
[2018-11-20 05:56] LABS: MAGNESIUM 1.7 mg/dL (1.8-2.4); PHOSPHORUS 3.3 mg/dL (2.5-4.9)
--- NOTE | 2018-11-20 06:24 | NUR ---
PT RECEIVED BED BATH AT THIS TIME. PT TOLERATED WELL. NO SIGNS OF ACUTE DISTRESS NOTED.
--- NOTE | 2018-11-20 06:25 | NUR ---
DR. WANG AT BEDSIDE AT THIS TIME. UPDATED ON PTS CURRENT CONDITION. WILL FOLLOW UP ANY ADDITIONAL ORDERS.
[2018-11-20] MEDS ORDERED: MAG SULF 2000 MG/WATER PREMIX 50 ML IV SCH (06:55)
--- NOTE | 2018-11-20 07:17 | NUR ---
ENDORSED CARE TO INCOMING SHIFT FOR CONTINUITY OF CARE. BED IN LOWEST POSITION. CALL LIGHT WITHIN REACH. NO SIGNS OF ACUTE DISTRESS NOTED.
--- NOTE | 2018-11-20 07:18 | NUR ---
RECEIVED REPORT FROM DAMAGE INSIDE ADJUSTER NURSE AT BEDSIDE, PT IS AAOX4, SLOVAK SPEAKING ONLY, ABLE TO FOLLOW COMMANDS AND MAKE NEEDS KNOWN. VSS, DENIES PAIN, NO S/S OF DISTRESS, RHONCHI LUNG SOUNDS MARGIE, ON OXYMIZER AT 3L, O2 SAT 89%, SOBOE, COUGHING WITH YELLOW MUCOUS NOTED, DENIES CHEST PAIN, SR ON GREEN BUILDING ENERGY ENGINEER, GENERALIZED EDEMA NOTED, LARGE SOFT ABDOMEN WITH ACTIVE BOWEL SOUNDS, ON FULL LIQUID DIET AT THIS TIME, F/C IN PLACE, CLEAR YELLOW URINE NOTED VIA GRAVITY, SKIN IS WARM AND DRY TO TOUCH, NO OPEN WOUND PRESENT, BRUISE NOTED TO BUE AND DISCOLORATION TO BLE, CENTRAL LINE TO RIJ, TLC, PATENT, RUNNING D5 NS AT 40 ML/HR, ABLE TO MOVE ALL EXTREMITIES, GENERALIZED WEAKNESS NOTED, HOB ELEVATED TO 30 DEGREES, SAFETY MEASURES IN PLACE, CALL LIGHT WITHIN REACH, WILL CONTINUE TO MONITOR.
[2018-11-20] MEDS: BLOOD GLUCOSE MONITORING 1 DEV DEV FS SCH ×4 (07:54→21:29)
[2018-11-20] MEDS: ALBUTEROL SULFATE/IPRATROPIU 3 ML SOL IH SCH ×3 (07:55→18:49)
--- NOTE | 2018-11-20 08:30 | NUR ---
TRIED TO PUT PT UP TO CHAIR, PT IS DANGLED AT BEDSIDE, C/O DIZZINESS AND WEAKNESS, PUT PT BACK TO BED WITH COMFORT POSITION AT THIS TIME.
[2018-11-20] MEDS: metFORMIN 500 MG TAB NG SCH ×2 (08:31→16:46)
[2018-11-20] MEDS: LACTOBACILLUS RHAMNOSUS GG 1 EACH CAP PO SCH (08:33)
[2018-11-20] MEDS: LISINOPRIL 20 MG TAB GT SCH ×2 (08:33→21:51)
[2018-11-20] MEDS: amLODIPine 5 MG TAB NG SCH (08:33)
[2018-11-20] MEDS: PANTOPRAZOLE 40 MG INJ VIAL IVP SCH (08:36)
[2018-11-20] MEDS: FUROSEMIDE 20 MG/2 ML VIAL IVP SCH (08:36)
[2018-11-20] MEDS: methylPREDNISolone SS 40 MG/ML VIAL IVP SCH (08:36)
[2018-11-20] MEDS: ENOXAPARIN 40 MG/0.4 ML SYR SUBQ SCH (08:38)
[2018-11-20] MEDS: LEVOTHYROXINE 100 MCG IV SCH (08:52)
--- NOTE | 2018-11-20 09:46 | NUR ---
CALL BACK TO DR NEHEMIAS WANG REVIEWED ABG CRITICAL SAMPLE REPORT LEAK PATCHER TO NOTIFY DR CECE CORTEZ
--- NOTE | 2018-11-20 09:50 | NUR ---
CALLED DR CECE CORTEZ [phone] EXCHANGE AVAILABLE SANIA RECEIVED CALL PATIENT INFORMATION GIVEN EXCHANGE TO CONTACT TRINI ISBELL FOR CALL BACK
--- NOTE | 2018-11-20 09:55 | NUR ---
CALL BACK FROM DR CECE CORTEZ REVIEWED [facility] CRITICAL SAMPLE REPORT TORBO PLACE PATIENT BACK ON BIPAP WITH SAME SETTINGS OFF BIPAP FOR MEALS KEEP PATIENT IN ICU Addendum: 11/20/18 at 1014 by Baldev Hirsch RT MENTIONED TO MD OF INCREASED SOB WITH AUDIBLE EXP WHEEZING AND SPONTANEOUS EXPECTORATION OF LARGE CLEAR TO FROTHY SECRETIONS SOLUMEDROL 40mg IVP BID NO NEW ORDERS
--- NOTE | 2018-11-20 09:58 | NUR ---
CALLED DR NEHEMIAS WANG RELAY CONVERSATION WITH DR CECE CORTEZ NOTED AT 2383 FOREMENTIOND TO INCREASE SOLUMEDROL TO 40mg IVP BID
--- NOTE | 2018-11-20 10:23 | NUR ---
PATIENT PRESENTING WITH INCREASED COUGHING WITH DIFFICULTY EXUDING SECRETIONS NASO TRACHEAL SUCTIONING REQUIRED USING STERILE TECHNIQUE APPLIED LUBRICANT TO DISTAL END OF 14FR SUCTION CATHETER INSERTED CATHETER IN LEFT NASAL SEPTUM X 2 ATTEMPTS EXTRACTED LARGE THIN YELLOW SECRETIONS
[2018-11-20] MEDS ORDERED: methylPREDNISolone SS 40 MG/ML VIAL IVP SCH ×2 (10:30→21:00)
[2018-11-20] MEDS: ALBUTEROL SULFATE/IPRATROPIU 3 ML SOL IH PRN ×2 (10:35→16:21)
--- NOTE | 2018-11-20 12:00 | NUR ---
PT IS ON BIPAP, O2 SAT UP TO 92%, VSS, DENIES PAIN, DRINK A LITTLE BIT COFFEE, PT'S SON AT BEDSIDE, POSITION CHANGED FOR OFF LOAD PRESSURE.
--- NOTE | 2018-11-20 15:07 | NUR ---
FAMILY AT BEDSIDE PATIENT REQUEST OFF BIPAP FOR CONSUMPTION OF FOOD REMOVED BIPAP PLACED ON SUPPLEMENTAL OXYGEN AT 3 LPM VIA OXYMIZER
--- NOTE | 2018-11-20 15:28 | NUR ---
11/20/18 RD FOLLOW UP COMPLETED PLEASE REFER TO NUTRITION PROGRESS NOTE UNDER CARE ACTIVITY FOR ESTIMATED NUTRITION NEEDS. RD RECOMMENDATIONS: 1. CONTINUE FULL LIQUID DIET. 2. ASSIST AND ENCOURAGE PT FOR INCREASED PO INTAKE. 3. CONSIDER SWALLOW EVAL FOR APPROPRIATE DIET TEXTURES, AND CONSIDER ADVANCING PO DIET TO CCHO 60GM WITH APPROPRIATE FOOD TEXTURE PER FENDER MECHANIC TOLERATED. 4. RD TO FOLLOW-UP 2-3 DAYS, HIGH RISK. CELIA MEANS MBA, RD
[2018-11-20] MEDS: INSULIN LISPRO SLIDING SCALE 100 UNITS/ML VIAL SUBQ PRN (16:51)
--- NOTE | 2018-11-20 19:03 | NUR ---
REPORT GIVEN TO DIRECTOR BUSINESS SYSTEMS NURSE FOR CONTINUE OF CARE, PT IS IN STABLE CONDITION AT THIS TIME.
--- NOTE | 2018-11-20 19:30 | NUR ---
RECEIVED REPORT FROM MORNING RN, FABRICE, FOR CONTINUITY OF CARE. VS STABLE AT THIS TIME. PT AWAKE, ALERT AND ORIENTED X4. ABLE TO MAKE NEEDS KNOWN AND SPEAKS DIVEHI. PT ABLE TO FOLLOW COMMANDS. AFEBRILE AT THIS TIME. PERRL. DENIES PAIN. PT ABLE TO MOVE EXTREMITIES. LUNG SOUNDS CLEAR AND DIMINISHED. PT IS ON BIPAP. DENIES HAVING DIFFICULTY BREATHING. NO SOB NOTED. S1+S2 HEARD. PULSES ARE PALPABLE IN ALL EXTREMITIES. SR ON MONITOR. BS ACTIVE IN ALL QUADRANTS. ABDOMEN ROUND, SOFT AND NONDISTENDED. PT HAS BURTON CATHETER IN PLACE WITH CLEAR AND YELLOW URINE. BURTON CATHETER IS SECURED IN PLACE. PT HAS RIGHT IJ CENTRAL LINE TRIPLE LUMEN IN PLACE. RECEIVED PT ON D5 NS AT 40ML/HR. SCDS ARE IN PLACE. PT DENIES ANY DISCOMFORT AT THIS TIME. CALL LIGHT WITHIN REACH. BED AT LOWEST POSSIBLE POSITION. ALL SAFETY PRECAUTIONS ARE IN PLACE. WILL CONTINUE TO MONITOR PT.
--- NOTE | 2018-11-20 20:45 | NUR ---
DR. MEI CAME IN TO SEE PT. UPDATE REGARDING PT CONDITION, EPISODE OF CONFUSION SUCH SEEING A CAT IN THE UNIT PER FAMILY. DR. MEI WANTED TO MAKE SURE TO KEEP PT AT 45 DEGREES ANGLE
--- NOTE | 2018-11-20 22:10 | NUR ---
VS STABLE AT THIS TIME. NO CHANGE IN PT'S CONDITION. PT STILL ON BIPAP. BURTON CATHETER HAS ADEQUATE URINARY OUTPUT. ALL SAFETY PRECAUTIONS ARE IN PLACE.
[2018-11-20] MEDS: DEXT 5% /NACL 0.9% 1,000 ML IV SCH (22:30)
--- NOTE | 2018-11-20 23:19 | NUR ---
UNABLE TO PERFORM INCENTIVE SPIROMETER, PATIENT ON BIPAP CONTINUOUSLY AT THIS TIME
[2018-11-21] VITALS (20 sets, daily range): BP systolic 100–163; BP diastolic 62–93
--- NOTE | 2018-11-21 00:20 | NUR ---
RESPIRATIONS ARE EVEN AND UNLABORED. VS STABLE. PT AFEBRILE. PT'S EYES ARE CLOSED. DOES NOT APPEAR TO BE EXPERIENCING ANY DISCOMFORT AT THIS TIME.
--- NOTE | 2018-11-21 02:14 | NUR ---
STILL NO CHANGE IN CONDITION AT THIS TIME. VS REMAINS STABLE. NO SOB NOTED. SR ON MONITOR.
--- NOTE | 2018-11-21 04:40 | NUR ---
PM CARE PROVIDED TO PT. ABLE TO HELP IN TURNING. LINENS ARE CHANGED. BURTON CATHETER CARE PROVIDED.
[2018-11-21] MEDS: LORazepam 2 MG/ML VIAL IM/IVP PRN ×2 (05:11→05:15)
--- NOTE | 2018-11-21 05:36 | NUR ---
CALLED RESIDENT DOCTOR, SPOKE WITH DR. MEI, INFORMED HER REGARDING MORNING ABG RESULT FOR PATIENT. RECEIVED NO NEW ORDERS AT THIS TIME BUT TO KEEP PT ON BIPAP.
--- NOTE | 2018-11-21 05:38 | NUR ---
PT BEING UNCOOPERATIVE. CONSTANTLY, REMOVING O2 SAT ON LEFT FINGER. ALREADY EXPLAINED BUT PT STILL INSIST ON NOT HAVING IT ON.
[2018-11-21] MEDS: SILDENAFIL 20 MG TAB NG SCH ×3 (05:39→21:08)
[2018-11-21 05:52] LABS: BASOPHILS % (AUTO) 0.1 % (0.0-2.0); HEMATOCRIT 43.2 % (36-48); HEMOGLOBIN 13.1 g/dL (12.0-16.0); LYMPHOCYTES # (AUTO) 0.3 K/uL (2.5-16.5); LYMPHOCYTES % (AUTO) 7.5 % (20.5-51.1); MEAN CORPUSCULAR HEMOGLOBIN 25 pg (27-31); MEAN CORPUSCULAR HGB CONC 30 g/dL (33-37); MEAN CORPUSCULAR VOLUME 82.8 fL (80-94); MONOCYTES # (AUTO) 0.3 K/uL (0.8-1.0); MONOCYTES % (AUTO) 9.2 % (1.7-9.3); NEUTROPHILS % (AUTO) 83.2 % (42.2-75.2); PLATELET COUNT (AUTO) 112 K/uL (140-450); RED BLOOD CELL COUNT(AUTO) 5.22 MIL/uL (4.20-5.40); RED CELL DISTRIBUTION WIDTH 17.2 % (11.6-13.7); WHITE BLOOD COUNT (AUTO) 3.6 K/uL (4.8-10.8)
[2018-11-21 06:08] LABS: ANION GAP 2.3 (8-16); CARBON DIOXIDE 39.9 mmol/L (21-32); CREATININE 0.6 mg/dL (0.6-1.3); POTASSIUM 4.2 mmol/L (3.5-5.1)
[2018-11-21 06:11] LABS: MAGNESIUM 1.7 mg/dL (1.8-2.4); PHOSPHORUS 3.3 mg/dL (2.5-4.9)
--- NOTE | 2018-11-21 06:34 | NUR ---
DR. WANG AT BEDSIDE AT THIS TIME. INFORMED HER REGARDING PT'S CONDITION.
[2018-11-21] MEDS: ALBUTEROL SULFATE/IPRATROPIU 3 ML SOL IH SCH ×3 (07:06→19:59)
[2018-11-21] MEDS: BLOOD GLUCOSE MONITORING 1 DEV DEV FS SCH ×4 (07:14→21:07)
--- NOTE | 2018-11-21 07:15 | NUR ---
RECEIVED REPORT FROM SUPERVISOR OPENING AND PICKING NURSE AT BEDSIDE, PT IS ASLEEP IN BED, EASY TO WAKE UP, ABLE TO FOLLOW COMMANDS AND MAKE NEEDS KNOWN, VSS, DENIES PAIN, NO S/S OF DISTRESS, RHONCHI LUNG SOUNDS MARGIE, ON BIBPAP 16/5, R 20, FIO 32%, O2 SAT 95%, SOBOE, COUGHING WITH YELLOW MUCOUS NOTED, DENIES CHEST PAIN, SR ON MANAGEMENT INSTRUCTOR, GENERALIZED EDEMA NOTED, LARGE SOFT ABDOMEN WITH ACTIVE BOWEL SOUNDS, ON FULL LIQUID DIET AT THIS TIME, F/C IN PLACE, CLEAR YELLOW URINE NOTED VIA GRAVITY, SKIN IS WARM AND DRY TO TOUCH, NO OPEN WOUND PRESENT, BRUISE NOTED TO BUE AND DISCOLORATION TO BLE, CENTRAL LINE TO RIJ, TLC, PATENT, RUNNING D5 NS AT 40 ML/HR, ABLE TO MOVE ALL EXTREMITIES, GENERALIZED WEAKNESS NOTED, HOB ELEVATED TO 45 DEGREES, SAFETY MEASURES IN PLACE, CALL LIGHT WITHIN REACH, WILL CONTINUE TO MONITOR.
--- NOTE | 2018-11-21 07:21 | NUR ---
RECEIVED PT ON BIPAP 16/, R20, FIO2 32%. BIPAP ALARMS ON AND FUNCTIONING. PT IS ASLEEP AT THIS TIME NOT IN ANY DISTRESS. WILL CONTINUE TO MONITOR.
--- NOTE | 2018-11-21 08:00 | NUR ---
DR. CORTEZ IN TO SEE PATIENT, UPDATED ON PATIENT'S CONDITION. WILL FOLLOW UP WITH NEW ORDERS. .
--- NOTE | 2018-11-21 08:15 | NUR ---
FAMILY MEMBERS AT BEDSIDE, DR. CORTEZ SPOKE TO THE FAMILY MEMBERS REGARDING PT'S CONDITION.
[2018-11-21] MEDS ORDERED: MAG SULF 2000 MG/WATER PREMIX 50 ML IV SCH (08:30)
[2018-11-21] MEDS ORDERED: MAG SULF 2000 MG/WATER PREMIX 100 ML IV ONE (09:00)
--- NOTE | 2018-11-21 09:03 | NUR ---
FIO2 INCREASED TO 36% DUE TO SPO2 DECREASING TO LOW 80'S. NURSE MADE AWARE. STATES TO KEEP SPO2 88-92%. WILL CONTINUE TO MONITOR. Addendum: 11/21/18 at 0905 by Dank Diaz RT 0846 FIO2 INCREASED.
[2018-11-21] MEDS: PANTOPRAZOLE 40 MG INJ VIAL IVP SCH (09:11)
[2018-11-21] MEDS: FUROSEMIDE 20 MG/2 ML VIAL IVP SCH (09:12)
[2018-11-21] MEDS: LISINOPRIL 20 MG TAB GT SCH ×2 (09:12→21:45)
[2018-11-21] MEDS: LACTOBACILLUS RHAMNOSUS GG 1 EACH CAP PO SCH (09:12)
[2018-11-21] MEDS: metFORMIN 500 MG TAB NG SCH ×2 (09:12→16:30)
[2018-11-21] MEDS: amLODIPine 5 MG TAB NG SCH (09:13)
[2018-11-21] MEDS: LEVOTHYROXINE 100 MCG IV SCH (09:14)
[2018-11-21] MEDS: ENOXAPARIN 40 MG/0.4 ML SYR SUBQ SCH (09:15)
[2018-11-21] MEDS ORDERED: methylPREDNISolone SS 40 MG/ML VIAL IVP SCH (09:30)
--- NOTE | 2018-11-21 09:51 | NUR ---
NURSE REMOVED PT FROM BIPAP FOR PT TO EAT BREAKFAST. PT NOT IN ANY DISTRESS AT THIS TIME. AWAKE AND ALERT IN BED. PT PLACED ON 3L OXYMIZER. WILL CONTINUE TO MONITOR.
--- NOTE | 2018-11-21 10:00 | NUR ---
PT IS AWAKE, ALERT, OFFERED FOOD, PT IS ABLE TO EAT WITH OXYMIZER AT 3L AT THIS TIME.
--- NOTE | 2018-11-21 10:49 | NUR ---
PT BACK ON BIPAP WITH DOCUMENTED BIPAP SETTINGS. PROTECTA GEL PLACED UNDER MASK FOR SKIN PROTECTION. PT AWAKE IN BED AT THIS TIME. WILL CONTINUE TO MONITOR.
--- NOTE | 2018-11-21 11:35 | NUR ---
REQUESTS PT BE GIVEN A BREAK FROM WEARING BIPAP. PT PLACED ON 3L OXYMIZER. PT NOT SOB AT THIS TIME. FAMILY IS BEDSIDE. WILL CONTINUE TO MONITOR.
--- NOTE | 2018-11-21 12:00 | NUR ---
NO S/S OF DISTRESS, PT IS ON OXYMIZER AT 3L, DENIES PAIN, VSS, REPOSITION PT FOR COMFORT, LUNCH OFFERED, PT'S FAMILY MEMBERS AT BEDSIDE, ASSISTING WITH PT WITH LUNCH.
--- NOTE | 2018-11-21 12:54 | NUR ---
CHECKED IN ON PT WATCHING TV ON OXYMIZER SPO2 91% NOT IN ANY DISTRESS AT THIS TIME. NURSE AWARE OF PT STATUS. WILL CONTINUE TO MONITOR.
--- NOTE | 2018-11-21 14:00 | NUR ---
NO S/S OF DISTRESS, VSS, DENIES PAIN, PM CARE AND F/C CARE PROVIDED, POSITION CHANGED FOR OFF LOAD PRESSURE.
[2018-11-21] MEDS ORDERED: FUROSEMIDE 20 MG/2 ML VIAL IVP SCH (15:30)
--- NOTE | 2018-11-21 16:00 | NUR ---
NO S/S OF DISTRESS, DENIES PAIN, VSS, POSITION CHANGED FOR OFF LOAD PRESSURE.
--- NOTE | 2018-11-21 16:08 | NUR ---
ABG RESULTS GIVEN TO WHO SPOKE TO OVER PHONE. PT STATUS UPDATED WITH PHYSICIANS. WILL CONTINUE TO MONITOR.
[2018-11-21] MEDS ORDERED: ALPRAZolam 0.5 MG TAB PO PRN (16:10)
--- NOTE | 2018-11-21 18:00 | NUR ---
PT IS RESTING IN BED, NO S/S OF DISTRESS, VSS, DENIES PAIN, POSITION CHANGED FOR OFF LOAD PRESSURE.
--- NOTE | 2018-11-21 19:13 | NUR ---
REPORT GIVEN TO GRINDER LAP FOR CONTINUE OF CARE.
--- NOTE | 2018-11-21 19:30 | NUR ---
RECEIVED REPORT FROM MORNING RN, FABRICE, FOR CONTINUITY OF CARE. VS STABLE AT THIS TIME. PT AWAKE, ALERT AND ORIENTED. ABLE TO MAKE NEEDS KNOWN AND SPEAKS AFGHAN. PT ABLE TO FOLLOW COMMANDS. AFEBRILE AT THIS TIME. PERRL. DENIES PAIN. PT ABLE TO MOVE EXTREMITIES. LUNG SOUNDS CLEAR. RECEIVED PT ON OXIMIZER. DENIES HAVING DIFFICULTY BREATHING. NO SOB NOTED. PT TO BE PUT ON BIPAP BEFORE SLEEPING. S1+S2 HEARD. PULSES ARE PALPABLE IN ALL EXTREMITIES. SR ON MONITOR. BS ACTIVE IN ALL QUADRANTS. ABDOMEN ROUND, SOFT AND NONDISTENDED. PT HAS BURTON CATHETER IN PLACE WITH CLEAR AND YELLOW URINE. BURTON CATHETER IS SECURED IN PLACE. PT HAS RIGHT IJ CENTRAL LINE TRIPLE LUMEN IN PLACE. RECEIVED PT ON D5 NS TKO. BED AT LOWEST POSSIBLE POSITION. ALL SAFETY PRECAUTIONS ARE IN PLACE. CALL LIGHT WITHIN REACH. WILL CONTINUE TO MONITOR PT.
[2018-11-21] MEDS: methylPREDNISolone SS 40 MG/ML VIAL IVP SCH (21:09)
--- NOTE | 2018-11-21 21:30 | NUR ---
PT REMOVED ON BIPAP PER HER REQUEST. PT WANTED TO EAT JELLO AT THIS TIME. PUT PT ON OXIMIZER WITH OXYGEN SATURATION CURRENTLY AT 97%
--- NOTE | 2018-11-21 22:40 | NUR ---
PATIENT STILL ON 3LPM OXYMIZER W/ FAMILY AT BESIDE SINCE 2129. NO RESP DISTRESS NOTED
--- NOTE | 2018-11-21 23:20 | NUR ---
PT PUT BACK ON BIPAP AT THIS TIME. OXYGEN SATURATION AT 90%, NO SIGNS OF RESPIRATORY DISTRESS NOTED. NO SOB. PT STATES THAT SHE IS FEELING OKAY AT THIS TIME. PT COOPERATIVE AND ABLE TO MAKE NEEDS KNOWN
[2018-11-22] VITALS (11 sets, daily range): BP systolic 94–146; BP diastolic 55–106
--- NOTE | 2018-11-22 01:40 | NUR ---
VS STABLE. SR ON MONITOR. NO CHANGE IN PT'S CONDITION. RESPIRATIONS REMAIN EVEN AND UNLABORED. PT DENIES EXPERIENCING ANY PAIN OR ANY DISCOMFORT AT THIS TIME.
--- NOTE | 2018-11-22 03:05 | NUR ---
PT REMAINS ON BIPAP. RESPIRATIONS ARE EVEN AND UNLABORED WITH OXYGEN SATURATION AT 91% AT THIS TIME. SR ON MONITOR. OTHER VS WNL. PT HAS ADEQUATE URINARY OUTPUT AT THIS TIME.
--- NOTE | 2018-11-22 03:39 | NUR ---
PT WAS TURNED AND REPOSITIONED. OFFERED PM CARE AT THIS TIME BUT PT REFUSED.
--- NOTE | 2018-11-22 04:20 | NUR ---
OFFERED AGAIN TO CLEAN UP PT AND CHANGE LINENS. PT REFUSED AT THIS TIME. WILL TRY AGAIN
[2018-11-22] MEDS: SILDENAFIL 20 MG TAB NG SCH ×3 (04:36→21:17)
[2018-11-22 06:37] LABS: BASOPHILS % (AUTO) 0.1 % (0.0-2.0); CREATININE 0.6 mg/dL (0.6-1.3); HEMATOCRIT 43.6 % (36-48); HEMOGLOBIN 13.2 g/dL (12.0-16.0); LYMPHOCYTES # (AUTO) 0.4 K/uL (2.5-16.5); LYMPHOCYTES % (AUTO) 9.8 % (20.5-51.1); MEAN CORPUSCULAR HEMOGLOBIN 25 pg (27-31); MEAN CORPUSCULAR HGB CONC 30 g/dL (33-37); MEAN CORPUSCULAR VOLUME 83.9 fL (80-94); MONOCYTES # (AUTO) 0.4 K/uL (0.8-1.0); MONOCYTES % (AUTO) 10.2 % (1.7-9.3); NEUTROPHILS # (AUTO) 3.4 K/uL (1.8-7.7); NEUTROPHILS % (AUTO) 79.9 % (42.2-75.2); PLATELET COUNT (AUTO) 106 K/uL (140-450); RED CELL DISTRIBUTION WIDTH 17.6 % (11.6-13.7); WHITE BLOOD COUNT (AUTO) 4.2 K/uL (4.8-10.8)
[2018-11-22] MEDS: ALBUTEROL SULFATE/IPRATROPIU 3 ML SOL IH SCH ×3 (06:56→19:25)
--- NOTE | 2018-11-22 06:56 | NUR ---
PT REMOVED FROM BIPAP AND PLACED ON 3L OXYMIZER, SPO2 89% NURSE MADE AWARE. WILL CONTINUE TO MONITOR.
--- NOTE | 2018-11-22 07:03 | NUR ---
PT IS AWAKE AND ALERT RESPONDS WHEN SPOKEN TO. WILL CONTINUE TO MONITOR.
[2018-11-22] MEDS: BLOOD GLUCOSE MONITORING 1 DEV DEV FS SCH ×4 (07:16→21:21)
--- NOTE | 2018-11-22 07:20 | NUR ---
RECEIVED REPORT FROM CARDIAC TECHNICIAN RN AT BEDSIDE, PT IS AAOX4, LIBYAN SPEAKING ONLY, ABLE TO FOLLOW COMMANDS AND MAKE NEEDS KNOWN, VSS, DENIES PAIN, NO S/S OF DISTRESS, WHEEZING LUNG SOUNDS MARGIE, ON OXYMIZER AT 3L, O2 SAT 91%, SOBOE, COUGHING WITH YELLOW MUCOUS NOTED, DENIES CHEST PAIN, SR ON WATER MAINTENANCE SUPERVISOR, LARGE SOFT ABDOMEN WITH ACTIVE BOWEL SOUNDS, F/C IN PLACE, CLEAR YELLOW URINE NOTED VIA GRAVITY, SKIN IS WARM AND DRY TO TOUCH, NO OPEN WOUND PRESENT, BRUISE NOTED TO BUE AND DISCOLORATION TO BLE, CENTRAL LINE TO RIJ, TLC, PATENT, KVO, ABLE TO MOVE ALL EXTREMITIES, SLIGHT WEAKNESS NOTED, HOB ELEVATED TO 45 DEGREES, SAFETY MEASURES IN PLACE, CALL LIGHT WITHIN REACH, WILL CONTINUE TO MONITOR.
[2018-11-22 07:24] LABS: CARBON DIOXIDE 43.4 mmol/L (21-32)
[2018-11-22 07:34] LABS: ANION GAP 4.1 (8-16); POTASSIUM 4.5 mmol/L (3.5-5.1)
[2018-11-22 07:37] LABS: MAGNESIUM 1.7 mg/dL (1.8-2.4); PHOSPHORUS 4.4 mg/dL (2.5-4.9)
--- NOTE | 2018-11-22 07:50 | NUR ---
ASSIST PT WITH BREAKFAST, PT IS ABLE TO EAT 50% OF BREAKFAST AT THIS TIME.
[2018-11-22] MEDS: LISINOPRIL 20 MG TAB GT SCH ×2 (08:11→21:18)
[2018-11-22] MEDS: LACTOBACILLUS RHAMNOSUS GG 1 EACH CAP PO SCH (08:11)
[2018-11-22] MEDS: methylPREDNISolone SS 40 MG/ML VIAL IVP SCH ×2 (08:11→21:17)
[2018-11-22] MEDS: PANTOPRAZOLE 40 MG INJ VIAL IVP SCH (08:11)
[2018-11-22] MEDS: amLODIPine 5 MG TAB NG SCH (08:12)
[2018-11-22] MEDS: FUROSEMIDE 20 MG/2 ML VIAL IVP SCH (08:12)
[2018-11-22] MEDS: metFORMIN 500 MG TAB NG SCH ×2 (08:12→17:10)
[2018-11-22] MEDS: ENOXAPARIN 40 MG/0.4 ML SYR SUBQ SCH (08:13)
[2018-11-22] MEDS: LEVOTHYROXINE 100 MCG IV SCH (08:15)
[2018-11-22] MEDS ORDERED: MAG SULF 2000 MG/WATER PREMIX 100 ML IV SCH (08:30)
--- NOTE | 2018-11-22 08:38 | NUR ---
ABG RESULTS GIVEN TO . PHYSICIAN SPOKE TO GIVING HIM ABG RESULTS OVER THE PHONE. NO NEW ORDERS AT THIS TIME. WILL CONTINUE TO MONITOR PT AND PT MENTAL STATUS.
--- NOTE | 2018-11-22 08:55 | NUR ---
DR. DOAN CAME IN TO SEE PT AT BEDSIDE, UPDATED PT'S CONDITION, WILL FOLLOW UP WITH NEW ORDERS.
--- NOTE | 2018-11-22 09:00 | NUR ---
SCHEDULED MEDICATION GIVEN, EDUCATED PT ON MEDICATION INDICATION AND SIDE EFFECTS, PT VERBALIZED UNDERSTANDING.
[2018-11-22] MEDS: acetaZOLAMIDE 250 MG TAB PO SCH ×2 (09:40→21:33)
[2018-11-22] MEDS ORDERED: PROBIOTIC SCREEN 1 EA MISC MC PRN (10:35)
--- NOTE | 2018-11-22 11:12 | NUR ---
PT PLACED ON BIPAP DUE TO PT TACHYPNEIC. PT PLACED ON BIPAP SETTINGS 16/5, R20, FIO2 40%. BIPAP ALARMS ON AND FUNCTIONING. PT TOLERATING WELL AT THIS TIME . WILL CONTINUE TO MONITOR. Addendum: 11/22/18 at 1116 by Dank Diaz RT PROTECTA GEL PLACED UNDER MASK FOR SKIN PROTECTION.
--- NOTE | 2018-11-22 11:28 | NUR ---
CALLED [facility] AND WAS TOLD THAT OF 11/12/18 THAT THEY WERE NO LONGER THE IPA AND TO CALL JOANN. ICALLED JOANN AND SPOKE WITH MICHELET. SHE SAID THE IPA IS [facility]. PHONE [phone] I CALLED AND SPOKE WITH AME. SHE SAID TO FAX CLINICALS TO HER AND THE ORDER FOR BIPAP TO [phone]. NO BIOTECHNICIAN ASSIGNED YET. PHONE TO [facility] IS [phone]. SHE ALSO SAID THE PCP IS DR. DYANA ONEIL [phone].
--- NOTE | 2018-11-22 12:00 | NUR ---
NO S/S OF DISTRESS, VSS, DENIES PAIN, SERVICE LUNCH WITH ASSIST.
--- NOTE | 2018-11-22 13:08 | NUR ---
CALLED [facility] ([facility] AND MADE A FOLLOW UP APPOINTMENT WITH DR. ROBERTSON. PHONE [phone]. APPOINTMENT IS Nov AT 2:30P.M. ADDRESS, [address] [address] PHONE [phone]. SPOKE WITH BRIT. FAXED CLINICALS TO THEM AT [phone]. Addendum: 11/22/18 at 1311 by Mirtha Aviles CM GAVE APPOINTMENT TO THE PATIENT.
--- NOTE | 2018-11-22 14:00 | NUR ---
RECEIVED PT ON 3L OXYMIZER NURSE REMOVED PT FROM BIPAP TO EAT. PT TOLERATING OXYMIZER WELL PT NOT IN ANY DISTRESS. BREATHING TX ADMINISTERED. WILL CONTINUE TO MONITOR.
--- NOTE | 2018-11-22 15:24 | NUR ---
[facility]IRA [facility] AND SPOKE WITH FOREST. INFORMED HER I NEEDED A LIST A SNF'S. SHE SAID NO CM YET ALSO SHE DIDN'T FIND THE INFORMATION, CLINICALS, I SENT EARLIER. SHE ASKED ME TO REFAX TO [phone], WHICH I DID.
--- NOTE | 2018-11-22 16:00 | NUR ---
PT IS RESTING IN BED, VSS, DENIES PAIN, PM CARE AND F/C CARE PROVIDED, POSITION CHANGED FOR OFF LOAD PRESSURE.
--- NOTE | 2018-11-22 16:09 | NUR ---
NUTRITION EDUCATION ON DIABETES AND WEIGHT MANAGEMENT WAS GIVEN TO PATIENT. NO FAMILY MEMBERS WERE PRESENT. EDUCATIONAL HANDOUTS WERE LEFT AT PATIENT'S BEDSIDE TABLE. PT WAS RECEPTIVE TO EDUCATION AND SEEMED MOTIVATED TO IMPLEMENT DIETARY CHANGES AT HOME. YAIR BOYD RD
--- NOTE | 2018-11-22 17:41 | NUR ---
PT REMAINS ON 3L OXYMIZER NOT IN ANY DISTRESS IN BED WATCHING TV. SPO2 88%.
--- NOTE | 2018-11-22 18:00 | NUR ---
PT IS RESTING IN BED, NO S/S OF DISTRESS, VSS, DENIES PAIN, POSITION CHANGED FOR OFF LOAD PRESSURE. Addendum: 11/22/18 at 1828 by Bala Nava RN WRONG PT DOCUMENTATION.
--- NOTE | 2018-11-22 18:05 | NUR ---
PT TRANSFERRED TO ROOM 121 B VIA BED ACCOMPANIED WITH RN AND FAMILY MEMBERS, ALL BELONGS GOES WITH PT, REPORT GIVEN TO SILVER SHERIFF AT BEDSIDE, PT IS IN STABLE CONDITION AT THIS TIME.
--- NOTE | 2018-11-22 18:24 | NUR ---
DR. WEAVER CAME IN TO SEE PT AT BEDSIDE, UPDATED CONDITION, WILL FOLLOW UP WITH NEW ORDERS. Addendum: 11/22/18 at 1828 by Bala Nava RN WRONG PT DOCUMENTATION.
--- NOTE | 2018-11-22 19:35 | NUR ---
RECEIVED PT FROM AM NURSE. AWAKE, ALERT O X 4. ABLE TO FOLLOW COMMANDS AND MAKE NEEDS KNOWN, WHEEZING LUNG SOUNDS BILATERAL GODINEZ, ON OXYMIZER AT 3L, O2 SAT 96%, WITH COUGHING WITH YELLOW MUCOUS NOTED. DENIES CHEST PAIN, LARGE SOFT ABDOMEN WITH ACTIVE BOWEL SOUNDS, F/C IN PLACE, CLEAR YELLOW URINE NOTED VIA GRAVITY, SKIN IS WARM AND DRY TO TOUCH, NO OPEN WOUND PRESENT, BRUISE NOTED TO BUE AND DISCOLORATION TO BLE, CENTRAL LINE TO RIJ, TRIPLE LUMEN, PATENT AT SALINE LOCK. HOB ELEVATED TO 45 DEGREES, SAFETY MEASURES IN PLACE, CALL LIGHT WITHIN REACH, WILL CONTINUE TO MONITOR.
--- NOTE | 2018-11-22 21:40 | NUR ---
PT CLEANED WITH BM SMEAR NOTED ON CHUX. CLEANED PT. TURNED AND SPONGE BATH GIVEN. NO SIGNS AND SYMPTOMS OF DISTRESS. NO COMPLAINTS OF PAIN. WILL CONTINUE TO MONITOR.
[2018-11-22] MEDS ORDERED: KETOROLAC 15 MG/ML VIAL IM ONE (23:35)
[2018-11-23] VITALS: BP 115/65
--- NOTE | 2018-11-23 01:05 | NUR ---
PT IS NOT COMFORTABLE WITH BIPAP. PT ANXIOUS AND CANT SLEEP. RN AWARE. NO SOB OR DISTRESS NOTED. WILL CONTINUE TO MONITOR.
--- NOTE | 2018-11-23 01:29 | NUR ---
PT ANXIOUS GIVEN HER XANAX, DR. MEI AWARE.
--- NOTE | 2018-11-23 02:43 | NUR ---
PT IS ASLEEP COMFORTABLY. NO SOB OR DISTRESS NOTED. WILL CONTINUE TO MONITOR.
[2018-11-23 04:00] VITALS: BP 111/82
--- NOTE | 2018-11-23 05:30 | NUR ---
late entry for blood glucose: 109mg/dl. no coverage needed
[2018-11-23] MEDS: SILDENAFIL 20 MG TAB NG SCH ×2 (05:51→12:32)
[2018-11-23] MEDS: ALBUTEROL SULFATE/IPRATROPIU 3 ML SOL IH SCH ×3 (06:45→19:41)
--- NOTE | 2018-11-23 06:45 | NUR ---
RECEIVED PT ON VELASQUEZ V60 ON DOCUMENTED SETTINGS ALARMS ARE ON AND AUDIBLE PT IN HF ASLEEP WEARING F\F MASK SIZE MED GEL UNDER MASK,BS DIMINISHED, HHN GVIEN I\L WITH 3 MG DUONEB, CONT POX IN PLACE BIPAP PLUGGED INTO RED OUTLET
--- NOTE | 2018-11-23 06:56 | NUR ---
PT REQUEST BIPAP BE REMOVED PLACED 3 L OXYMIZER SPIO2 90 PT HAS REDNESS LEFT SIDE OF NOSE
[2018-11-23 07:06] LABS: BASOPHILS % (AUTO) 0.1 % (0.0-2.0); EOSINOPHILS % (AUTO) 0.2 % (0.0-4.0); HEMATOCRIT 44.5 % (36-48); HEMOGLOBIN 13.4 g/dL (12.0-16.0); LYMPHOCYTES # (AUTO) 0.5 K/uL (2.5-16.5); LYMPHOCYTES % (AUTO) 12.5 % (20.5-51.1); MEAN CORPUSCULAR HEMOGLOBIN 25 pg (27-31); MEAN CORPUSCULAR HGB CONC 30 g/dL (33-37); MEAN CORPUSCULAR VOLUME 84.3 fL (80-94); MONOCYTES # (AUTO) 0.3 K/uL (0.8-1.0); MONOCYTES % (AUTO) 6.5 % (1.7-9.3); NEUTROPHILS # (AUTO) 3.2 K/uL (1.8-7.7); NEUTROPHILS % (AUTO) 80.7 % (42.2-75.2); PLATELET COUNT (AUTO) 99 K/uL (140-450); RED BLOOD CELL COUNT(AUTO) 5.28 MIL/uL (4.20-5.40); RED CELL DISTRIBUTION WIDTH 17.6 % (11.6-13.7)
[2018-11-23 07:14] LABS: ANION GAP 6.2 (8-16); CARBON DIOXIDE 39.9 mmol/L (21-32); CREATININE 0.6 mg/dL (0.6-1.3); POTASSIUM 4.1 mmol/L (3.5-5.1)
[2018-11-23 07:21] LABS: MAGNESIUM 1.9 mg/dL (1.8-2.4); PHOSPHORUS 4.4 mg/dL (2.5-4.9)
--- NOTE | 2018-11-23 07:23 | NUR ---
ENDORSED PT TO NEXT SHIFT NURSE FOR CONTINUITY OF CARE.
[2018-11-23] MEDS: BLOOD GLUCOSE MONITORING 1 DEV DEV FS SCH ×3 (07:30→17:25)
--- NOTE | 2018-11-23 07:35 | NUR ---
RECEIVED REPORT FROM METAL MOULDER NURSE. PATIENT LYING DOWN IN BED WATCHING TV. NO DISTRESS NOTED. DENIES ANY PAIN. AAOX4, CALM, COOPERATIVE, SKIN COLOR APPROPRIATE TO ETHNICITY, WARM TO TOUCH. SKIN IS INTACT. RESPIRATIONS EVEN, UNLABORED, ON 3L O2 VIA OXIMIZER WITH O2 SAT AT 93%. LUNGS CTA ON ALL LOBES. ABDOMEN SOFT, MORBIDLY OBESE. REVIEWED PLAN OF CARE WITH PATIENT. PATIENT VERBALIZED UNDERSTANDING. SAFETY MEASURES IN PLACE, CALL LIGHT WITHIN REACH. WILL CONTINUE TO MONITOR.
[2018-11-23 08:00] VITALS: BP_SYST 135; BP_SYST 140; BP_DIAS 62; BP_DIAS 78
--- NOTE | 2018-11-23 08:48 | NUR ---
CALLED [facility] AND LEFT MESSAGE TO CM TO CALL ME ABOUT SNF PLACEMENT. FAXED INQUIRY TO MARISABEL MOLINA/RUPAL GARZA [phone].
[2018-11-23] MEDS: LACTOBACILLUS RHAMNOSUS GG 1 EACH CAP PO SCH (08:58)
[2018-11-23] MEDS: metFORMIN 500 MG TAB NG SCH ×2 (08:58→17:25)
[2018-11-23] MEDS: LISINOPRIL 20 MG TAB GT SCH (08:58)
[2018-11-23] MEDS: methylPREDNISolone SS 40 MG/ML VIAL IVP SCH (08:59)
[2018-11-23] MEDS: acetaZOLAMIDE 250 MG TAB PO SCH (08:59)
[2018-11-23] MEDS: PANTOPRAZOLE 40 MG INJ VIAL IVP SCH (08:59)
[2018-11-23] MEDS: amLODIPine 5 MG TAB NG SCH (08:59)
[2018-11-23] MEDS: ENOXAPARIN 40 MG/0.4 ML SYR SUBQ SCH (09:00)
[2018-11-23] MEDS: LEVOTHYROXINE 100 MCG IV SCH (09:04)
--- NOTE | 2018-11-23 09:14 | NUR ---
PATIENT SITTING IN BED WATCHING TV. NO DISTRESS NOTED. SCHEDULED MEDICATIONS DUE GIVEN. WILL CONTINUE TO MONITOR.
[2018-11-23] MEDS ORDERED: LISI-420 GT (10:41)
[2018-11-23] MEDS ORDERED: FAMO-90 PO (10:41)
[2018-11-23] MEDS ORDERED: AMLO5TAB6 PO (10:41)
[2018-11-23] MEDS ORDERED: SILD20TA NG (10:41)
[2018-11-23] MEDS ORDERED: METH40PD15 IVP (10:41)
[2018-11-23] MEDS ORDERED: METF500T NG (10:41)
[2018-11-23] MEDS ORDERED: DOCU-299 PO (10:41)
--- NOTE | 2018-11-23 11:40 | NUR ---
RECEIVED A CALL FROM RODRÍGUEZ FROM [place]. SHE WILL BE THE CM FOR THIS PATIENT PHONE [phone]. SHE SAID SHE WOULD NEED THE ORDER FOR A BARIATRIC BED FOR THIS PATIENT FOR THE SNF AND THE BIPAP ORDER ON THE PRESCRIPTION PAD WITH THE SETTINGS. I INFORMED DR. WANG.
[2018-11-23 12:00] VITALS: BP 140/78
--- NOTE | 2018-11-23 12:27 | NUR ---
11/22/18 RD FOLLOW UP PLEASE REFER TO NUTRITION ASSESSMENT UNDER CARE ACTIVITY FOR ESTIMATED NUTRITIONAL NEEDS. RD RECOMMENDATIONS: 1. CONTINUE FULL LIQUID DIET. 2. ASSIST AND ENCOURAGE PT FOR INCREASED PO INTAKE. 3. CONSIDER SWALLOW EVAL FOR APPROPRIATE DIET TEXTURES, AND CONSIDER ADVANCING PO DIET TO CCHO 60GM HIGH FIBER WITH APPROPRIATE FOOD TEXTURE PER VP INFORMATION TECHNOLOGY TOLERATED. 4. RD TO FOLLOW-UP 3-5 DAYS, MODERATE RISK. YAIR BOYD, RD
--- NOTE | 2018-11-23 12:33 | NUR ---
PATIENT LYING DOWN IN BED WATCHING TV. NO DISTRESS NOTED. SCHEDULED MEDICATIONS DUE GIVEN. WILL CONTINUE TO MONITOR.
--- NOTE | 2018-11-23 12:50 | NUR ---
FAXED ORDER FOR BARIATRIC BED AND CPAP ORDER TO [facility] [phone]. PHONE RODRÍGUEZ [phone]
--- NOTE | 2018-11-23 14:32 | NUR ---
SPOKE WITH SHANELL FROM [facility]. SHE SAID SHE WAS CONTACTED BY RODRÍGUEZ FROM [place]. THEY ARE REVIEWING THE INFORMATION. SPOKE WITH RODRÍGUEZ . SHE WILL CALL ME WHEN SHE HAS PLACEMENT.
--- NOTE | 2018-11-23 15:14 | NUR ---
RECEIVED CALL FROM RODRÍGUEZ FROM [place]. SHE SAID THE PATIENT HAS BEEN ACCEPTED AT [facility]. SHE WILL GO TO ROOM 106[address] UNDER DR. FRANKLIN. FAXED TO [facility] THE ORDER FOR THE BIPAP SETTINGS, [phone] FAX. PHONE FOR [facility], . I SPOKE WITH WILLAM IN ADMISSIONS AT [facility] AND FAXED THE BIPAP ORDER. SHE SAID THEY WILL TAKE THE PATIENT AFTER THE BARIATRIC BED AND BIPAP ARE THERE. SHE SAID SHE ALSO SPOKE WITH RODRÍGUEZ ABOUT A BARIATRIC BSC. PER RODRÍGUEZ, THE AUTH FOR [facility], BARIATRIC, IS [id number].
--- NOTE | 2018-11-23 15:46 | NUR ---
PLACED PT ON 4 L N/C ADDED H20 AND EXT. PER DR WANG
[2018-11-23 16:00] VITALS: BP 121/70
--- NOTE | 2018-11-23 16:05 | NUR ---
FAXED ORDER FOR OXIMIZER AND O2 TO [facility], [phone] AND TO RODRÍGUEZ AT [facility] [phone].I I SPOKE WITH JENNA AT [facility] AND INFORMED HER THAT THIS PATIENT HAS AN APPOINTMENT WITH [facility], [address] [place] [address] ON Nov AT 2;30P.M. IF PATIENT DISCHARGE BEFORE THAT DATE.
--- NOTE | 2018-11-23 17:25 | NUR ---
PATIENT SITTING IN BED PERFORMING INCENTIVE SPIROMETRY. SCHEDULED MEDICATIONS DUE GIVEN. DENIES ANY PAIN. CONDITION UNCHANGED. WILL CONTINUE TO MONITOR.
--- NOTE | 2018-11-23 19:08 | NUR ---
ADAM CALLED FOR PATIENT [facility] MAN. I CALLED RODRÍGUEZ BUT SHE'S NOT AVAILABLE. I SPOKE TO BISI AND SHE TOLD ME THAT EVERYTHING IS SET UP AT [facility]. SHE SAID IF THERE'S A PROBLEM CALL HER ON HER NUMBER .
--- NOTE | 2018-11-23 19:45 | NUR ---
DISCHARGE INSTRUCTIONS GIVEN TO PATIENT/FAMILY AT BEDSIDE REGARDING TRANSFER TO [facility] IN PREFERRED LANGUAGE OF [place] PATIENT PREFERS SON TO TRANSLATE INSTEAD OF USING TRANSLATION SERVICES. INSTRUCTIONS ON PT AND RT FOLLOW-UP, FOLLOW-UP WITH MD, DIET REGIMEN, MEDICATION REGIMEN PROVIDED. PATIENT/FAMILY VERBALIZED COMPLETE UNDERSTANDING. BURTON CATHETER REMOVED. RIGHT IJ REMOVED WITH MINIMAL BLOOD AND LUMEN COMPLETELY INTACT. PATIENT TOLERATED WELL CALLED [facility] AND GAVE REPORT TO SILVER MEADE. HALINA VERBALIZED COMPLETE UNDERSTANDING. PICKUP TIME BY [facility] TRANSPORT SCHEDULED FOR 1999. [facility] TO [facility] AWAITING FOR PATIENT ARRIVAL. WILL CONTINUE TO MONITOR.
--- NOTE | 2018-11-23 20:16 | NUR ---
[facility] ON UNIT TO TAKE PATIENT TO [facility]. PATIENT TRANSFERRED AT THIS TIME IN STABLE CONDITION WITH [facility].
--- NOTE | 2018-11-24 14:56 | NUR ---
Called [facility] and cancelled the appt. for 11/30/18 at 1430. Pt went to SNF.
== END 2018-11-23 20:30 | DRG 130 ==
LOC: MED 18:56 → MTU 11-09 00:18 → OBSVTOIN 11-09 11:38 → MIC 11-09 21:46 → MTU 11-22 18:00
PROVIDERS: ADMIT General Practice; ATTEND General Practice
PROC: 5A1955Z Respiratory Ventilation, Greater than 96 Consecutive Hours (ICD-10-PCS; principal; 2018-11-10)
PROC: 0BH17EZ Insertion of Endotracheal Airway into Trachea, Via Natural or Artificial Opening (ICD-10-PCS; 2018-11-10)
PROC: 02HV33Z Insertion of Infusion Device into Superior Vena Cava, Percutaneous Approach (ICD-10-PCS; 2018-11-10)
PROC: B548ZZA Ultrasonography of Superior Vena Cava, Guidance (ICD-10-PCS; 2018-11-10)
PROC: 5A09357 Assistance with Respiratory Ventilation, Less than 24 Consecutive Hours, Continuous Positive Airway Pressure (ICD-10-PCS; 2018-11-18)
PROC: 5A09357 Assistance with Respiratory Ventilation, Less than 24 Consecutive Hours, Continuous Positive Airway Pressure (ICD-10-PCS; 2018-11-19)
PROC: 5A09457 Assistance with Respiratory Ventilation, 24-96 Consecutive Hours, Continuous Positive Airway Pressure (ICD-10-PCS; 2018-11-20)
PROC: 5A09357 Assistance with Respiratory Ventilation, Less than 24 Consecutive Hours, Continuous Positive Airway Pressure (ICD-10-PCS; 2018-11-23)
DX: J96.21 Acute and chronic respiratory failure with hypoxia (principal); N17.0 Acute kidney failure with tubular necrosis; J18.9 Pneumonia, unspecified organism; E44.0 Moderate protein-calorie malnutrition; E11.65 Type 2 diabetes mellitus with hyperglycemia; E83.41 Hypermagnesemia; I07.1 Rheumatic tricuspid insufficiency; I27.29 Other secondary pulmonary hypertension; E66.2 Morbid (severe) obesity with alveolar hypoventilation; J96.22 Acute and chronic respiratory failure with hypercapnia; E83.42 Hypomagnesemia; L03.115 Cellulitis of right lower limb; L03.116 Cellulitis of left lower limb; M94.0 Chondrocostal junction syndrome [Tietze]; I89.0 Lymphedema, not elsewhere classified; E03.9 Hypothyroidism, unspecified; E78.5 Hyperlipidemia, unspecified; J44.9 Chronic obstructive pulmonary disease, unspecified; J98.11 Atelectasis; I27.81 Cor pulmonale (chronic); E87.1 Hypo-osmolality and hyponatremia; M19.90 Unspecified osteoarthritis, unspecified site; D25.9 Leiomyoma of uterus, unspecified; K80.20 Calculus of gallbladder without cholecystitis without obstruction; M25.562 Pain in left knee; I10 Essential (primary) hypertension; Z68.44 Body mass index [BMI] 60.0-69.9, adult; Z71.3 Dietary counseling and surveillance; Z79.84 Long term (current) use of oral hypoglycemic drugs; Z79.82 Long term (current) use of aspirin; Z79.899 Other long term (current) drug therapy; Z82.49 Family history of ischemic heart disease and other diseases of the circulatory system
CPT/HCPCS: 96374; 99285; G0378; 31500; 36415; 36600; 71045; 73564; 78582; 80048; 80053; 80305; 81003; 82150; 82803; 82948; 83036; 83605; 83690; 83735; 83880; 84100; 84439; 84443; 84484; 85025; 85379; 85610; 85730; 87040; 87070; 87081; 87086; 87205; 89220; 93005; 93970; 94002; 94003; 94640; 94660; 97110; 97116; 97530; C9113; J0696; J1265; J1642; J1644; J1650; J1815; J1885; J1940; J2060; J2250; J2270; J2543; J2704; J2920; J3475; J3490; J7030; J7042; J7060; J7620; Q0092